=== PATIENT | male | born 1985 | race Caucasian/White ===

== ENCOUNTER 2020-04-27 12:13 | Outpatient (RCR) | payer MEDICAID ==
[~2020-04-27] VITALS: Ht 185 cm; Wt 79.5 kg
[2020-04-27] MEDS ORDERED: PARO-49 PO (12:21)
[2020-04-27] MEDS ORDERED: CETI10TA21 PO (12:21)
[2020-04-27 12:49] LABS: BASOPHILS # (AUTO) 0.1 10^3/uL (0.0-0.1); BASOPHILS % (AUTO) 1 % (0-10); EOSINOPHILS # (AUTO) 0.5 10^3/uL (0.0-0.3); EOSINOPHILS % (AUTO) 8 % (0-10); HEMATOCRIT 43 % (40-54); HEMOGLOBIN 14.7 G/DL (13.3-17.7); LYMPHOCYTES # (AUTO) 1.3 X 10^3 (1.0-4.0); LYMPHOCYTES % (AUTO) 20 % (12-44); MEAN CORPUSCULAR HEMOGLOBIN 34 PG (25-34); MEAN CORPUSCULAR HGB CONC 35 G/DL (32-36); MEAN CORPUSCULAR VOLUME 97 FL (80-99); MEAN PLATELET VOLUME 9.2 FL (7.4-10.4); MONOCYTES # (AUTO) 0.9 X 10^3 (0.0-1.0); MONOCYTES % (AUTO) 13 % (0-12); NEUTROPHILS # (AUTO) 3.8 X 10^3 (1.8-7.8); NEUTROPHILS % (AUTO) 58 % (42-75); PLATELET COUNT 149 10^3/uL (130-400); RED CELL DISTRIBUTION WIDTH 12.7 % (10.0-14.5); WHITE BLOOD COUNT 6.6 10^3/uL (4.3-11.0)
[2020-04-27 12:58] LABS: CHLORIDE 100 MMOL/L (98-107); POTASSIUM 3.8 MMOL/L (3.6-5.0)
[2020-04-27 12:59] LABS: SODIUM 137 MMOL/L (135-145)
[2020-04-27 13:00] LABS: CALCIUM 9.2 MG/DL (8.5-10.1); GLUCOSE 113 MG/DL (70-105)
[2020-04-27 13:02] LABS: CARBON DIOXIDE 27 MMOL/L (21-32)
[2020-04-27 13:04] LABS: CREATININE SERUM 0.93 MG/DL (0.60-1.30); GFR ESTIMATED > 60
[2020-04-27 13:05] LABS: BUN/CREATININE RATIO 12
== END 2020-04-27 14:51 | disposition home or self-care (01) ==
LOC: PREOP 12:13
PROVIDERS: ATTEND Otolaryngology Otolaryngology/Facial Plastic Surgery
DX: Z01.812 Encounter for preprocedural laboratory examination (principal); Z01.810 Encounter for preprocedural cardiovascular examination; Z11.59 Encounter for screening for other viral diseases; J34.3 Hypertrophy of nasal turbinates
CPT/HCPCS: 36415; 80048; 85025; 87081; 87635; 93005

== ENCOUNTER 2020-05-01 06:11 | Day surgery (SDC) | payer MEDICAID ==
[~2020-05-01] VITALS: Ht 185 cm; Wt 79.5 kg
[2020-05-01] VITALS (8 sets, daily range): BP systolic 144–168; BP diastolic 67–99
[~2020-05-01 06:11] MED LIST: CETI10TA21 PO; PARO-49 PO
--- OUTSIDE RECORDS SUMMARY | 2020-05-01 06:17 | XMS REPORT | Clinical Summary ---
Author Author Admin, Thierry Palumbo Organization [employer] Address Unknown Phone Unavailable Allergies, Adverse Reactions, Alerts Allergy Name Reaction Description Start Date Severity Status Pr ovider SULFA Critical Active Robert Alireza A PRN Conditions or Problems Problem Name Problem Code Onset Date Status Entry Date Provider Comment Standard Description Annotate Sinusitis, acute (sinus infection) 461.9 Resolved 2 Quique Frey MD Acute sinusitis, unspecified Pharyngitis, acute / sore throat 462 Resolved 201 9 Quique Frey MD Acute pharyngitis Sinusitis, acute 461.9 Resolved Quique Frey MD Acute sinusitis, unspecified Cough 786.2 Resolved Quique Frey MD Cough BMI 21-21.9 Refinement Quique Frey MD Body Mass Index between 19-24, adult BMI 23-23.9 Active Quique Frey MD Body Mass Index between 19-24, adult Health screening V70.0 Active Quique Carl Routine general medical examination at a health care facility Tobacco dependence, continuous 305.1 Active 05/01 Quique Frey MD Tobacco use disorder Back pain, lumbar, with radiculopathy 724.4 Active Quique Frey MD Thoracic or lumbosacral neuritis or radi culitis, unspecified Neck pain, chronic 723.1 Active Quique Frey MD Cervicalgia Generalized anxiety disorder 300.00 Active Quique Frey MD Anxiety state, unspecified Allergic rhinitis 477.9 Active Quique Frey MD Allergic rhinitis, cause unspecified Hx of vasectomy V26.52 Active Quique Frey MD Vasectomy status Epididymitis Active Anthony Conway MD Orchitis and epididymitis, unspecified Sinus congestion 478.19 Active Quique Carl Other disease of nasal cavity and sinuses Sinusitis, acute (sinus infection) ICD-461.9 I nactive Quique Frey MD Pharyngitis, acute / sore throat ICD-462 [place] ctive Quique Frey MD Sinusitis, acute ICD-461.9 Inactive Quique Graff MD Cough ICD-786.2 Inactive Quique Frey MD 2018 Medication List Medication Instructions Start Date Stop Date Generic Name NDC Status Provider Patient Instruction CIPRO 500 MG ORAL TABLET 1 tablet two times daily 2019 CIPROFLOXACIN HCL 55416373243 No Longer Active Anthony Conway MD Active CHANTIX STARTING MONTH SANG 0.5 MG X 11 & 1 MG X 42 ORAL TABL ET 1 po qd VARENICLINE TARTRATE 91097246999 Active Quique Frey MD Active CHANTIX STARTING MONTH SANG 0.5 MG X 11 & 1 MG X 42 ORAL TABL ET As directed. VARENICLINE TARTRATE 20575457483 No Longer Active Cony Frey MD Active HYDROXYZINE HCL 25 MG ORAL TABLET 1 po TID PRN Anxiety HYDROXYZINE HCL 75950037336 No Longer Active Quique Frey MD Ac tive PAROXETINE HCL 20 MG ORAL TABLET 1 po qd PAR OXETINE HCL 92346728799 Active Quique Frey MD Active OXYCODONE-ACETAMINOPHEN 7.5-325 MG ORAL TABLET 1 po TID OXYCODONE-ACETAMINOPHEN 45075688969 No Longer Active Quique Frey MD Active ZYBAN 150 MG ORAL TABLET EXTENDED RELEASE 12 HOUR 1 po qd x 1 week, then 1 po BID BUPROPION HCL (SMOKING DETER) 20009674622 No Lo nger Active Quique Frey MD Active GABAPENTIN 300 MG ORAL CAPSULE 1 po qHS GABAP ENTIN 65138107453 No Longer Active Quique Frey MD Active CEFDINIR 300 MG ORAL CAPSULE 1 po BID x 10 days CEFDINIR 23500984722 No Longer Active Quique Frey MD Active ZYRTEC ALLERGY 10 MG ORAL CAPSULE 1 po qd CE TIRIZINE HCL 98584737060 No Longer Active Quique Frye MD Active FLONASE 50 MCG/ACT NASAL SUSPENSION 1 spray each nostr il twice daily for allergies and runny nose FLUTICASONE PROPIONATE 32278872978 No Longer Active Quique Frey MD Active ZITHROMAX Z-SANG 250 MG ORAL TABLET 2 today, then 1 daily for 4 d ays AZITHROMYCIN 76051725284 No Longer Active Robert Alireza GAMBINO Active PREDNISONE 50 MG ORAL TABLET take 50 mg dialy for 6 days PREDNISONE 37231651963 No Longer Active Robert Alireza IT HELP DESK ASSOCIATE Active (OXYCODONE-ACETAMINOPHEN) (OXYCODONE-AC ETAMINOPHEN) No Longer Active Robert Alireza IT HELP DESK ASSOCIATE Active FLONASE 50 MCG/ACT NASAL SUSPENSION 1 spray each nostr il twice daily for allergies and runny nose FLONASE 50 MCG/ ACT NASAL SUSPENSION FLUTICASONE PROPIONATE Inactive ZYRTEC ALLERGY 10 MG ORAL CAPSULE 1 po qd ZYRTEC ALLERGY 10 MG ORAL CAPSULE CETIRIZINE HCL Inactive GABAPENTIN 300 MG ORAL CAPSULE 1 po qHS GABAPENTIN 300 MG ORAL CAPSULE 273479 GABAPENTIN Inactive OXYCODONE-ACETAMINOPHEN 7.5-325 MG ORAL TABLET 1 po TID OXYCODONE-ACETAMINOPHEN 7.5-325 MG ORAL TABLET 4661578 OXYCODONE-ALYSA TAMINOPHEN Inactive HYDROXYZINE HCL 25 MG ORAL TABLET 1 po TID PRN Anxiety HYDROXYZINE HCL 25 MG ORAL TABLET 753654 HYDROXYZINE HCL Inacti ve CHANTIX STARTING MONTH SANG 0.5 MG X 11 & 1 MG X 42 ORAL TABL ET As directed. CHANTIX STARTING MONTH SANG 0 .5 MG X 11 & 1 MG X 42 ORAL TABLET VARENICLINE TARTRATE Inactive PREDNISONE 50 MG ORAL TABLET take 50 mg dialy for 6 days PREDNISONE 50 MG ORAL TABLET 337268 PREDNISONE Inactive ZITHROMAX Z-SANG 250 MG ORAL TABLET 2 today, then 1 daily for 4 d ays ZITHROMAX Z-SANG 250 MG ORAL TABLET 322762 AZITHROMYCIN Inactive CEFDINIR 300 MG ORAL CAPSULE 1 po BID x 10 days 02/04 CEFDINIR 300 MG ORAL CAPSULE 693829 CEFDINIR Inactive CIPRO 500 MG ORAL TABLET 1 tablet two times daily 2019 CIPRO 500 MG ORAL TABLET 661507 CIPROFLOXACIN HCL Inactive Vital Signs Date Name Value Unit Range Description blood pressure, diastolic, repeated by physician 74 BP arteaga blood pressure, diastolic 74 mm[Hg] BP arteaga blood pressure, systolic, repeated by physician 140 BP sys blood pressure, systolic 140 mm[Hg] BP sys height E&M 72 [in_us] Bdy height pulse rate E&M 70 /min Heart rate temperature E&M 98.2 [degF] Body temp erature weight E&M 171 [lb_av] Weight Measure d blood pressure, diastolic, repeated by physician 79 BP arteaga blood pressure, diastolic 79 mm[Hg] BP arteaga blood pressure, systolic, repeated by physician 139 BP sys blood pressure, systolic 139 mm[Hg] BP sys height E&M 72 [in_us] Bdy height pulse rate E&M 67 /min Heart rate temperature E&M 98.5 [degF] Body temp erature weight E&M 174.50 [lb_av] Weight Measure d blood pressure, diastolic, repeated by physician 67 BP arteaga blood pressure, diastolic 67 mm[Hg] BP arteaga blood pressure, systolic, repeated by physician 119 BP sys blood pressure, systolic 119 mm[Hg] BP sys height E&M 72 [in_us] Bdy height pulse rate E&M 75 /min Heart rate temperature E&M 97.8 [degF] Body temp erature weight E&M 158.06 [lb_av] Weight Measure d blood pressure, diastolic 74 mm[Hg] BP arteaga blood pressure, systolic 128 mm[Hg] BP sys height E&M 72 [in_us] Bdy height pulse rate E&M 70 /min Heart rate temperature E&M 98.6 [degF] Body temp erature weight E&M 158 [lb_av] Weight Measure d Diagnostic Results Date Name Value Unit Range Description Lab Report: CBC, Comp. Metabolic Panel, Lipid Panel - Chemistry sodium, serum 138 mmol/L 056-879 1480/02/03 carbon dioxide, venous blood 32.8 mmol/L 21.0-32 .0 potassium, serum 4.6 mmol/L 3.5-5.2 chloride, serum 100 mmol/L 98-107 blood glucose 100 mg/dL 65-95 urea nitrogen, blood 16 mg/dL 7-18 creatinine, serum 0.95 mg/dL 0.60-1.30 Estimated Glomerular Filtration Rate (calc) 97 (?) mL/min/1.73m2 = OR > 60 mL/min alanine aminotransferase (SGPT), serum 25 U/L 12-78 aspartate aminotransferase (SGOT), serum 56 U/L 15-37 calcium, serum 9.2 mg/dL 8.5-10.1 bilirubin, serum, total 1.60 mg/dL 0.00-1.00 cholesterol, serum 212 mg/dL 175-112 6331/02/03 triglyceride, serum, fasting 51 mg/dL 30-200 HDL cholesterol, serum 101 mg/dL 32-60 LDL cholesterol, serum 101 mg/dL 0-130 Lab Report: CBC, Comp. Metabolic Panel, Lipid Panel - Hematology leukocyte count, blood 5.3 10^3/MM^3 10*3/mm3 4.6-10.2 erythrocyte (RBC) count 4.97 10^6/MM^3 10*6/mm3 4.50-6.5 0 hemoglobin, blood 16.4 g/dL 14.0-18.0 hematocrit, blood 46.7 % 40.0-54.0 mean corpuscular volume, RBC 94 fL 80-97 mean corpuscular hemoglobin, RBC 33.0 pg 27. 0-31.2 mean corpuscular hemoglobin concentration, RBC 35.1 G/DL % 31.8-35.4 red blood cell distribution width 11.6 % 11 .6-14.8 platelet count 206 10^3/MM^3 10*3/mm3 142-424 Lab Report: CBC, Comp. Metabolic Panel, Lipid Panel - Lab Alkaline phosphatase 66 50-136 Encounters Code Encounter Date Provider Facility CPT-69531 Level 3 New Patient 10:41:29 MARBLE CUTTER OPERATOR Anthony aguila MD [facility] CPT-40558 Level 4 Est. Patient 14:20:42 MARBLE CUTTER OPERATOR Quique Frey MD [facility] CPT-20610 Level 4 Est. Patient 13:56:52 CDT Quique Frey MD [facility] CPT-05665 Level 3 Est. Patient 09:33:16 MARBLE CUTTER OPERATOR Quique Frey MD [facility] CPT-50559 Level 3 Est. Patient 10:05:19 MARBLE CUTTER OPERATOR Robert kurtz APRN [facility] Procedures Code Procedure Name Date Entry Date Standard Desc ription [id number] (4274F 2P) Patient Reason Influenza immu nization not administered 10:41:29 MARBLE CUTTER OPERATOR CPT-38111 Venipuncture Draw Fee 10:11:25 MARBLE CUTTER OPERATOR CPT-49826 Chest, 2 views 09:41:42 MARBLE CUTTER OPERATOR
--- OUTSIDE RECORDS SUMMARY | 2020-05-01 06:17 | XMS REPORT | Clinical Summary ---
Author Author Admin, Thierry Palumbo Organization [employer] Address Unknown Phone Unavailable Allergies, Adverse Reactions, [...] MD Pharyngitis, acute / sore throat ICD-462 [place] ctive Quique Frey MD Sinusitis, acute ICD-461.9 Inactive Quique Graff MD Cough ICD-786.2 Inactive Quique Frey MD 2018 Medication List Medication Instructions Start Date Stop Date Generic Name NDC Status Provider Patient Instruction PAROXETINE HCL 20 MG ORAL TABLET 1.5 po qd PAR OXETINE HCL 81133505545 Active Quique Frey MD Active CIPRO 500 MG ORAL TABLET 1 tablet two times daily 2019 CIPROFLOXACIN HCL 41124437271 No Longer Active Anthony Conway MD Active CHANTIX STARTING MONTH SANG 0.5 MG X 11 & 1 MG X 42 ORAL TABL ET 1 po qd VARENICLINE TARTRATE 91561820211 Active Quique Frey MD Active CHANTIX STARTING MONTH SANG 0.5 MG X 11 & 1 MG X 42 ORAL TABL ET As directed. VARENICLINE TARTRATE 33793237752 No Longer Active Cony Frey MD Active HYDROXYZINE HCL 25 MG ORAL TABLET 1 po TID PRN Anxiety HYDROXYZINE HCL 43524725246 No Longer Active Quique Frey MD Ac tive OXYCODONE-ACETAMINOPHEN 7.5-325 MG ORAL TABLET 1 po TID OXYCODONE-ACETAMINOPHEN 91491879431 No Longer Active Quique Frey MD Active ZYBAN 150 MG ORAL TABLET EXTENDED RELEASE 12 HOUR 1 po qd x 1 week, then 1 po BID BUPROPION HCL (SMOKING DETER) 47236266962 No Lo nger Active Quique Frey MD Active GABAPENTIN 300 MG ORAL CAPSULE 1 po qHS GABAP ENTIN 88661864706 No Longer Active Quique Frey MD Active CEFDINIR 300 MG ORAL CAPSULE 1 po BID x 10 days CEFDINIR 33034754608 No Longer Active Quique Frey MD Active ZYRTEC ALLERGY 10 MG ORAL CAPSULE 1 po qd CE TIRIZINE HCL 78171333263 No Longer Active Quique Frey MD Active FLONASE 50 MCG/ACT NASAL SUSPENSION 1 spray each nostr il twice daily for allergies and runny nose FLUTICASONE PROPIONATE 04176190991 No Longer Active Quique Frey MD Active ZITHROMAX Z-SANG 250 MG ORAL TABLET 2 today, then 1 daily for 4 d ays AZITHROMYCIN 81093556964 No Longer Active Robert Alireza CONVERTING TECHNICIAN Active PREDNISONE 50 MG ORAL TABLET take 50 mg dialy for 6 days PREDNISONE 85185211126 No Longer Active Robert Alireza CONVERTING TECHNICIAN Active (OXYCODONE-ACETAMINOPHEN) (OXYCODONE-AC ETAMINOPHEN) No Longer Active Robert Alireza CONVERTING TECHNICIAN Active CIPRO 500 MG ORAL TABLET 1 tablet two times daily 2019 CIPRO 500 MG ORAL TABLET 782282 CIPROFLOXACIN HCL Inactive HYDROXYZINE HCL 25 MG ORAL TABLET 1 po TID PRN Anxiety HYDROXYZINE HCL 25 MG ORAL TABLET 205457 HYDROXYZINE HCL Inacti ve PREDNISONE 50 MG ORAL TABLET take 50 mg dialy for 6 days PREDNISONE 50 MG ORAL TABLET 093995 PREDNISONE Inactive GABAPENTIN 300 MG ORAL CAPSULE 1 po qHS GABAPENTIN 300 MG ORAL CAPSULE 426287 GABAPENTIN Inactive CEFDINIR 300 MG ORAL CAPSULE 1 po BID x 10 days 02/04 CEFDINIR 300 MG ORAL CAPSULE 061153 CEFDINIR Inactive ZITHROMAX Z-SANG 250 MG ORAL TABLET 2 today, then 1 daily for 4 d ays ZITHROMAX Z-SANG 250 MG ORAL TABLET 109475 AZITHROMYCIN Inactive FLONASE 50 MCG/ACT NASAL SUSPENSION 1 spray each nostr il twice daily for allergies and runny nose FLONASE 50 MCG/ ACT NASAL SUSPENSION FLUTICASONE PROPIONATE Inactive OXYCODONE-ACETAMINOPHEN 7.5-325 MG ORAL TABLET 1 po TID OXYCODONE-ACETAMINOPHEN 7.5-325 MG ORAL TABLET 4946751 OXYCODONE-ALYAS TAMINOPHEN Inactive CHANTIX STARTING MONTH SANG 0.5 MG X 11 & 1 MG X 42 ORAL TABL ET As directed. CHANTIX STARTING MONTH SANG 0 .5 MG X 11 & 1 MG X 42 ORAL TABLET VARENICLINE TARTRATE Inactive ZYRTEC ALLERGY 10 MG ORAL CAPSULE 1 po qd ZYRTEC ALLERGY 10 MG ORAL CAPSULE CETIRIZINE HCL Inactive Vital Signs Date Name Value Unit Range Description blood pressure, diastolic, repeated by physician 74 BP arteaga blood pressure, diastolic 74 mm[Hg] BP arteaga blood pressure, systolic, repeated by physician 140 BP sys blood pressure, systolic 140 mm[Hg] BP sys height E&M 72 [in_us] Bdy height pulse rate 70 /min Heart rate temperature E&M 98.2 [degF] Body temp erature weight E&M 171 [lb_av] Weight Measure d blood pressure, diastolic, repeated by physician 79 BP arteaga blood pressure, diastolic 79 mm[Hg] BP arteaga blood pressure, systolic, repeated by physician 139 BP sys blood pressure, systolic 139 mm[Hg] BP sys height E&M 72 [in_us] Bdy height pulse rate 67 /min Heart rate temperature E&M 98.5 [degF] Body temp erature weight E&M 174.50 [lb_av] Weight Measure d blood pressure, diastolic, repeated by physician 67 BP arteaga blood pressure, diastolic 67 mm[Hg] BP arteaga blood pressure, systolic, repeated by physician 119 BP sys blood pressure, systolic 119 mm[Hg] BP sys height E&M 72 [in_us] Bdy height pulse rate 75 /min Heart rate temperature E&M 97.8 [degF] Body temp erature weight E&M 158.06 [lb_av] Weight Measure d blood pressure, diastolic 74 mm[Hg] BP arteaga blood pressure, systolic 128 mm[Hg] BP sys height E&M 72 [in_us] Bdy height pulse rate 70 /min Heart rate temperature E&M 98.6 [degF] Body temp erature weight E&M 158 [lb_av] Weight Measure d Diagnostic Results Date Name Value Unit Range Description Lab Report: CBC, Comp. Metabolic Panel, Lipid Panel - Chemistry sodium, serum 138 mmol/L 581-620 4011/02/03 carbon dioxide, venous blood 32.8 mmol/L 21.0-32 [...] 1.60 mg/dL 0.00-1.00 cholesterol, serum 212 mg/dL 924-933 6758/02/03 triglyceride, serum, fasting 51 mg/dL 30-200 HDL cholesterol, serum 101 mg/dL 32-60 LDL cholesterol, serum 101 mg/dL 0-130 Lab Report: CBC, Comp. Metabolic Panel, Lipid Panel - Hematology mean corpuscular volume, RBC 94 fL 80-97 hematocrit, blood 46.7 % 40.0-54.0 hemoglobin, blood 16.4 g/dL 14.0-18.0 erythrocyte (RBC) count 4.97 10^6/MM^3 10*6/mm3 4.50-6.5 0 leukocyte count, blood 5.3 10^3/MM^3 10*3/mm3 4.6-10.2 mean corpuscular hemoglobin, RBC 33.0 pg 27. 0-31.2 mean corpuscular hemoglobin concentration, RBC 35.1 G/DL % 31.8-35.4 red blood cell distribution width 11.6 % 11 .6-14.8 platelet count 206 10^3/MM^3 10*3/mm3 142-424 Lab Report: CBC, Comp. Metabolic Panel, Lipid Panel - Lab Alkaline phosphatase 66 50-136 Encounters Code Encounter Date Provider Facility CPT-22593 Level 3 New Patient 10:41:29 DATA CONTROL CLERK Anthony aguila MD [facility] CPT-02422 Level 4 Est. Patient 14:20:42 DATA CONTROL CLERK Quique Frey MD [facility] CPT-72389 Level 4 Est. Patient 13:56:52 CDT Quique Frey MD [facility] CPT-68761 Level 3 Est. Patient 09:33:16 DATA CONTROL CLERK Quique Frey MD [facility] CPT-70444 Level 3 Est. Patient 10:05:19 DATA CONTROL CLERK Robert kurtz APRN [facility] Procedures Code Procedure Name Date Entry Date Standard Desc ription [id number] (4274F 2P) Patient Reason Influenza immu nization not administered 10:41:29 DATA CONTROL CLERK CPT-25751 Venipuncture Draw Fee 10:11:25 DATA CONTROL CLERK CPT-37878 Chest, 2 views 09:41:42 DATA CONTROL CLERK
--- OUTSIDE RECORDS SUMMARY | 2020-05-01 06:17 | XMS REPORT | Clinical Summary ---
Author Author Admin, Thierry Palumbo Organization [employer] Address Unknown Phone Unavailable Allergies, Adverse Reactions, [...] MD Pharyngitis, acute / sore throat ICD-462 [place] ctive Quique Frey MD Sinusitis, acute ICD-461.9 Inactive Quique Graff MD Cough ICD-786.2 Inactive Quique Frey MD 2018 Medication List Medication Instructions Start Date Stop Date Generic Name NDC Status Provider Patient Instruction CIPRO 500 MG ORAL TABLET 1 tablet two times daily 2019 CIPROFLOXACIN HCL 95180482345 No Longer Active Anthony Conway MD Active CHANTIX STARTING MONTH SANG 0.5 MG X 11 & 1 MG X 42 ORAL TABL ET 1 po qd VARENICLINE TARTRATE 85665849404 Active Quique Frey MD Active CHANTIX STARTING MONTH SANG 0.5 MG X 11 & 1 MG X 42 ORAL TABL ET As directed. VARENICLINE TARTRATE 00384300009 No Longer Active Cony Frey MD Active HYDROXYZINE HCL 25 MG ORAL TABLET 1 po TID PRN Anxiety HYDROXYZINE HCL 08182529051 No Longer Active Quique Frey MD Ac tive PAROXETINE HCL 20 MG ORAL TABLET 1 po qd PAR OXETINE HCL 32236390627 Active Quique Frey MD Active OXYCODONE-ACETAMINOPHEN 7.5-325 MG ORAL TABLET 1 po TID OXYCODONE-ACETAMINOPHEN 68032058886 No Longer Active Quique Frey MD Active ZYBAN 150 MG ORAL TABLET EXTENDED RELEASE 12 HOUR 1 po qd x 1 week, then 1 po BID BUPROPION HCL (SMOKING DETER) 68314024744 No Lo nger Active Quique Frey MD Active GABAPENTIN 300 MG ORAL CAPSULE 1 po qHS GABAP ENTIN 62443284021 No Longer Active Quique Frey MD Active CEFDINIR 300 MG ORAL CAPSULE 1 po BID x 10 days CEFDINIR 39268570593 No Longer Active Quique Frey MD Active ZYRTEC ALLERGY 10 MG ORAL CAPSULE 1 po qd CE TIRIZINE HCL 60905306688 No Longer Active Quique Frey MD Active FLONASE 50 MCG/ACT NASAL SUSPENSION 1 spray each nostr il twice daily for allergies and runny nose FLUTICASONE PROPIONATE 92955958744 No Longer Active Quique Frey MD Active ZITHROMAX Z-ASNG 250 MG ORAL TABLET 2 today, then 1 daily for 4 d ays AZITHROMYCIN 24951861083 No Longer Active Robert Alireza GAMBINO Active PREDNISONE 50 MG ORAL TABLET take 50 mg dialy for 6 days PREDNISONE 38159499212 No Longer Active Robert Alireza FIRE COORDINATOR Active (OXYCODONE-ACETAMINOPHEN) (OXYCODONE-AC ETAMINOPHEN) No Longer Active Robert Alireza FIRE COORDINATOR Active FLONASE 50 MCG/ACT NASAL SUSPENSION 1 spray each nostr il twice daily for allergies and runny nose FLONASE 50 MCG/ ACT NASAL SUSPENSION FLUTICASONE PROPIONATE Inactive ZYRTEC ALLERGY 10 MG ORAL CAPSULE 1 po qd ZYRTEC ALLERGY 10 MG ORAL CAPSULE CETIRIZINE HCL Inactive GABAPENTIN 300 MG ORAL CAPSULE 1 po qHS GABAPENTIN 300 MG ORAL CAPSULE 481822 GABAPENTIN Inactive OXYCODONE-ACETAMINOPHEN 7.5-325 MG ORAL TABLET 1 po TID OXYCODONE-ACETAMINOPHEN 7.5-325 MG ORAL TABLET 4813278 OXYCODONE-ALYSA TAMINOPHEN Inactive HYDROXYZINE HCL 25 MG ORAL TABLET 1 po TID PRN Anxiety HYDROXYZINE HCL 25 MG ORAL TABLET 286993 HYDROXYZINE HCL Inacti ve CHANTIX STARTING MONTH SANG 0.5 MG X 11 & 1 MG X 42 ORAL TABL ET As directed. CHANTIX STARTING MONTH SANG 0 .5 MG X 11 & 1 MG X 42 ORAL TABLET VARENICLINE TARTRATE Inactive PREDNISONE 50 MG ORAL TABLET take 50 mg dialy for 6 days PREDNISONE 50 MG ORAL TABLET 143920 PREDNISONE Inactive ZITHROMAX Z-SANG 250 MG ORAL TABLET 2 today, then 1 daily for 4 d ays ZITHROMAX Z-SANG 250 MG ORAL TABLET 191810 AZITHROMYCIN Inactive CEFDINIR 300 MG ORAL CAPSULE 1 po BID x 10 days 02/04 CEFDINIR 300 MG ORAL CAPSULE 153623 CEFDINIR Inactive CIPRO 500 MG ORAL TABLET 1 tablet two times daily 2019 CIPRO 500 MG ORAL TABLET 237312 CIPROFLOXACIN HCL Inactive Vital Signs Date Name [...] Panel - Chemistry sodium, serum 138 mmol/L 551-093 4476/02/03 carbon dioxide, venous blood 32.8 mmol/L 21.0-32 [...] 1.60 mg/dL 0.00-1.00 cholesterol, serum 212 mg/dL 982-234 1139/02/03 triglyceride, serum, fasting 51 mg/dL 30-200 HDL [...] 50-136 Encounters Code Encounter Date Provider Facility CPT-50000 Level 3 New Patient 10:41:29 PROTOHISTORIAN Anthony aguila MD [facility] CPT-07951 Level 4 Est. Patient 14:20:42 PROTOHISTORIAN Quique Frey MD [facility] CPT-63166 Level 4 Est. Patient 13:56:52 CDT Quique Frey MD [facility] CPT-34054 Level 3 Est. Patient 09:33:16 PROTOHISTORIAN Quique Frey MD [facility] CPT-61020 Level 3 Est. Patient 10:05:19 PROTOHISTORIAN Robert kurtz APRN [facility] Procedures Code Procedure Name Date Entry Date Standard Desc ription [id number] (4274F 2P) Patient Reason Influenza immu nization not administered 10:41:29 PROTOHISTORIAN CPT-55578 Venipuncture Draw Fee 10:11:25 PROTOHISTORIAN CPT-30336 Chest, 2 views 09:41:42 PROTOHISTORIAN
--- OUTSIDE RECORDS SUMMARY | 2020-05-01 06:18 | XMS REPORT | Clinical Summary ---
Author Author Admin, Thierry Palumbo Organization [facility] Address Unknown Phone Unavailable Allergies, Adverse Reactions, [...] V26.52 Active Quique Frey MD Vasectomy status Sinusitis, acute (sinus infection) ICD-461.9 I nactive Quique Frey MD Pharyngitis, acute / sore throat ICD-462 [place] ctive Quique Frey MD Sinusitis, acute ICD-461.9 Inactive Quique Graff MD Cough ICD-786.2 Inactive Quique Frey MD 2018 Medication List Medication Instructions Start Date Stop Date Generic Name NDC Status Provider Patient Instruction CHANTIX STARTING MONTH SANG 0.5 MG X 11 & 1 MG X 42 ORAL TABL ET 1 po qd VARENICLINE TARTRATE 80762236882 Active Quique Frey MD Active CHANTIX STARTING MONTH SANG 0.5 MG X 11 & 1 MG X 42 ORAL TABL ET As directed. VARENICLINE TARTRATE 25246217811 No Longer Active Mar wayne Frey MD Active HYDROXYZINE HCL 25 MG ORAL TABLET 1 po TID PRN Anxiety HYDROXYZINE HCL 34468228679 No Longer Active Quique Frey MD Ac tive PAROXETINE HCL 20 MG ORAL TABLET 1 po qd PAR OXETINE HCL 41573162593 Active Quique Frey MD Active OXYCODONE-ACETAMINOPHEN 7.5-325 MG ORAL TABLET 1 po TID OXYCODONE-ACETAMINOPHEN 90778242549 No Longer Active Quique Frey MD Active ZYBAN 150 MG ORAL TABLET EXTENDED RELEASE 12 HOUR 1 po qd x 1 week, then 1 po BID BUPROPION HCL (SMOKING DETER) 78013421709 No Lo nger Active Quique Frey MD Active GABAPENTIN 300 MG ORAL CAPSULE 1 po qHS GABAP ENTIN 19759411684 No Longer Active Quique Frey MD Active CEFDINIR 300 MG ORAL CAPSULE 1 po BID x 10 days CEFDINIR 59819842581 No Longer Active Quique Frey MD Active ZYRTEC ALLERGY 10 MG ORAL CAPSULE 1 po qd CE TIRIZINE HCL 00325746686 No Longer Active Quique Frey MD Active FLONASE 50 MCG/ACT NASAL SUSPENSION 1 spray each nostr il twice daily for allergies and runny nose FLUTICASONE PROPIONATE 91975193475 No Longer Active Quique Frey MD Active ZITHROMAX Z-SANG 250 MG ORAL TABLET 2 today, then 1 daily for 4 d ays AZITHROMYCIN 57993959576 No Longer Active Robert Alireza DRY CLEANER HELPER Active PREDNISONE 50 MG ORAL TABLET take 50 mg dialy for 6 days PREDNISONE 13026617617 No Longer Active Robert Alireza DRY CLEANER HELPER Active (OXYCODONE-ACETAMINOPHEN) (OXYCODONE-AC ETAMINOPHEN) No Longer Active Robert Alireza DRY CLEANER HELPER Active FLONASE 50 MCG/ACT NASAL SUSPENSION 1 spray each nostr il twice daily for allergies and runny nose FLONASE 50 MCG/ ACT NASAL SUSPENSION FLUTICASONE PROPIONATE Inactive ZYRTEC ALLERGY 10 MG ORAL CAPSULE 1 po qd ZYRTEC ALLERGY 10 MG ORAL CAPSULE CETIRIZINE HCL Inactive GABAPENTIN 300 MG ORAL CAPSULE 1 po qHS GABAPENTIN 300 MG ORAL CAPSULE 929608 GABAPENTIN Inactive OXYCODONE-ACETAMINOPHEN 7.5-325 MG ORAL TABLET 1 po TID OXYCODONE-ACETAMINOPHEN 7.5-325 MG ORAL TABLET 6210691 OXYCODONE-ALYSA TAMINOPHEN Inactive HYDROXYZINE HCL 25 MG ORAL TABLET 1 po TID PRN Anxiety HYDROXYZINE HCL 25 MG ORAL TABLET 346297 HYDROXYZINE HCL Inacti ve CHANTIX STARTING MONTH SANG 0.5 MG X 11 & 1 MG X 42 ORAL TABL ET As directed. CHANTIX STARTING MONTH SANG 0 .5 MG X 11 & 1 MG X 42 ORAL TABLET VARENICLINE TARTRATE Inactive PREDNISONE 50 MG ORAL TABLET take 50 mg dialy for 6 days PREDNISONE 50 MG ORAL TABLET 742683 PREDNISONE Inactive ZITHROMAX Z-SANG 250 MG ORAL TABLET 2 today, then 1 daily for 4 d ays ZITHROMAX Z-SANG 250 MG ORAL TABLET 363760 AZITHROMYCIN Inactive CEFDINIR 300 MG ORAL CAPSULE 1 po BID x 10 days 02/04 CEFDINIR 300 MG ORAL CAPSULE 648166 CEFDINIR Inactive Vital Signs Date Name Value Unit Range Description blood pressure, diastolic, repeated by physician 79 [...] weight E&M 158 [lb_av] Weight Measure d blood pressure, diastolic 72 mm[Hg] BP artaega blood pressure, systolic 127 mm[Hg] BP sys height E&M 72 [in_us] Bdy height pulse rate E&M 75 /min Heart rate temperature E&M 98.0 [degF] Body temp erature weight E&M 152.50 [lb_av] Weight Measure d blood pressure, diastolic, repeated by physician 71 BP arteaga blood pressure, diastolic 71 mm[Hg] BP arteaga blood pressure, systolic, repeated by physician 140 BP sys blood pressure, systolic 140 mm[Hg] BP sys pulse rate E&M 74 /min Heart rate temperature E&M 97.6 [degF] Body temp erature weight E&M 152 [lb_av] Weight Measure d Diagnostic Results Date Name Value Unit Range Description Lab Report: CBC W/DIFF - Hematology leukocyte count, blood 6.4 10^3/MM^3 10*3/mm3 4.6-10.2 neutrophils as percent of blood leukocytes 65.8 % 42.2-75.2 monocytes as percent of blood leukocytes 9.6 % 1.7-9.3 lymphocytes as percent of blood leukocytes 21.3 % 20.5-51.1 erythrocyte (RBC) count 5.17 10^6/MM^3 10*6/mm3 4.50-6.5 0 hemoglobin, blood 16.5 g/dL 14.0-18.0 hematocrit, blood 48.7 % 40.0-54.0 mean corpuscular volume, RBC 94 fL 80-97 mean corpuscular hemoglobin, RBC 32.0 pg 27. 0-31.2 mean corpuscular hemoglobin concentration, RBC 33.9 G/DL % 31.8-35.4 red blood cell distribution width 10.9 % 11 .6-14.8 platelet count 250 10^3/MM^3 10*3/mm3 142-424 Lab Report: CBC, Comp. Metabolic Panel, Lipid Panel - Chemistry sodium, serum 138 mmol/L 633-485 8144/02/03 carbon dioxide, venous blood 32.8 mmol/L 21.0-32 [...] 1.60 mg/dL 0.00-1.00 cholesterol, serum 212 mg/dL 514-725 3447/02/03 triglyceride, serum, fasting 51 mg/dL 30-200 HDL [...] Panel - Lab Alkaline phosphatase 66 50-136 Lab Report: Comp. Metabolic Panel - Chem istry sodium, serum 138 mmol/L 708-085 7556/03/01 carbon dioxide, venous blood 29.2 mmol/L 21.0-32 .0 potassium, serum 4.5 mmol/L 3.5-5.2 chloride, serum 98 mmol/L 98-107 blood glucose 82 mg/dL 65-95 urea nitrogen, blood 14 mg/dL 7-18 creatinine, serum 0.83 mg/dL 0.60-1.30 Estimated Glomerular Filtration Rate (calc) 115 (?) mL/min/1.73m2 = OR > 60 mL/min alanine aminotransferase (SGPT), serum 32 U/L 12-78 aspartate aminotransferase (SGOT), serum 33 U/L 15-37 calcium, serum 8.6 mg/dL 8.5-10.1 bilirubin, serum, total 1.70 mg/dL 0.00-1.00 Lab Report: Comp. Metabolic Panel - Lab Alkaline phosphatase 62 50-136 Office Visit: chest congestion, headache s 302 - Chemistry HDL cholesterol, serum, target level 40 mg/dL cholesterol, target level 200 mg/dL triglyceride, target level 150 mg/dL Encounters Code Encounter Date Provider Facility CPT-67355 Level 4 Est. Patient 14:20:42 DIGITAL MARKETING ANALYST Quique Frey MD [facility] CPT-71060 Level 4 Est. Patient 13:56:52 CDT Quique Frey MD [facility] CPT-65103 Level 3 Est. Patient 09:33:16 DIGITAL MARKETING ANALYST Quique Frey MD [facility] CPT-86829 Level 3 Est. Patient 10:05:19 DIGITAL MARKETING ANALYST Robert [facility]avarriae [facility] Procedures Code Procedure Name Date Entry Date Standard Desc ription CPT-81225 Venipuncture Draw Fee 10:11:25 DIGITAL MARKETING ANALYST CPT-35165 Chest, 2 views 09:41:42 DIGITAL MARKETING ANALYST
--- OUTSIDE RECORDS SUMMARY | 2020-05-01 06:18 | XMS REPORT | Clinical Summary ---
Author Author Admin, Thierry Palumbo Organization [employer] Address Unknown Phone Unavailable Allergies, Adverse Reactions, [...] Anthony Conway MD Orchitis and epididymitis, unspecified Sinusitis, acute (sinus infection) ICD-461.9 I nactive Quique Frey MD Pharyngitis, acute / sore throat ICD-462 [place] ctive Quique Frey MD Sinusitis, acute ICD-461.9 Inactive Quique Graff MD Cough ICD-786.2 Inactive Quique Frey MD 2018 Medication List Medication Instructions Start Date Stop Date Generic Name NDC Status Provider Patient Instruction CIPRO 500 MG ORAL TABLET 1 tablet two times daily 2019 CIPROFLOXACIN HCL 73961546878 Active Anthony Conway MD Act kd CHANTIX STARTING MONTH SANG 0.5 MG X 11 & 1 MG X 42 ORAL TABL ET 1 po qd VARENICLINE TARTRATE 19254029528 Active Quique Frey MD Active CHANTIX STARTING MONTH SANG 0.5 MG X 11 & 1 MG X 42 ORAL TABL ET As directed. VARENICLINE TARTRATE 43415019014 No Longer Active Cony Frey MD Active HYDROXYZINE HCL 25 MG ORAL TABLET 1 po TID PRN Anxiety HYDROXYZINE HCL 71134172827 No Longer Active Quique Frey MD Ac tive PAROXETINE HCL 20 MG ORAL TABLET 1 po qd PAR OXETINE HCL 33367379484 Active Quique rFey MD Active OXYCODONE-ACETAMINOPHEN 7.5-325 MG ORAL TABLET 1 po TID OXYCODONE-ACETAMINOPHEN 46777324272 No Longer Active Quique Frey MD Active ZYBAN 150 MG ORAL TABLET EXTENDED RELEASE 12 HOUR 1 po qd x 1 week, then 1 po BID BUPROPION HCL (SMOKING DETER) 67220421845 No Lo nger Active Quique Frey MD Active GABAPENTIN 300 MG ORAL CAPSULE 1 po qHS GABAP ENTIN 03347530112 No Longer Active Quique Frey MD Active CEFDINIR 300 MG ORAL CAPSULE 1 po BID x 10 days CEFDINIR 26125644300 No Longer Active Quique Frey MD Active ZYRTEC ALLERGY 10 MG ORAL CAPSULE 1 po qd CE TIRIZINE HCL 30498320923 No Longer Active Quique Frey MD Active FLONASE 50 MCG/ACT NASAL SUSPENSION 1 spray each nostr il twice daily for allergies and runny nose FLUTICASONE PROPIONATE 56437879897 No Longer Active Quique Frey MD Active ZITHROMAX Z-SANG 250 MG ORAL TABLET 2 today, then 1 daily for 4 d ays AZITHROMYCIN 83627806325 No Longer Active Robert Lay APRN Active PREDNISONE 50 MG ORAL TABLET take 50 mg dialy for 6 days PREDNISONE 02333816209 No Longer Active Robert Alireza NAIL MAKER Active (OXYCODONE-ACETAMINOPHEN) (OXYCODONE-AC ETAMINOPHEN) No Longer Active Robert Alireza NAIL MAKER Active FLONASE 50 MCG/ACT NASAL SUSPENSION 1 spray each nostr il twice daily for allergies and runny nose FLONASE 50 MCG/ ACT NASAL SUSPENSION FLUTICASONE PROPIONATE Inactive ZYRTEC ALLERGY 10 MG ORAL CAPSULE 1 po qd ZYRTEC ALLERGY 10 MG ORAL CAPSULE CETIRIZINE HCL Inactive GABAPENTIN 300 MG ORAL CAPSULE 1 po qHS GABAPENTIN 300 MG ORAL CAPSULE 428930 GABAPENTIN Inactive OXYCODONE-ACETAMINOPHEN 7.5-325 MG ORAL TABLET 1 po TID OXYCODONE-ACETAMINOPHEN 7.5-325 MG ORAL TABLET 6875041 OXYCODONE-ALYSA TAMINOPHEN Inactive HYDROXYZINE HCL 25 MG ORAL TABLET 1 po TID PRN Anxiety HYDROXYZINE HCL 25 MG ORAL TABLET 359012 HYDROXYZINE HCL Inacti ve CHANTIX STARTING MONTH SANG 0.5 MG X 11 & 1 MG X 42 ORAL TABL ET As directed. CHANTIX STARTING MONTH SANG 0 .5 MG X 11 & 1 MG X 42 ORAL TABLET VARENICLINE TARTRATE Inactive PREDNISONE 50 MG ORAL TABLET take 50 mg dialy for 6 days PREDNISONE 50 MG ORAL TABLET 171437 PREDNISONE Inactive ZITHROMAX Z-SANG 250 MG ORAL TABLET 2 today, then 1 daily for 4 d ays ZITHROMAX Z-SANG 250 MG ORAL TABLET 625256 AZITHROMYCIN Inactive CEFDINIR 300 MG ORAL CAPSULE 1 po BID x 10 days 02/04 CEFDINIR 300 MG ORAL CAPSULE 014007 CEFDINIR Inactive Vital Signs Date Name Value [...] d blood pressure, diastolic 72 mm[Hg] BP arteaga blood pressure, systolic 127 mm[Hg] BP sys [...] Panel - Chemistry sodium, serum 138 mmol/L 921-596 8802/02/03 carbon dioxide, venous blood 32.8 mmol/L 21.0-32 [...] 1.60 mg/dL 0.00-1.00 cholesterol, serum 212 mg/dL 006-357 4878/02/03 triglyceride, serum, fasting 51 mg/dL 30-200 HDL [...] - Chem istry sodium, serum 138 mmol/L 117-123 5639/03/01 carbon dioxide, venous blood 29.2 mmol/L 21.0-32 [...] mg/dL Encounters Code Encounter Date Provider Facility CPT-24805 Level 3 New Patient 10:41:29 SLEEVE SEPARATOR Anthony aguila MD [facility] CPT-26993 Level 4 Est. Patient 14:20:42 SLEEVE SEPARATOR Quique Frey MD [facility] CPT-29755 Level 4 Est. Patient 13:56:52 CDT Quique Frey MD [facility] CPT-87919 Level 3 Est. Patient 09:33:16 SLEEVE SEPARATOR Quique Frey MD [facility] CPT-37421 Level 3 Est. Patient 10:05:19 SLEEVE SEPARATOR Robert kurtz APRN [facility] Procedures Code Procedure Name Date Entry Date Standard Desc ription [id number] (4274F 2P) Patient Reason Influenza immu nization not administered 10:41:29 SLEEVE SEPARATOR CPT-71394 Venipuncture Draw Fee 10:11:25 SLEEVE SEPARATOR CPT-55034 Chest, 2 views 09:41:42 SLEEVE SEPARATOR
--- OUTSIDE RECORDS SUMMARY | 2020-05-01 06:18 | XMS REPORT | Clinical Summary ---
Author Author Admin, Thierry Palumbo Organization [employer] Address Unknown Phone Unavailable Allergies, Adverse Reactions, [...] V26.52 Active Quique Frey MD Vasectomy status Pharyngitis, acute / sore throat ICD-462 [place] ctive Quique Frey MD Sinusitis, acute ICD-461.9 Inactive Quique Graff MD Cough ICD-786.2 Inactive Quique Frey MD 2018 Sinusitis, acute (sinus infection) ICD-461.9 I nactive Quique Frey MD Medication List Medication Instructions Start Date Stop Date Generic Name NDC Status Provider Patient Instruction CHANTIX STARTING MONTH SANG 0.5 MG X 11 & 1 MG X 42 ORAL TABL ET 1 po qd VARENICLINE TARTRATE 79059626117 Active Quique Frey MD Active CHANTIX STARTING MONTH SANG 0.5 MG X 11 & 1 MG X 42 ORAL TABL ET As directed. VARENICLINE TARTRATE 13341835064 No Longer Active Mar wayne Frey MD Active HYDROXYZINE HCL 25 MG ORAL TABLET 1 po TID PRN Anxiety HYDROXYZINE HCL 58561657619 No Longer Active Quique Frey MD Ac tive PAROXETINE HCL 20 MG ORAL TABLET 1 po qd PAR OXETINE HCL 97990417215 Active Quique Frey MD Active OXYCODONE-ACETAMINOPHEN 7.5-325 MG ORAL TABLET 1 po TID OXYCODONE-ACETAMINOPHEN 32817740392 No Longer Active Quique Frey MD Active ZYBAN 150 MG ORAL TABLET EXTENDED RELEASE 12 HOUR 1 po qd x 1 week, then 1 po BID BUPROPION HCL (SMOKING DETER) 75635615523 No Lo nger Active Quique Frey MD Active GABAPENTIN 300 MG ORAL CAPSULE 1 po qHS GABAP ENTIN 74689695631 No Longer Active Quique Frey MD Active CEFDINIR 300 MG ORAL CAPSULE 1 po BID x 10 days CEFDINIR 87517934823 No Longer Active Quique Frey MD Active ZYRTEC ALLERGY 10 MG ORAL CAPSULE 1 po qd CE TIRIZINE HCL 43573448404 No Longer Active Quique Frey MD Active FLONASE 50 MCG/ACT NASAL SUSPENSION 1 spray each nostr il twice daily for allergies and runny nose FLUTICASONE PROPIONATE 00645745466 No Longer Active Quique Frey MD Active ZITHROMAX Z-SANG 250 MG ORAL TABLET 2 today, then 1 daily for 4 d ays AZITHROMYCIN 82035382060 No Longer Active Robert Alireza ENDOSCOPY TECHNICAN Active PREDNISONE 50 MG ORAL TABLET take 50 mg dialy for 6 days PREDNISONE 64980206158 No Longer Active Robert Alireza ENDOSCOPY TECHNICAN Active (OXYCODONE-ACETAMINOPHEN) (OXYCODONE-AC ETAMINOPHEN) No Longer Active Robert Alireza ENDOSCOPY TECHNICAN Active FLONASE 50 MCG/ACT NASAL SUSPENSION 1 spray each nostr il twice daily for allergies and runny nose FLONASE 50 MCG/ ACT NASAL SUSPENSION FLUTICASONE PROPIONATE Inactive ZYRTEC ALLERGY 10 MG ORAL CAPSULE 1 po qd ZYRTEC ALLERGY 10 MG ORAL CAPSULE CETIRIZINE HCL Inactive GABAPENTIN 300 MG ORAL CAPSULE 1 po qHS GABAPENTIN 300 MG ORAL CAPSULE 948903 GABAPENTIN Inactive OXYCODONE-ACETAMINOPHEN 7.5-325 MG ORAL TABLET 1 po TID OXYCODONE-ACETAMINOPHEN 7.5-325 MG ORAL TABLET 6066700 OXYCODONE-ALYSA TAMINOPHEN Inactive HYDROXYZINE HCL 25 MG ORAL TABLET 1 po TID PRN Anxiety HYDROXYZINE HCL 25 MG ORAL TABLET 767780 HYDROXYZINE HCL Inacti ve CHANTIX STARTING MONTH SANG 0.5 MG X 11 & 1 MG X 42 ORAL TABL ET As directed. CHANTIX STARTING MONTH SANG 0 .5 MG X 11 & 1 MG X 42 ORAL TABLET VARENICLINE TARTRATE Inactive PREDNISONE 50 MG ORAL TABLET take 50 mg dialy for 6 days PREDNISONE 50 MG ORAL TABLET 857985 PREDNISONE Inactive ZITHROMAX Z-SANG 250 MG ORAL TABLET 2 today, then 1 daily for 4 d ays ZITHROMAX Z-SANG 250 MG ORAL TABLET 085715 AZITHROMYCIN Inactive CEFDINIR 300 MG ORAL CAPSULE 1 po BID x 10 days 02/04 CEFDINIR 300 MG ORAL CAPSULE 579525 CEFDINIR Inactive Vital Signs Date Name Value [...] Description Lab Report: CBC W/DIFF - Hematology red blood cell distribution width 10.9 % 11 .6-14.8 platelet count 250 10^3/MM^3 10*3/mm3 767-380 4750/03/01 mean corpuscular hemoglobin concentration, RBC 33.9 G/DL % 31.8-35.4 mean corpuscular hemoglobin, RBC 32.0 pg 27. 0-31.2 mean corpuscular volume, RBC 94 fL 80-97 hematocrit, blood 48.7 % 40.0-54.0 erythrocyte (RBC) count 5.17 10^6/MM^3 10*6/mm3 4.50-6.5 0 lymphocytes as percent of blood leukocytes 21.3 % 20.5-51.1 monocytes as percent of blood leukocytes 9.6 % 1.7-9.3 neutrophils as percent of blood leukocytes 65.8 % 42.2-75.2 leukocyte count, blood 6.4 10^3/MM^3 10*3/mm3 4.6-10.2 hemoglobin, blood 16.5 g/dL 14.0-18.0 Lab Report: CBC, Comp. Metabolic Panel, Lipid Panel - Chemistry calcium, serum 9.2 mg/dL 8.5-10.1 bilirubin, serum, total 1.60 mg/dL 0.00-1.00 cholesterol, serum 212 mg/dL 349-867 0596/02/03 triglyceride, serum, fasting 51 mg/dL 30-200 HDL cholesterol, serum 101 mg/dL 32-60 LDL cholesterol, serum 101 mg/dL 0-130 aspartate aminotransferase (SGOT), serum 56 U/L 15-37 blood glucose 100 mg/dL 65-95 urea nitrogen, blood 16 mg/dL 7-18 creatinine, serum 0.95 mg/dL 0.60-1.30 Estimated Glomerular Filtration Rate (calc) 97 (?) mL/min/1.73m2 = OR > 60 mL/min alanine aminotransferase (SGPT), serum 25 U/L 12-78 sodium, serum 138 mmol/L 613-658 0306/02/03 carbon dioxide, venous blood 32.8 mmol/L 21.0-32 .0 potassium, serum 4.6 mmol/L 3.5-5.2 chloride, serum 100 mmol/L 98-107 Lab Report: CBC, Comp. Metabolic Panel, Lipid [...] - Chem istry sodium, serum 138 mmol/L 960-514 7258/03/01 carbon dioxide, venous blood 29.2 mmol/L 21.0-32 [...] mg/dL Encounters Code Encounter Date Provider Facility CPT-09270 Level 4 Est. Patient 14:20:42 MAINTENANCE SPECIALIST Quique Frey MD [facility] CPT-93845 Level 4 Est. Patient 13:56:52 CDT Quique Frey MD [facility] CPT-62460 Level 3 Est. Patient 09:33:16 MAINTENANCE SPECIALIST Quique Frey MD [facility] CPT-23273 Level 3 Est. Patient 10:05:19 MAINTENANCE SPECIALIST [facility] Procedures Code Procedure Name Date Entry Date Standard Desc ription CPT-82736 Venipuncture Draw Fee 10:11:25 MAINTENANCE SPECIALIST CPT-24362 Chest, 2 views 09:41:42 MAINTENANCE SPECIALIST
--- OUTSIDE RECORDS SUMMARY | 2020-05-01 06:18 | XMS REPORT | Clinical Summary ---
Author Author Admin, Thierry Palumbo Organization [employer] Address Unknown Phone Unavailable Allergies, Adverse Reactions, [...] Acute sinusitis, unspecified Cough 786.2 Resolved Quique Frye MD Cough BMI 21-21.9 Refinement Quique Frey [...] MD Pharyngitis, acute / sore throat ICD-462 [place] ctive Quique Frey MD Sinusitis, acute ICD-461.9 Inactive Quique Graff MD Cough ICD-786.2 Inactive Quique Frey MD 2018 Medication List Medication Instructions Start Date Stop Date Generic Name NDC Status Provider Patient Instruction CIPRO 500 MG ORAL TABLET 1 tablet two times daily 2019 CIPROFLOXACIN HCL 51147178352 Active Anthony Conway MD Act kd CHANTIX STARTING MONTH SANG 0.5 MG X 11 & 1 MG X 42 ORAL TABL ET 1 po qd VARENICLINE TARTRATE 16745410428 Active Quique Frey MD Active CHANTIX STARTING MONTH SANG 0.5 MG X 11 & 1 MG X 42 ORAL TABL ET As directed. VARENICLINE TARTRATE 30313264067 No Longer Active Cony Frey MD Active HYDROXYZINE HCL 25 MG ORAL TABLET 1 po TID PRN Anxiety HYDROXYZINE HCL 46925430247 No Longer Active Quique Frey MD Ac tive PAROXETINE HCL 20 MG ORAL TABLET 1 po qd PAR OXETINE HCL 79355870571 Active Quique Frey MD Active OXYCODONE-ACETAMINOPHEN 7.5-325 MG ORAL TABLET 1 po TID OXYCODONE-ACETAMINOPHEN 29856769143 No Longer Active Quique Frey MD Active ZYBAN 150 MG ORAL TABLET EXTENDED RELEASE 12 HOUR 1 po qd x 1 week, then 1 po BID BUPROPION HCL (SMOKING DETER) 29634723507 No Lo nger Active Quique Frey MD Active GABAPENTIN 300 MG ORAL CAPSULE 1 po qHS GABAP ENTIN 27171966145 No Longer Active Quique Frey MD Active CEFDINIR 300 MG ORAL CAPSULE 1 po BID x 10 days CEFDINIR 04162807988 No Longer Active Quique Frey MD Active ZYRTEC ALLERGY 10 MG ORAL CAPSULE 1 po qd CE TIRIZINE HCL 43686950305 No Longer Active Quique Frey MD Active FLONASE 50 MCG/ACT NASAL SUSPENSION 1 spray each nostr il twice daily for allergies and runny nose FLUTICASONE PROPIONATE 98286818214 No Longer Active Quique Frey MD Active ZITHROMAX Z-SANG 250 MG ORAL TABLET 2 today, then 1 daily for 4 d ays AZITHROMYCIN 91158846017 No Longer Active Robert Lay APRN Active PREDNISONE 50 MG ORAL TABLET take 50 mg dialy for 6 days PREDNISONE 18099276427 No Longer Active Robert Alireza YARD OPERATOR Active (OXYCODONE-ACETAMINOPHEN) (OXYCODONE-AC ETAMINOPHEN) No Longer Active Robert Alireza YARD OPERATOR Active FLONASE 50 MCG/ACT NASAL SUSPENSION 1 spray each nostr il twice daily for allergies and runny nose FLONASE 50 MCG/ ACT NASAL SUSPENSION FLUTICASONE PROPIONATE Inactive ZYRTEC ALLERGY 10 MG ORAL CAPSULE 1 po qd ZYRTEC ALLERGY 10 MG ORAL CAPSULE CETIRIZINE HCL Inactive GABAPENTIN 300 MG ORAL CAPSULE 1 po qHS GABAPENTIN 300 MG ORAL CAPSULE 259324 GABAPENTIN Inactive OXYCODONE-ACETAMINOPHEN 7.5-325 MG ORAL TABLET 1 po TID OXYCODONE-ACETAMINOPHEN 7.5-325 MG ORAL TABLET 7207405 OXYCODONE-ALYSA TAMINOPHEN Inactive HYDROXYZINE HCL 25 MG ORAL TABLET 1 po TID PRN Anxiety HYDROXYZINE HCL 25 MG ORAL TABLET 733082 HYDROXYZINE HCL Inacti ve CHANTIX STARTING MONTH SANG 0.5 MG X 11 & 1 MG X 42 ORAL TABL ET As directed. CHANTIX STARTING MONTH SANG 0 .5 MG X 11 & 1 MG X 42 ORAL TABLET VARENICLINE TARTRATE Inactive PREDNISONE 50 MG ORAL TABLET take 50 mg dialy for 6 days PREDNISONE 50 MG ORAL TABLET 251407 PREDNISONE Inactive ZITHROMAX Z-SANG 250 MG ORAL TABLET 2 today, then 1 daily for 4 d ays ZITHROMAX Z-SANG 250 MG ORAL TABLET 577999 AZITHROMYCIN Inactive CEFDINIR 300 MG ORAL CAPSULE 1 po BID x 10 days 02/04 CEFDINIR 300 MG ORAL CAPSULE 968180 CEFDINIR Inactive Vital Signs Date Name Value [...] Panel - Chemistry sodium, serum 138 mmol/L 086-530 2414/02/03 carbon dioxide, venous blood 32.8 mmol/L 21.0-32 [...] 1.60 mg/dL 0.00-1.00 cholesterol, serum 212 mg/dL 930-803 1731/02/03 triglyceride, serum, fasting 51 mg/dL 30-200 HDL [...] - Chem istry sodium, serum 138 mmol/L 357-629 9238/03/01 carbon dioxide, venous blood 29.2 mmol/L 21.0-32 [...] mg/dL Encounters Code Encounter Date Provider Facility CPT-73516 Level 3 New Patient 10:41:29 OFFICE ADMINISTRATOR Anthony aguila MD [facility] CPT-58950 Level 4 Est. Patient 14:20:42 OFFICE ADMINISTRATOR Quique Frey MD [facility] CPT-10641 Level 4 Est. Patient 13:56:52 CDT Quique Frey MD [facility] CPT-87979 Level 3 Est. Patient 09:33:16 OFFICE ADMINISTRATOR Quique Frey MD [facility] CPT-89638 Level 3 Est. Patient 10:05:19 OFFICE ADMINISTRATOR Robert kurtz APRN [facility] Procedures Code Procedure Name Date Entry Date Standard Desc ription [id number] (4274F 2P) Patient Reason Influenza immu nization not administered 10:41:29 OFFICE ADMINISTRATOR CPT-58556 Venipuncture Draw Fee 10:11:25 OFFICE ADMINISTRATOR CPT-12208 Chest, 2 views 09:41:42 OFFICE ADMINISTRATOR
--- OUTSIDE RECORDS SUMMARY | 2020-05-01 06:18 | XMS REPORT | Clinical Summary ---
Author Author Admin, Thierry Palumbo Organization [employer] Address Unknown Phone Unavailable Allergies, Adverse Reactions, [...] Sinusitis, acute (sinus infection) ICD-461.9 I nactive Quiqeu Frey MD Pharyngitis, acute / sore throat ICD-462 [place] ctive Quique Frey MD Sinusitis, acute ICD-461.9 Inactive Quique Graff MD Cough ICD-786.2 Inactive Quique Frey MD 2018 Medication List Medication Instructions Start Date Stop Date Generic Name NDC Status Provider Patient Instruction CHANTIX STARTING MONTH SANG 0.5 MG X 11 & 1 MG X 42 ORAL TABL ET 1 po qd VARENICLINE TARTRATE 49306153703 Active Quique Frey MD Active CHANTIX STARTING MONTH SANG 0.5 MG X 11 & 1 MG X 42 ORAL TABL ET As directed. VARENICLINE TARTRATE 27306407717 No Longer Active Mar wayne Frey MD Active HYDROXYZINE HCL 25 MG ORAL TABLET 1 po TID PRN Anxiety HYDROXYZINE HCL 36356020065 No Longer Active Quique Frey MD Ac tive PAROXETINE HCL 20 MG ORAL TABLET 1 po qd PAR OXETINE HCL 25644728281 Active Quique Frey MD Active OXYCODONE-ACETAMINOPHEN 7.5-325 MG ORAL TABLET 1 po TID OXYCODONE-ACETAMINOPHEN 72591422775 No Longer Active Quique Frey MD Active ZYBAN 150 MG ORAL TABLET EXTENDED RELEASE 12 HOUR 1 po qd x 1 week, then 1 po BID BUPROPION HCL (SMOKING DETER) 26457071675 No Lo nger Active Quique Frey MD Active GABAPENTIN 300 MG ORAL CAPSULE 1 po qHS GABAP ENTIN 22287590957 No Longer Active Quique Frey MD Active CEFDINIR 300 MG ORAL CAPSULE 1 po BID x 10 days CEFDINIR 90889023107 No Longer Active Quique Frey MD Active ZYRTEC ALLERGY 10 MG ORAL CAPSULE 1 po qd CE TIRIZINE HCL 59148901012 No Longer Active Quique Frey MD Active FLONASE 50 MCG/ACT NASAL SUSPENSION 1 spray each nostr il twice daily for allergies and runny nose FLUTICASONE PROPIONATE 44121875876 No Longer Active Quique Frey MD Active ZITHROMAX Z-SANG 250 MG ORAL TABLET 2 today, then 1 daily for 4 d ays AZITHROMYCIN 71202503473 No Longer Active Robert Alireza STATOR WINDER Active PREDNISONE 50 MG ORAL TABLET take 50 mg dialy for 6 days PREDNISONE 62549726354 No Longer Active Robert Alireza STATOR WINDER Active (OXYCODONE-ACETAMINOPHEN) (OXYCODONE-AC ETAMINOPHEN) No Longer Active Robert Alireza STATOR WINDER Active FLONASE 50 MCG/ACT NASAL SUSPENSION 1 spray each nostr il twice daily for allergies and runny nose FLONASE 50 MCG/ ACT NASAL SUSPENSION FLUTICASONE PROPIONATE Inactive ZYRTEC ALLERGY 10 MG ORAL CAPSULE 1 po qd ZYRTEC ALLERGY 10 MG ORAL CAPSULE CETIRIZINE HCL Inactive GABAPENTIN 300 MG ORAL CAPSULE 1 po qHS GABAPENTIN 300 MG ORAL CAPSULE 769363 GABAPENTIN Inactive OXYCODONE-ACETAMINOPHEN 7.5-325 MG ORAL TABLET 1 po TID OXYCODONE-ACETAMINOPHEN 7.5-325 MG ORAL TABLET 6348873 OXYCODONE-ALYSA TAMINOPHEN Inactive HYDROXYZINE HCL 25 MG ORAL TABLET 1 po TID PRN Anxiety HYDROXYZINE HCL 25 MG ORAL TABLET 270045 HYDROXYZINE HCL Inacti ve CHANTIX STARTING MONTH SANG 0.5 MG X 11 & 1 MG X 42 ORAL TABL ET As directed. CHANTIX STARTING MONTH SANG 0 .5 MG X 11 & 1 MG X 42 ORAL TABLET VARENICLINE TARTRATE Inactive PREDNISONE 50 MG ORAL TABLET take 50 mg dialy for 6 days PREDNISONE 50 MG ORAL TABLET 265049 PREDNISONE Inactive ZITHROMAX Z-SANG 250 MG ORAL TABLET 2 today, then 1 daily for 4 d ays ZITHROMAX Z-SANG 250 MG ORAL TABLET 512453 AZITHROMYCIN Inactive CEFDINIR 300 MG ORAL CAPSULE 1 po BID x 10 days 02/04 CEFDINIR 300 MG ORAL CAPSULE 707062 CEFDINIR Inactive Vital Signs Date Name Value [...] Description Lab Report: CBC W/DIFF - Hematology hemoglobin, blood 16.5 g/dL 14.0-18.0 hematocrit, blood 48.7 % 40.0-54.0 mean corpuscular volume, RBC 94 fL 80-97 mean corpuscular hemoglobin, RBC 32.0 pg 27. 0-31.2 mean corpuscular hemoglobin concentration, RBC 33.9 G/DL % 31.8-35.4 red blood cell distribution width 10.9 % 11 .6-14.8 platelet count 250 10^3/MM^3 10*3/mm3 186-325 7901/03/01 erythrocyte (RBC) count 5.17 10^6/MM^3 10*6/mm3 4.50-6.5 0 lymphocytes as percent of blood leukocytes 21.3 % 20.5-51.1 monocytes as percent of blood leukocytes 9.6 % 1.7-9.3 neutrophils as percent of blood leukocytes 65.8 % 42.2-75.2 leukocyte count, blood 6.4 10^3/MM^3 10*3/mm3 4.6-10.2 Lab Report: CBC, Comp. Metabolic Panel, Lipid Panel - Chemistry blood glucose 100 mg/dL 65-95 urea nitrogen, blood 16 mg/dL 7-18 creatinine, serum 0.95 mg/dL 0.60-1.30 Estimated Glomerular Filtration Rate (calc) 97 (?) mL/min/1.73m2 = OR > 60 mL/min alanine aminotransferase (SGPT), serum 25 U/L 12-78 aspartate aminotransferase (SGOT), serum 56 U/L 15-37 calcium, serum 9.2 mg/dL 8.5-10.1 bilirubin, serum, total 1.60 mg/dL 0.00-1.00 cholesterol, serum 212 mg/dL 754-301 8661/02/03 triglyceride, serum, fasting 51 mg/dL 30-200 HDL cholesterol, serum 101 mg/dL 32-60 LDL cholesterol, serum 101 mg/dL 0-130 sodium, serum 138 mmol/L 237-049 3651/02/03 carbon dioxide, venous blood 32.8 mmol/L 21.0-32 [...] Report: Comp. Metabolic Panel - Chem istry calcium, serum 8.6 mg/dL 8.5-10.1 bilirubin, serum, total 1.70 mg/dL 0.00-1.00 sodium, serum 138 mmol/L 926-533 3711/03/01 carbon dioxide, venous blood 29.2 mmol/L 21.0-32 .0 potassium, serum 4.5 mmol/L 3.5-5.2 chloride, serum 98 mmol/L 98-107 blood glucose 82 mg/dL 65-95 urea nitrogen, blood 14 mg/dL 7-18 creatinine, serum 0.83 mg/dL 0.60-1.30 Estimated Glomerular Filtration Rate (calc) 115 (?) mL/min/1.73m2 = OR > 60 mL/min alanine aminotransferase (SGPT), serum 32 U/L 12-78 aspartate aminotransferase (SGOT), serum 33 U/L 15-37 Lab Report: Comp. Metabolic Panel - Lab Alkaline phosphatase 62 50-136 Office Visit: chest congestion, headache s 302 - Chemistry HDL cholesterol, serum, target level 40 mg/dL cholesterol, target level 200 mg/dL triglyceride, target level 150 mg/dL Encounters Code Encounter Date Provider Facility CPT-43028 Level 4 Est. 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 Patient 13:56:52 CDT Quique Frey MD [facility] CPT-06048 Level 3 Est. Patient 09:33:16 BAG WORKER Quique Frey MD [facility] CPT-10310 Level 3 Est. Patient 10:05:19 BAG WORKER [facility] Procedures Code Procedure Name Date Entry Date Standard Desc ription CPT-33615 Venipuncture Draw Fee 10:11:25 BAG WORKER CPT-14380 Chest, 2 views 09:41:42 BAG WORKER
--- OUTSIDE RECORDS SUMMARY | 2020-05-01 06:18 | XMS REPORT | Clinical Summary ---
Author Author Admin, Thierry Palumbo Organization [employer] Address Unknown Phone Unavailable Allergies, Adverse Reactions, Alerts Allergy Name Reaction Description Start Date Severity Status Pr ovider SULFA Critical Active Robert Alireza A PRN Conditions or Problems Problem Name Problem Code Onset Date Status Entry Date Provider Comment Standard Description Annotate Sinusitis, acute (sinus infection) 461.9 Resolved 2 Quique rFey MD Acute sinusitis, unspecified Pharyngitis, acute / [...] MD Pharyngitis, acute / sore throat ICD-462 [place] ctive Quique Frey MD Sinusitis, acute ICD-461.9 Inactive Quique Graff MD Cough ICD-786.2 Inactive Quique Frey MD 2018 Medication List Medication Instructions Start Date Stop Date Generic Name NDC Status Provider Patient Instruction CHANTIX STARTING MONTH SANG 0.5 MG X 11 & 1 MG X 42 ORAL TABL ET 1 po qd VARENICLINE TARTRATE 87760102541 Active Quique Frey MD Active CHANTIX STARTING MONTH SANG 0.5 MG X 11 & 1 MG X 42 ORAL TABL ET As directed. VARENICLINE TARTRATE 94595026676 No Longer Active Mar wayne Frey MD Active HYDROXYZINE HCL 25 MG ORAL TABLET 1 po TID PRN Anxiety HYDROXYZINE HCL 55369332630 No Longer Active Quique Frey MD Ac tive PAROXETINE HCL 20 MG ORAL TABLET 1 po qd PAR OXETINE HCL 63088717444 Active Quique Frey MD Active OXYCODONE-ACETAMINOPHEN 7.5-325 MG ORAL TABLET 1 po TID OXYCODONE-ACETAMINOPHEN 86642603850 No Longer Active Quique Frey MD Active ZYBAN 150 MG ORAL TABLET EXTENDED RELEASE 12 HOUR 1 po qd x 1 week, then 1 po BID BUPROPION HCL (SMOKING DETER) 29854713649 No Lo nger Active Quique Frey MD Active GABAPENTIN 300 MG ORAL CAPSULE 1 po qHS GABAP ENTIN 91938977838 No Longer Active Quique Frey MD Active CEFDINIR 300 MG ORAL CAPSULE 1 po BID x 10 days CEFDINIR 86479301988 No Longer Active Quique Frey MD Active ZYRTEC ALLERGY 10 MG ORAL CAPSULE 1 po qd CE TIRIZINE HCL 73188982704 No Longer Active Quique Frey MD Active FLONASE 50 MCG/ACT NASAL SUSPENSION 1 spray each nostr il twice daily for allergies and runny nose FLUTICASONE PROPIONATE 07803998340 No Longer Active Quique Frey MD Active ZITHROMAX Z-SANG 250 MG ORAL TABLET 2 today, then 1 daily for 4 d ays AZITHROMYCIN 52896482170 No Longer Active Robert Alireza SENIOR ENGINEERING SPECIALIST Active PREDNISONE 50 MG ORAL TABLET take 50 mg dialy for 6 days PREDNISONE 24277094585 No Longer Active Robert Alireza SENIOR ENGINEERING SPECIALIST Active (OXYCODONE-ACETAMINOPHEN) (OXYCODONE-AC ETAMINOPHEN) No Longer Active Robert Alireza SENIOR ENGINEERING SPECIALIST Active FLONASE 50 MCG/ACT NASAL SUSPENSION 1 spray each nostr il twice daily for allergies and runny nose FLONASE 50 MCG/ ACT NASAL SUSPENSION FLUTICASONE PROPIONATE Inactive ZYRTEC ALLERGY 10 MG ORAL CAPSULE 1 po qd ZYRTEC ALLERGY 10 MG ORAL CAPSULE CETIRIZINE HCL Inactive GABAPENTIN 300 MG ORAL CAPSULE 1 po qHS GABAPENTIN 300 MG ORAL CAPSULE 067798 GABAPENTIN Inactive OXYCODONE-ACETAMINOPHEN 7.5-325 MG ORAL TABLET 1 po TID OXYCODONE-ACETAMINOPHEN 7.5-325 MG ORAL TABLET 2016678 OXYCODONE-ALYSA TAMINOPHEN Inactive HYDROXYZINE HCL 25 MG ORAL TABLET 1 po TID PRN Anxiety HYDROXYZINE HCL 25 MG ORAL TABLET 698356 HYDROXYZINE HCL Inacti ve CHANTIX STARTING MONTH SANG 0.5 MG X 11 & 1 MG X 42 ORAL TABL ET As directed. CHANTIX STARTING MONTH ASNG 0 .5 MG X 11 & 1 MG X 42 ORAL TABLET VARENICLINE TARTRATE Inactive PREDNISONE 50 MG ORAL TABLET take 50 mg dialy for 6 days PREDNISONE 50 MG ORAL TABLET 934113 PREDNISONE Inactive ZITHROMAX Z-SANG 250 MG ORAL TABLET 2 today, then 1 daily for 4 d ays ZITHROMAX Z-SANG 250 MG ORAL TABLET 357425 AZITHROMYCIN Inactive CEFDINIR 300 MG ORAL CAPSULE 1 po BID x 10 days 02/04 CEFDINIR 300 MG ORAL CAPSULE 164472 CEFDINIR Inactive Vital Signs Date Name Value [...] Panel - Chemistry sodium, serum 138 mmol/L 464-962 7879/02/03 carbon dioxide, venous blood 32.8 mmol/L 21.0-32 [...] 1.60 mg/dL 0.00-1.00 cholesterol, serum 212 mg/dL 717-896 2323/02/03 triglyceride, serum, fasting 51 mg/dL 30-200 HDL [...] - Chem istry sodium, serum 138 mmol/L 109-938 7001/03/01 carbon dioxide, venous blood 29.2 mmol/L 21.0-32 [...] mg/dL Encounters Code Encounter Date Provider Facility CPT-10961 Level 4 Est. 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 Patient 13:56:52 CDT Quique Frey MD [facility] CPT-69108 Level 3 Est. Patient 09:33:16 PRODUCT DEVELOPMENT SPECIALIST Quique Frey MD [facility] CPT-62510 Level 3 Est. Patient 10:05:19 PRODUCT DEVELOPMENT SPECIALIST [facility] Procedures Code Procedure Name Date Entry Date Standard Desc ription CPT-83348 Venipuncture Draw Fee 10:11:25 PRODUCT DEVELOPMENT SPECIALIST CPT-53545 Chest, 2 views 09:41:42 PRODUCT DEVELOPMENT SPECIALIST
--- OUTSIDE RECORDS SUMMARY | 2020-05-01 06:18 | XMS REPORT | Clinical Summary ---
Author Author Admin, Thierry Palumbo Organization [employer] Address Unknown Phone Unavailable Allergies, Adverse Reactions, [...] MD Pharyngitis, acute / sore throat ICD-462 [place] ctive Quique Frey MD Sinusitis, acute ICD-461.9 Inactive Quique Graff MD Cough ICD-786.2 Inactive Quique Frey MD 2018 Medication List Medication Instructions Start Date Stop Date Generic Name NDC Status Provider Patient Instruction CIPRO 500 MG ORAL TABLET 1 tablet two times daily 2019 CIPROFLOXACIN HCL 81540173126 Active Anthony Conway MD Act kd CHANTIX STARTING MONTH SANG 0.5 MG X 11 & 1 MG X 42 ORAL TABL ET 1 po qd VARENICLINE TARTRATE 96558756328 Active Quique Frey MD Active CHANTIX STARTING MONTH SANG 0.5 MG X 11 & 1 MG X 42 ORAL TABL ET As directed. VARENICLINE TARTRATE 50149658037 No Longer Active Cony Frey MD Active HYDROXYZINE HCL 25 MG ORAL TABLET 1 po TID PRN Anxiety HYDROXYZINE HCL 84920471375 No Longer Active Quique Frey MD Ac tive PAROXETINE HCL 20 MG ORAL TABLET 1 po qd PAR OXETINE HCL 35274177073 Active Quique Frey MD Active OXYCODONE-ACETAMINOPHEN 7.5-325 MG ORAL TABLET 1 po TID OXYCODONE-ACETAMINOPHEN 16302350009 No Longer Active Quique Frey MD Active ZYBAN 150 MG ORAL TABLET EXTENDED RELEASE 12 HOUR 1 po qd x 1 week, then 1 po BID BUPROPION HCL (SMOKING DETER) 95046948073 No Lo nger Active Quique Frey MD Active GABAPENTIN 300 MG ORAL CAPSULE 1 po qHS GABAP ENTIN 06859485653 No Longer Active Quique Frey MD Active CEFDINIR 300 MG ORAL CAPSULE 1 po BID x 10 days CEFDINIR 58973251632 No Longer Active Quique Frey MD Active ZYRTEC ALLERGY 10 MG ORAL CAPSULE 1 po qd CE TIRIZINE HCL 89417621352 No Longer Active Quique Frey MD Active FLONASE 50 MCG/ACT NASAL SUSPENSION 1 spray each nostr il twice daily for allergies and runny nose FLUTICASONE PROPIONATE 87903033039 No Longer Active Quique Frey MD Active ZITHROMAX Z-SANG 250 MG ORAL TABLET 2 today, then 1 daily for 4 d ays AZITHROMYCIN 51991983219 No Longer Active Robert Lay APRN Active PREDNISONE 50 MG ORAL TABLET take 50 mg dialy for 6 days PREDNISONE 53501459004 No Longer Active Robert Alireza MOSAIC TILER Active (OXYCODONE-ACETAMINOPHEN) (OXYCODONE-AC ETAMINOPHEN) No Longer Active Robert Alireza MOSAIC TILER Active FLONASE 50 MCG/ACT NASAL SUSPENSION 1 spray each nostr il twice daily for allergies and runny nose FLONASE 50 MCG/ ACT NASAL SUSPENSION FLUTICASONE PROPIONATE Inactive ZYRTEC ALLERGY 10 MG ORAL CAPSULE 1 po qd ZYRTEC ALLERGY 10 MG ORAL CAPSULE CETIRIZINE HCL Inactive GABAPENTIN 300 MG ORAL CAPSULE 1 po qHS GABAPENTIN 300 MG ORAL CAPSULE 310916 GABAPENTIN Inactive OXYCODONE-ACETAMINOPHEN 7.5-325 MG ORAL TABLET 1 po TID OXYCODONE-ACETAMINOPHEN 7.5-325 MG ORAL TABLET 1622603 OXYCODONE-ALYSA TAMINOPHEN Inactive HYDROXYZINE HCL 25 MG ORAL TABLET 1 po TID PRN Anxiety HYDROXYZINE HCL 25 MG ORAL TABLET 092990 HYDROXYZINE HCL Inacti ve CHANTIX STARTING MONTH SANG 0.5 MG X 11 & 1 MG X 42 ORAL TABL ET As directed. CHANTIX STARTING MONTH SANG 0 .5 MG X 11 & 1 MG X 42 ORAL TABLET VARENICLINE TARTRATE Inactive PREDNISONE 50 MG ORAL TABLET take 50 mg dialy for 6 days PREDNISONE 50 MG ORAL TABLET 414759 PREDNISONE Inactive ZITHROMAX Z-SANG 250 MG ORAL TABLET 2 today, then 1 daily for 4 d ays ZITHROMAX Z-SANG 250 MG ORAL TABLET 057728 AZITHROMYCIN Inactive CEFDINIR 300 MG ORAL CAPSULE 1 po BID x 10 days 02/04 CEFDINIR 300 MG ORAL CAPSULE 109806 CEFDINIR Inactive Vital Signs Date Name Value [...] Panel - Chemistry sodium, serum 138 mmol/L 507-101 9383/02/03 carbon dioxide, venous blood 32.8 mmol/L 21.0-32 [...] 1.60 mg/dL 0.00-1.00 cholesterol, serum 212 mg/dL 875-432 1213/02/03 triglyceride, serum, fasting 51 mg/dL 30-200 HDL [...] - Chem istry sodium, serum 138 mmol/L 765-328 8448/03/01 carbon dioxide, venous blood 29.2 mmol/L 21.0-32 [...] mg/dL Encounters Code Encounter Date Provider Facility CPT-78091 Level 3 New Patient 10:41:29 YARN HAULER Anthony aguila MD [facility] CPT-01509 Level 4 Est. Patient 14:20:42 YARN HAULER Quique Frey MD [facility] CPT-50736 Level 4 Est. Patient 13:56:52 CDT Quique Frey MD [facility] CPT-01008 Level 3 Est. Patient 09:33:16 YARN HAULER Quique Frey MD [facility] CPT-00733 Level 3 Est. Patient 10:05:19 YARN HAULER Robert kurtz APRN [facility] Procedures Code Procedure Name Date Entry Date Standard Desc ription [id number] ([id number] 2P) Patient Reason Influenza immu nization not administered 10:41:29 YARN HAULER CPT-82178 Venipuncture Draw Fee 10:11:25 YARN HAULER CPT-20201 Chest, 2 views 09:41:42 YARN HAULER
--- OUTSIDE RECORDS SUMMARY | 2020-05-01 06:19 | XMS REPORT | Clinical Summary ---
Author Author Admin, Thierry CASTRO Organization [facility] Address Unknown Phone Unavailable Allergies, Adverse Reactions, [...] Resolved Quique Frey MD Cough BMI 21-21.9 Active Quique Frey MD Body Mass Index [...] Quique Frey MD Allergic rhinitis, cause unspecified Sinusitis, acute (sinus infection) ICD-461.9 I nactive Quique Frey MD Pharyngitis, acute / sore throat ICD-462 [place] ctive Quique Frey MD Sinusitis, acute ICD-461.9 Inactive Quique Graff MD Cough ICD-786.2 Inactive Quique Frey MD 2018 Medication List Medication Instructions Start Date Stop Date Generic Name NDC Status Provider Patient Instruction HYDROXYZINE HCL 25 MG ORAL TABLET 1 po TID PRN Anxiety HYDROXYZINE HCL 05855253750 Active Quique Frey MD Active PAROXETINE HCL 20 MG ORAL TABLET 1 po qd PAR OXETINE HCL 16178684852 Active Quique Frey MD Active OXYCODONE-ACETAMINOPHEN 7.5-325 MG ORAL TABLET 1 po TID OXYCODONE-ACETAMINOPHEN 56594908077 No Longer Active Quique Frey MD Active CHANTIX STARTING MONTH SANG 0.5 MG X 11 & 1 MG X 42 ORAL TABL ET As directed. VARENICLINE TARTRATE 78714066390 Active Quique Frey MD Active ZYBAN 150 MG ORAL TABLET EXTENDED RELEASE 12 HOUR 1 po qd x 1 week, then 1 po BID BUPROPION HCL (SMOKING DETER) 33598758285 No Lo nger Active Quique Frey MD Active GABAPENTIN 300 MG ORAL CAPSULE 1 po qHS GABAP ENTIN 75011751517 No Longer Active Quique Frey MD Active CEFDINIR 300 MG ORAL CAPSULE 1 po BID x 10 days CEFDINIR 63051391744 No Longer Active Quique Frey MD Active ZYRTEC ALLERGY 10 MG ORAL CAPSULE 1 po qd CE TIRIZINE HCL 92234826010 No Longer Active Quique Frey MD Active FLONASE 50 MCG/ACT NASAL SUSPENSION 1 spray each nostr il twice daily for allergies and runny nose FLUTICASONE PROPIONATE 61891461987 No Longer Active Quique Frey MD Active ZITHROMAX Z-SANG 250 MG ORAL TABLET 2 today, then 1 daily for 4 d ays AZITHROMYCIN 64497659471 No Longer Active Robert Alireza DRYWALL FOREMAN Active PREDNISONE 50 MG ORAL TABLET take 50 mg dialy for 6 days PREDNISONE 65960755700 No Longer Active Robert Alireza DRYWALL FOREMAN Active (OXYCODONE-ACETAMINOPHEN) (OXYCODONE-AC ETAMINOPHEN) No Longer Active Robert Alireza DRYWALL FOREMAN Active FLONASE 50 MCG/ACT NASAL SUSPENSION 1 spray each nostr il twice daily for allergies and runny nose FLONASE 50 MCG/ ACT NASAL SUSPENSION FLUTICASONE PROPIONATE Inactive ZYRTEC ALLERGY 10 MG ORAL CAPSULE 1 po qd ZYRTEC ALLERGY 10 MG ORAL CAPSULE CETIRIZINE HCL Inactive GABAPENTIN 300 MG ORAL CAPSULE 1 po qHS GABAPENTIN 300 MG ORAL CAPSULE 769672 GABAPENTIN Inactive OXYCODONE-ACETAMINOPHEN 7.5-325 MG ORAL TABLET 1 po TID OXYCODONE-ACETAMINOPHEN 7.5-325 MG ORAL TABLET 6616056 OXYCODONE-ALYSA TAMINOPHEN Inactive PREDNISONE 50 MG ORAL TABLET take 50 mg dialy for 6 days PREDNISONE 50 MG ORAL TABLET 059925 PREDNISONE Inactive ZITHROMAX Z-SANG 250 MG ORAL TABLET 2 today, then 1 daily for 4 d ays ZITHROMAX Z-SANG 250 MG ORAL TABLET 537344 AZITHROMYCIN Inactive CEFDINIR 300 MG ORAL CAPSULE 1 po BID x 10 days 02/04 CEFDINIR 300 MG ORAL CAPSULE 141640 CEFDINIR Inactive Vital Signs Date Name Value Unit Range Description blood pressure, diastolic, repeated by physician 67 [...] count 250 10^3/MM^3 10*3/mm3 142-424 Lab Report: Comp. Metabolic Panel - Chem istry sodium, serum 138 mmol/L 963-357 4045/03/01 carbon dioxide, venous blood 29.2 mmol/L 21.0-32 [...] mg/dL Encounters Code Encounter Date Provider Facility CPT-25061 Level 4 Est. Patient 13:56:52 CDT Quique Frey MD [facility] CPT-68721 Level 3 Est. 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 Patient 10:05:19 HYDRAULIC PRESS SERVICER Robert kurtz APRN [facility] Procedures Code Procedure Name Date Entry Date Standard Desc ription CPT-59615 Chest, 2 views 09:41:42 HYDRAULIC PRESS SERVICER
--- OUTSIDE RECORDS SUMMARY | 2020-05-01 06:19 | XMS REPORT | Clinical Summary ---
Author Author Admin, Thierry Palumbo Organization [employer] Address Unknown Phone Unavailable Allergies, Adverse [...] MD Pharyngitis, acute / sore throat ICD-462 [place] ctive Quique Frey MD Sinusitis, acute ICD-461.9 Inactive Quique rGaff MD Cough ICD-786.2 Inactive Quique Frey MD 2018 Medication List Medication Instructions Start Date Stop Date Generic Name NDC Status Provider Patient Instruction CHANTIX STARTING MONTH SANG 0.5 MG X 11 & 1 MG X 42 ORAL TABL ET 1 po qd VARENICLINE TARTRATE 44114642766 Active Quique Frey MD Active CHANTIX STARTING MONTH SANG 0.5 MG X 11 & 1 MG X 42 ORAL TABL ET As directed. VARENICLINE TARTRATE 75512534135 No Longer Active Mar wayne Frey MD Active HYDROXYZINE HCL 25 MG ORAL TABLET 1 po TID PRN Anxiety HYDROXYZINE HCL 73197345436 No Longer Active Quique Frey MD Ac tive PAROXETINE HCL 20 MG ORAL TABLET 1 po qd PAR OXETINE HCL 90112717452 Active Quique Frey MD Active OXYCODONE-ACETAMINOPHEN 7.5-325 MG ORAL TABLET 1 po TID OXYCODONE-ACETAMINOPHEN 29261744009 No Longer Active Quique Frey MD Active ZYBAN 150 MG ORAL TABLET EXTENDED RELEASE 12 HOUR 1 po qd x 1 week, then 1 po BID BUPROPION HCL (SMOKING DETER) 41214460157 No Lo nger Active Quique Frey MD Active GABAPENTIN 300 MG ORAL CAPSULE 1 po qHS GABAP ENTIN 83109227121 No Longer Active Quique Frey MD Active CEFDINIR 300 MG ORAL CAPSULE 1 po BID x 10 days CEFDINIR 00490406763 No Longer Active Quique Frey MD Active ZYRTEC ALLERGY 10 MG ORAL CAPSULE 1 po qd CE TIRIZINE HCL 73454023635 No Longer Active Quique Frey MD Active FLONASE 50 MCG/ACT NASAL SUSPENSION 1 spray each nostr il twice daily for allergies and runny nose FLUTICASONE PROPIONATE 34325488235 No Longer Active Quique Frey MD Active ZITHROMAX Z-SANG 250 MG ORAL TABLET 2 today, then 1 daily for 4 d ays AZITHROMYCIN 57284917119 No Longer Active Robert Alireza DOOR CLAMPER Active PREDNISONE 50 MG ORAL TABLET take 50 mg dialy for 6 days PREDNISONE 29769288551 No Longer Active Robert Alireza DOOR CLAMPER Active (OXYCODONE-ACETAMINOPHEN) (OXYCODONE-AC ETAMINOPHEN) No Longer Active Robert Alireza DOOR CLAMPER Active FLONASE 50 MCG/ACT NASAL SUSPENSION 1 spray each nostr il twice daily for allergies and runny nose FLONASE 50 MCG/ ACT NASAL SUSPENSION FLUTICASONE PROPIONATE Inactive ZYRTEC ALLERGY 10 MG ORAL CAPSULE 1 po qd ZYRTEC ALLERGY 10 MG ORAL CAPSULE CETIRIZINE HCL Inactive GABAPENTIN 300 MG ORAL CAPSULE 1 po qHS GABAPENTIN 300 MG ORAL CAPSULE 232531 GABAPENTIN Inactive OXYCODONE-ACETAMINOPHEN 7.5-325 MG ORAL TABLET 1 po TID OXYCODONE-ACETAMINOPHEN 7.5-325 MG ORAL TABLET 1570142 OXYCODONE-ALYSA TAMINOPHEN Inactive HYDROXYZINE HCL 25 MG ORAL TABLET 1 po TID PRN Anxiety HYDROXYZINE HCL 25 MG ORAL TABLET 274267 HYDROXYZINE HCL Inacti ve CHANTIX STARTING MONTH SANG 0.5 MG X 11 & 1 MG X 42 ORAL TABL ET As directed. CHANTIX STARTING MONTH SANG 0 .5 MG X 11 & 1 MG X 42 ORAL TABLET VARENICLINE TARTRATE Inactive PREDNISONE 50 MG ORAL TABLET take 50 mg dialy for 6 days PREDNISONE 50 MG ORAL TABLET 709954 PREDNISONE Inactive ZITHROMAX Z-SANG 250 MG ORAL TABLET 2 today, then 1 daily for 4 d ays ZITHROMAX Z-SANG 250 MG ORAL TABLET 647875 AZITHROMYCIN Inactive CEFDINIR 300 MG ORAL CAPSULE 1 po BID x 10 days 02/04 CEFDINIR 300 MG ORAL CAPSULE 711826 CEFDINIR Inactive Vital Signs Date Name Value [...] - Chem istry sodium, serum 138 mmol/L 137-468 4025/03/01 carbon dioxide, venous blood 29.2 mmol/L 21.0-32 [...] mg/dL Encounters Code Encounter Date Provider Facility CPT-93661 Level 4 Est. 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 Patient 13:56:52 CDT Quique Frey MD [facility] CPT-66982 Level 3 Est. Patient 09:33:16 CONCRETE TILE MACHINE OPERATOR Quique Frey MD [facility] CPT-81154 Level 3 Est. Patient 10:05:19 CONCRETE TILE MACHINE OPERATOR Robert kurtz APRN [facility] Procedures Code Procedure Name Date Entry Date Standard Desc ription CPT-68935 Chest, 2 views 09:41:42 CONCRETE TILE MACHINE OPERATOR
--- OUTSIDE RECORDS SUMMARY | 2020-05-01 06:19 | XMS REPORT | Clinical Summary ---
Author Author Admin, Thierry Palumbo Organization [employer] Address Unknown Phone Unavailable Allergies, Adverse Reactions, [...] MD Pharyngitis, acute / sore throat ICD-462 [place] ctive Quique Frey MD Sinusitis, acute ICD-461.9 Inactive Quique Graff MD Cough ICD-786.2 Inactive Quique Frey MD 2018 Medication List Medication Instructions Start Date Stop Date Generic Name NDC Status Provider Patient Instruction CHANTIX STARTING MONTH SANG 0.5 MG X 11 & 1 MG X 42 ORAL TABL ET 1 po qd VARENICLINE TARTRATE 30814900990 Active Quique Frey MD Active CHANTIX STARTING MONTH SANG 0.5 MG X 11 & 1 MG X 42 ORAL TABL ET As directed. VARENICLINE TARTRATE 48340257024 No Longer Active Mar wayne Frey MD Active HYDROXYZINE HCL 25 MG ORAL TABLET 1 po TID PRN Anxiety HYDROXYZINE HCL 81706374181 No Longer Active Quique Frey MD Ac tive PAROXETINE HCL 20 MG ORAL TABLET 1 po qd PAR OXETINE HCL 68409984792 Active Quique Frey MD Active OXYCODONE-ACETAMINOPHEN 7.5-325 MG ORAL TABLET 1 po TID OXYCODONE-ACETAMINOPHEN 57763414596 No Longer Active Quique Frey MD Active ZYBAN 150 MG ORAL TABLET EXTENDED RELEASE 12 HOUR 1 po qd x 1 week, then 1 po BID BUPROPION HCL (SMOKING DETER) 73790520428 No Lo nger Active Quique Frey MD Active GABAPENTIN 300 MG ORAL CAPSULE 1 po qHS GABAP ENTIN 62702868474 No Longer Active Quique Frey MD Active CEFDINIR 300 MG ORAL CAPSULE 1 po BID x 10 days CEFDINIR 11150249321 No Longer Active Quique Frey MD Active ZYRTEC ALLERGY 10 MG ORAL CAPSULE 1 po qd CE TIRIZINE HCL 49887726245 No Longer Active Quique Frey MD Active FLONASE 50 MCG/ACT NASAL SUSPENSION 1 spray each nostr il twice daily for allergies and runny nose FLUTICASONE PROPIONATE 03945978184 No Longer Active Quique Frey MD Active ZITHROMAX Z-SANG 250 MG ORAL TABLET 2 today, then 1 daily for 4 d ays AZITHROMYCIN 92518134659 No Longer Active Robert Alireza VIROLOGIST Active PREDNISONE 50 MG ORAL TABLET take 50 mg dialy for 6 days PREDNISONE 03000246223 No Longer Active Robert Alireza VIROLOGIST Active (OXYCODONE-ACETAMINOPHEN) (OXYCODONE-AC ETAMINOPHEN) No Longer Active Robert Alireza VIROLOGIST Active FLONASE 50 MCG/ACT NASAL SUSPENSION 1 spray each nostr il twice daily for allergies and runny nose FLONASE 50 MCG/ ACT NASAL SUSPENSION FLUTICASONE PROPIONATE Inactive ZYRTEC ALLERGY 10 MG ORAL CAPSULE 1 po qd ZYRTEC ALLERGY 10 MG ORAL CAPSULE CETIRIZINE HCL Inactive GABAPENTIN 300 MG ORAL CAPSULE 1 po qHS GABAPENTIN 300 MG ORAL CAPSULE 543609 GABAPENTIN Inactive OXYCODONE-ACETAMINOPHEN 7.5-325 MG ORAL TABLET 1 po TID OXYCODONE-ACETAMINOPHEN 7.5-325 MG ORAL TABLET 1179418 OXYCODONE-ALYSA TAMINOPHEN Inactive HYDROXYZINE HCL 25 MG ORAL TABLET 1 po TID PRN Anxiety HYDROXYZINE HCL 25 MG ORAL TABLET 482053 HYDROXYZINE HCL Inacti ve CHANTIX STARTING MONTH SANG 0.5 MG X 11 & 1 MG X 42 ORAL TABL ET As directed. CHANTIX STARTING MONTH SANG 0 .5 MG X 11 & 1 MG X 42 ORAL TABLET VARENICLINE TARTRATE Inactive PREDNISONE 50 MG ORAL TABLET take 50 mg dialy for 6 days PREDNISONE 50 MG ORAL TABLET 076941 PREDNISONE Inactive ZITHROMAX Z-SANG 250 MG ORAL TABLET 2 today, then 1 daily for 4 d ays ZITHROMAX Z-SANG 250 MG ORAL TABLET 951624 AZITHROMYCIN Inactive CEFDINIR 300 MG ORAL CAPSULE 1 po BID x 10 days 02/04 CEFDINIR 300 MG ORAL CAPSULE 976093 CEFDINIR Inactive Vital Signs Date Name Value [...] - Chem istry sodium, serum 138 mmol/L 164-845 9268/03/01 carbon dioxide, venous blood 29.2 mmol/L 21.0-32 [...] mg/dL Encounters Code Encounter Date Provider Facility CPT-08019 Level 4 Est. Patient 14:20:42 PAINT AND TABLE EDGER Quique Frey MD [facility] CPT-15159 Level 4 Est. Patient 13:56:52 CDT Quique Frey MD [facility] CPT-61319 Level 3 Est. Patient 09:33:16 PAINT AND TABLE EDGER Quique Frey MD [facility] CPT-28083 Level 3 Est. Patient 10:05:19 PAINT AND TABLE EDGER Robert kurtz APRN [facility] Procedures Code Procedure Name Date Entry Date Standard Desc ription CPT-73297 Chest, 2 views 09:41:42 PAINT AND TABLE EDGER
--- OUTSIDE RECORDS SUMMARY | 2020-05-01 06:19 | XMS REPORT | Clinical Summary ---
Author Author Admin, Thierry Palumbo Organization [employer] Address Unknown Phone Unavailable Allergies, Adverse Reactions, [...] MD Pharyngitis, acute / sore throat ICD-462 [place] ctive Quique Frey MD Sinusitis, acute ICD-461.9 Inactive Quique Graff MD Cough ICD-786.2 Inactive Quique Frey MD 2018 Medication List Medication Instructions Start Date Stop Date Generic Name NDC Status Provider Patient Instruction CHANTIX STARTING MONTH SANG 0.5 MG X 11 & 1 MG X 42 ORAL TABL ET 1 po qd VARENICLINE TARTRATE 82476501962 Active Quique Frey MD Active CHANTIX STARTING MONTH SANG 0.5 MG X 11 & 1 MG X 42 ORAL TABL ET As directed. VARENICLINE TARTRATE 22770519350 No Longer Active Mar wayne Frey MD Active HYDROXYZINE HCL 25 MG ORAL TABLET 1 po TID PRN Anxiety HYDROXYZINE HCL 58995739043 No Longer Active Quique Frey MD Ac tive PAROXETINE HCL 20 MG ORAL TABLET 1 po qd PAR OXETINE HCL 66915664565 Active Quique Frey MD Active OXYCODONE-ACETAMINOPHEN 7.5-325 MG ORAL TABLET 1 po TID OXYCODONE-ACETAMINOPHEN 47661128400 No Longer Active Quique Frey MD Active ZYBAN 150 MG ORAL TABLET EXTENDED RELEASE 12 HOUR 1 po qd x 1 week, then 1 po BID BUPROPION HCL (SMOKING DETER) 38941638587 No Lo nger Active Quique Frey MD Active GABAPENTIN 300 MG ORAL CAPSULE 1 po qHS GABAP ENTIN 16706761164 No Longer Active Quique Frey MD Active CEFDINIR 300 MG ORAL CAPSULE 1 po BID x 10 days CEFDINIR 59648061914 No Longer Active Quique Frey MD Active ZYRTEC ALLERGY 10 MG ORAL CAPSULE 1 po qd CE TIRIZINE HCL 38248720483 No Longer Active Quique Frey MD Active FLONASE 50 MCG/ACT NASAL SUSPENSION 1 spray each nostr il twice daily for allergies and runny nose FLUTICASONE PROPIONATE 96940309708 No Longer Active Quique Frey MD Active ZITHROMAX Z-SANG 250 MG ORAL TABLET 2 today, then 1 daily for 4 d ays AZITHROMYCIN 52315307537 No Longer Active Robert Alireza STREETCAR STARTER Active PREDNISONE 50 MG ORAL TABLET take 50 mg dialy for 6 days PREDNISONE 66713713011 No Longer Active Robert Alireza STREETCAR STARTER Active (OXYCODONE-ACETAMINOPHEN) (OXYCODONE-AC ETAMINOPHEN) No Longer Active Robert Alireza STREETCAR STARTER Active FLONASE 50 MCG/ACT NASAL SUSPENSION 1 spray each nostr il twice daily for allergies and runny nose FLONASE 50 MCG/ ACT NASAL SUSPENSION FLUTICASONE PROPIONATE Inactive ZYRTEC ALLERGY 10 MG ORAL CAPSULE 1 po qd ZYRTEC ALLERGY 10 MG ORAL CAPSULE CETIRIZINE HCL Inactive GABAPENTIN 300 MG ORAL CAPSULE 1 po qHS GABAPENTIN 300 MG ORAL CAPSULE 844695 GABAPENTIN Inactive OXYCODONE-ACETAMINOPHEN 7.5-325 MG ORAL TABLET 1 po TID OXYCODONE-ACETAMINOPHEN 7.5-325 MG ORAL TABLET 4631720 OXYCODONE-ALYSA TAMINOPHEN Inactive HYDROXYZINE HCL 25 MG ORAL TABLET 1 po TID PRN Anxiety HYDROXYZINE HCL 25 MG ORAL TABLET 399395 HYDROXYZINE HCL Inacti ve CHANTIX STARTING MONTH SANG 0.5 MG X 11 & 1 MG X 42 ORAL TABL ET As directed. CHANTIX STARTING MONTH SANG 0 .5 MG X 11 & 1 MG X 42 ORAL TABLET VARENICLINE TARTRATE Inactive PREDNISONE 50 MG ORAL TABLET take 50 mg dialy for 6 days PREDNISONE 50 MG ORAL TABLET 078711 PREDNISONE Inactive ZITHROMAX Z-SANG 250 MG ORAL TABLET 2 today, then 1 daily for 4 d ays ZITHROMAX Z-SANG 250 MG ORAL TABLET 427444 AZITHROMYCIN Inactive CEFDINIR 300 MG ORAL CAPSULE 1 po BID x 10 days 02/04 CEFDINIR 300 MG ORAL CAPSULE 592745 CEFDINIR Inactive Vital Signs Date Name Value [...] - Chem istry sodium, serum 138 mmol/L 755-549 7997/03/01 carbon dioxide, venous blood 29.2 mmol/L 21.0-32 [...] mg/dL Encounters Code Encounter Date Provider Facility CPT-02128 Level 4 Est. Patient 14:20:42 NURSING ASSOCIATE Quique Frey MD [facility] CPT-07228 Level 4 Est. Patient 13:56:52 CDT Quique Frey MD [facility] CPT-85693 Level 3 Est. Patient 09:33:16 NURSING ASSOCIATE Quique Frey MD [facility] CPT-10236 Level 3 Est. Patient 10:05:19 NURSING ASSOCIATE Robert kurtz APRN [facility] Procedures Code Procedure Name Date Entry Date Standard Desc ription CPT-22271 Chest, 2 views 09:41:42 NURSING ASSOCIATE
--- OUTSIDE RECORDS SUMMARY | 2020-05-01 06:19 | XMS REPORT | Clinical Summary ---
Author Author Admin, Thierry CASTRO Organization [employer] [facility] Address Unknown Phone Unavailable Allergies, [...] 1 po TID PRN Anxiety HYDROXYZINE HCL 88943831420 Active Quique Frey MD Active PAROXETINE HCL 20 MG ORAL TABLET 1 po qd PAR OXETINE HCL 07872134835 Active Quique Frey MD Active OXYCODONE-ACETAMINOPHEN 7.5-325 MG ORAL TABLET 1 po TID OXYCODONE-ACETAMINOPHEN 45071124697 No Longer Active Quique Frey MD Active CHANTIX STARTING MONTH SANG 0.5 MG X 11 & 1 MG X 42 ORAL TABL ET As directed. VARENICLINE TARTRATE 43041111616 Active Quique Frey MD Active ZYBAN 150 MG ORAL TABLET EXTENDED RELEASE 12 HOUR 1 po qd x 1 week, then 1 po BID BUPROPION HCL (SMOKING DETER) 00952163828 No Lo nger Active Quique Frey MD Active GABAPENTIN 300 MG ORAL CAPSULE 1 po qHS GABAP ENTIN 51630394332 No Longer Active Quique Frey MD Active CEFDINIR 300 MG ORAL CAPSULE 1 po BID x 10 days CEFDINIR 70805130025 No Longer Active Quique Frey MD Active ZYRTEC ALLERGY 10 MG ORAL CAPSULE 1 po qd CE TIRIZINE HCL 37219967394 No Longer Active Quique Frey MD Active FLONASE 50 MCG/ACT NASAL SUSPENSION 1 spray each nostr il twice daily for allergies and runny nose FLUTICASONE PROPIONATE 92713210945 No Longer Active Quique Frey MD Active ZITHROMAX Z-SANG 250 MG ORAL TABLET 2 today, then 1 daily for 4 d ays AZITHROMYCIN 53924271179 No Longer Active Robert Alireza BELT LACER Active PREDNISONE 50 MG ORAL TABLET take 50 mg dialy for 6 days PREDNISONE 96330729257 No Longer Active Robert Alireza BELT LACER Active (OXYCODONE-ACETAMINOPHEN) (OXYCODONE-AC ETAMINOPHEN) No Longer Active Robert Alireza BELT LACER Active FLONASE 50 MCG/ACT NASAL SUSPENSION 1 spray each nostr il twice daily for allergies and runny nose FLONASE 50 MCG/ ACT NASAL SUSPENSION FLUTICASONE PROPIONATE Inactive ZYRTEC ALLERGY 10 MG ORAL CAPSULE 1 po qd ZYRTEC ALLERGY 10 MG ORAL CAPSULE CETIRIZINE HCL Inactive GABAPENTIN 300 MG ORAL CAPSULE 1 po qHS GABAPENTIN 300 MG ORAL CAPSULE 539800 GABAPENTIN Inactive OXYCODONE-ACETAMINOPHEN 7.5-325 MG ORAL TABLET 1 po TID OXYCODONE-ACETAMINOPHEN 7.5-325 MG ORAL TABLET 0623923 OXYCODONE-ALYSA TAMINOPHEN Inactive PREDNISONE 50 MG ORAL TABLET take 50 mg dialy for 6 days PREDNISONE 50 MG ORAL TABLET 711387 PREDNISONE Inactive ZITHROMAX Z-SANG 250 MG ORAL TABLET 2 today, then 1 daily for 4 d ays ZITHROMAX Z-SANG 250 MG ORAL TABLET 834608 AZITHROMYCIN Inactive CEFDINIR 300 MG ORAL CAPSULE 1 po BID x 10 days 02/04 CEFDINIR 300 MG ORAL CAPSULE 860002 CEFDINIR Inactive Vital Signs Date Name Value [...] - Chem istry sodium, serum 138 mmol/L 854-279 1103/03/01 carbon dioxide, venous blood 29.2 mmol/L 21.0-32 [...] mg/dL Encounters Code Encounter Date Provider Facility CPT-24083 Level 4 Est. Patient 13:56:52 CDT Quique Frey MD [facility] CPT-18500 Level 3 Est. Patient 09:33:16 MED SPEC Quique Frey MD [facility] CPT-15298 Level 3 Est. Patient 10:05:19 MED SPEC Robert kurtz APRN [facility] Procedures Code Procedure Name Date Entry Date Standard Desc ription CPT-81121 Chest, 2 views 09:41:42 MED SPEC
--- OUTSIDE RECORDS SUMMARY | 2020-05-01 06:19 | XMS REPORT | Clinical Summary ---
Author Author Admin, Thierry Palumbo Organization [employer] Address Unknown Phone Unavailable Allergies, Adverse Reactions, [...] MD Pharyngitis, acute / sore throat ICD-462 [place] ctive Quique Frey MD Sinusitis, acute ICD-461.9 Inactive Quique Graff MD Cough ICD-786.2 Inactive Quique Frey MD 2018 Medication List Medication Instructions Start Date Stop Date Generic Name NDC Status Provider Patient Instruction CHANTIX STARTING MONTH SANG 0.5 MG X 11 & 1 MG X 42 ORAL TABL ET 1 po qd VARENICLINE TARTRATE 48093903790 Active Quique Frey MD Active CHANTIX STARTING MONTH SANG 0.5 MG X 11 & 1 MG X 42 ORAL TABL ET As directed. VARENICLINE TARTRATE 29373233256 No Longer Active Mar wayne Frey MD Active HYDROXYZINE HCL 25 MG ORAL TABLET 1 po TID PRN Anxiety HYDROXYZINE HCL 19844775922 No Longer Active Quique Frey MD Ac tive PAROXETINE HCL 20 MG ORAL TABLET 1 po qd PAR OXETINE HCL 64078590529 Active Quique Frey MD Active OXYCODONE-ACETAMINOPHEN 7.5-325 MG ORAL TABLET 1 po TID OXYCODONE-ACETAMINOPHEN 50304145177 No Longer Active Quique Frey MD Active ZYBAN 150 MG ORAL TABLET EXTENDED RELEASE 12 HOUR 1 po qd x 1 week, then 1 po BID BUPROPION HCL (SMOKING DETER) 04470509242 No Lo nger Active Quique Frey MD Active GABAPENTIN 300 MG ORAL CAPSULE 1 po qHS GABAP ENTIN 29078056983 No Longer Active Quique Frey MD Active CEFDINIR 300 MG ORAL CAPSULE 1 po BID x 10 days CEFDINIR 44407174498 No Longer Active Quique Frey MD Active ZYRTEC ALLERGY 10 MG ORAL CAPSULE 1 po qd CE TIRIZINE HCL 01557182192 No Longer Active Quique Frey MD Active FLONASE 50 MCG/ACT NASAL SUSPENSION 1 spray each nostr il twice daily for allergies and runny nose FLUTICASONE PROPIONATE 54431479889 No Longer Active Quique Frey MD Active ZITHROMAX Z-SANG 250 MG ORAL TABLET 2 today, then 1 daily for 4 d ays AZITHROMYCIN 81688566447 No Longer Active Robert Alireza FOOD AND BEVERAGE OUTLETS MANAGER Active PREDNISONE 50 MG ORAL TABLET take 50 mg dialy for 6 days PREDNISONE 14354452900 No Longer Active Robert Alireza FOOD AND BEVERAGE OUTLETS MANAGER Active (OXYCODONE-ACETAMINOPHEN) (OXYCODONE-AC ETAMINOPHEN) No Longer Active Robert Alireza FOOD AND BEVERAGE OUTLETS MANAGER Active HYDROXYZINE HCL 25 MG ORAL TABLET 1 po TID PRN Anxiety HYDROXYZINE HCL 25 MG ORAL TABLET 421106 HYDROXYZINE HCL Inacti ve PREDNISONE 50 MG ORAL TABLET take 50 mg dialy for 6 days PREDNISONE 50 MG ORAL TABLET 650564 PREDNISONE Inactive GABAPENTIN 300 MG ORAL CAPSULE 1 po qHS GABAPENTIN 300 MG ORAL CAPSULE 563812 GABAPENTIN Inactive CEFDINIR 300 MG ORAL CAPSULE 1 po BID x 10 days 02/04 CEFDINIR 300 MG ORAL CAPSULE 279554 CEFDINIR Inactive ZITHROMAX Z-SANG 250 MG ORAL TABLET 2 today, then 1 daily for 4 d ays ZITHROMAX Z-SANG 250 MG ORAL TABLET 699936 AZITHROMYCIN Inactive FLONASE 50 MCG/ACT NASAL SUSPENSION 1 spray each nostr il twice daily for allergies and runny nose FLONASE 50 MCG/ ACT NASAL SUSPENSION FLUTICASONE PROPIONATE Inactive OXYCODONE-ACETAMINOPHEN 7.5-325 MG ORAL TABLET 1 po TID OXYCODONE-ACETAMINOPHEN 7.5-325 MG ORAL TABLET 0879638 OXYCODONE-ALYSA TAMINOPHEN Inactive CHANTIX STARTING MONTH SANG 0.5 [...] - Chem istry sodium, serum 138 mmol/L 402-645 8746/03/01 carbon dioxide, venous blood 29.2 mmol/L 21.0-32 [...] mg/dL Encounters Code Encounter Date Provider Facility CPT-53001 Level 4 Est. Patient 14:20:42 MANAGER SPECIALTY Quique Frey MD [facility] CPT-11465 Level 4 Est. Patient 13:56:52 CDT Quique Frey MD [facility] CPT-43265 Level 3 Est. Patient 09:33:16 MANAGER SPECIALTY Quique Frey MD [facility] CPT-47731 Level 3 Est. Patient 10:05:19 MANAGER SPECIALTY Robert kurtz APRN [facility] Procedures Code Procedure Name Date Entry Date Standard Desc ription CPT-36662 Chest, 2 views 09:41:42 MANAGER SPECIALTY
--- OUTSIDE RECORDS SUMMARY | 2020-05-01 06:19 | XMS REPORT | Clinical Summary ---
Author Author Admin, Thierry Palumbo Organization [employer] Address Unknown Phone Unavailable Allergies, Adverse [...] MD Pharyngitis, acute / sore throat ICD-462 [place] [address]ive Quique Frey MD Sinusitis, acute ICD-461.9 Inactive Quique Graff MD Cough ICD-786.2 Inactive Quique Frey MD 2018 Medication List Medication Instructions Start Date Stop Date Generic Name NDC Status Provider Patient Instruction CHANTIX STARTING MONTH SANG 0.5 MG X 11 & 1 MG X 42 ORAL TABL ET 1 po qd VARENICLINE TARTRATE 57540071891 Active Quique Frey MD Active CHANTIX STARTING MONTH SANG 0.5 MG X 11 & 1 MG X 42 ORAL TABL ET As directed. VARENICLINE TARTRATE 96338011103 No Longer Active Mar wayne Frey MD Active HYDROXYZINE HCL 25 MG ORAL TABLET 1 po TID PRN Anxiety HYDROXYZINE HCL 42807505824 No Longer Active Quique Frey MD Ac tive PAROXETINE HCL 20 MG ORAL TABLET 1 po qd PAR OXETINE HCL 13802184726 Active Quique Frey MD Active OXYCODONE-ACETAMINOPHEN 7.5-325 MG ORAL TABLET 1 po TID OXYCODONE-ACETAMINOPHEN 24023118454 No Longer Active Quique Frey MD Active ZYBAN 150 MG ORAL TABLET EXTENDED RELEASE 12 HOUR 1 po qd x 1 week, then 1 po BID BUPROPION HCL (SMOKING DETER) 00013201030 No Lo nger Active Quique Frey MD Active GABAPENTIN 300 MG ORAL CAPSULE 1 po qHS GABAP ENTIN 81101513883 No Longer Active Quique Frey MD Active CEFDINIR 300 MG ORAL CAPSULE 1 po BID x 10 days CEFDINIR 89368298847 No Longer Active Quique Frey MD Active ZYRTEC ALLERGY 10 MG ORAL CAPSULE 1 po qd CE TIRIZINE HCL 10569359547 No Longer Active Quique Frey MD Active FLONASE 50 MCG/ACT NASAL SUSPENSION 1 spray each nostr il twice daily for allergies and runny nose FLUTICASONE PROPIONATE 19691996673 No Longer Active Quique Frey MD Active ZITHROMAX Z-SANG 250 MG ORAL TABLET 2 today, then 1 daily for 4 d ays AZITHROMYCIN 89636203644 No Longer Active Robert Alireza DOCK OPERATOR Active PREDNISONE 50 MG ORAL TABLET take 50 mg dialy for 6 days PREDNISONE 53342884887 No Longer Active Robert Alireza DOCK OPERATOR Active (OXYCODONE-ACETAMINOPHEN) (OXYCODONE-AC ETAMINOPHEN) No Longer Active Robert Alireza DOCK OPERATOR Active FLONASE 50 MCG/ACT NASAL SUSPENSION 1 spray each nostr il twice daily for allergies and runny nose FLONASE 50 MCG/ ACT NASAL SUSPENSION FLUTICASONE PROPIONATE Inactive ZYRTEC ALLERGY 10 MG ORAL CAPSULE 1 po qd ZYRTEC ALLERGY 10 MG ORAL CAPSULE CETIRIZINE HCL Inactive GABAPENTIN 300 MG ORAL CAPSULE 1 po qHS GABAPENTIN 300 MG ORAL CAPSULE 825655 GABAPENTIN Inactive OXYCODONE-ACETAMINOPHEN 7.5-325 MG ORAL TABLET 1 po TID OXYCODONE-ACETAMINOPHEN 7.5-325 MG ORAL TABLET 0434745 OXYCODONE-ALYSA TAMINOPHEN Inactive HYDROXYZINE HCL 25 MG ORAL TABLET 1 po TID PRN Anxiety HYDROXYZINE HCL 25 MG ORAL TABLET 410496 HYDROXYZINE HCL Inacti ve CHANTIX STARTING MONTH SANG 0.5 MG X 11 & 1 MG X 42 ORAL TABL ET As directed. CHANTIX STARTING MONTH SANG 0 .5 MG X 11 & 1 MG X 42 ORAL TABLET VARENICLINE TARTRATE Inactive PREDNISONE 50 MG ORAL TABLET take 50 mg dialy for 6 days PREDNISONE 50 MG ORAL TABLET 521193 PREDNISONE Inactive ZITHROMAX Z-SANG 250 MG ORAL TABLET 2 today, then 1 daily for 4 d ays ZITHROMAX Z-SANG 250 MG ORAL TABLET 126068 AZITHROMYCIN Inactive CEFDINIR 300 MG ORAL CAPSULE 1 po BID x 10 days 02/04 CEFDINIR 300 MG ORAL CAPSULE 830014 CEFDINIR Inactive Vital Signs Date Name Value [...] - Chem istry sodium, serum 138 mmol/L 103-188 0149/03/01 carbon dioxide, venous blood 29.2 mmol/L 21.0-32 [...] mg/dL Encounters Code Encounter Date Provider Facility CPT-72990 Level 4 Est. Patient 14:20:42 CAPTION WRITER Quique Frey MD [facility] CPT-67274 Level 4 Est. Patient 13:56:52 CDT Quique Frey MD [facility] CPT-17811 Level 3 Est. Patient 09:33:16 CAPTION WRITER Quique Frey MD [facility] CPT-73478 Level 3 Est. Patient 10:05:19 CAPTION WRITER Robert kurtz APRN [facility] Procedures Code Procedure Name Date Entry Date Standard Desc ription CPT-76860 Venipuncture Draw Fee 10:11:25 CAPTION WRITER CPT-07195 Chest, 2 views 09:41:42 CAPTION WRITER
--- OUTSIDE RECORDS SUMMARY | 2020-05-01 06:20 | XMS REPORT | Clinical Summary ---
Author Author Admin, Thierry CASTRO Organization [employer] [facility] Address Unknown Phone Unavailable Allergies, Adverse Reactions, [...] 1 po TID PRN Anxiety HYDROXYZINE HCL 62676821978 Active Quique Frey MD Active PAROXETINE HCL 20 MG ORAL TABLET 1 po qd PAR OXETINE HCL 13736417427 Active Quique Frey MD Active OXYCODONE-ACETAMINOPHEN 7.5-325 MG ORAL TABLET 1 po TID OXYCODONE-ACETAMINOPHEN 10969748741 No Longer Active Quique Frey MD Active CHANTIX STARTING MONTH SANG 0.5 MG X 11 & 1 MG X 42 ORAL TABL ET As directed. VARENICLINE TARTRATE 49242726018 Active Quique Frey MD Active ZYBAN 150 MG ORAL TABLET EXTENDED RELEASE 12 HOUR 1 po qd x 1 week, then 1 po BID BUPROPION HCL (SMOKING DETER) 69573642609 No Lo nger Active Quique Frey MD Active GABAPENTIN 300 MG ORAL CAPSULE 1 po qHS GABAP ENTIN 47251039167 No Longer Active Quique Frey MD Active CEFDINIR 300 MG ORAL CAPSULE 1 po BID x 10 days CEFDINIR 60737750305 No Longer Active Quique Frey MD Active ZYRTEC ALLERGY 10 MG ORAL CAPSULE 1 po qd CE TIRIZINE HCL 98305569457 No Longer Active Quique Frey MD Active FLONASE 50 MCG/ACT NASAL SUSPENSION 1 spray each nostr il twice daily for allergies and runny nose FLUTICASONE PROPIONATE 05554529509 No Longer Active Quique Frey MD Active ZITHROMAX Z-SANG 250 MG ORAL TABLET 2 today, then 1 daily for 4 d ays AZITHROMYCIN 64852178150 No Longer Active Robert Alireza NAUTICAL INSTRUMENT MECHANIC Active PREDNISONE 50 MG ORAL TABLET take 50 mg dialy for 6 days PREDNISONE 46930900098 No Longer Active Robert Alireza NAUTICAL INSTRUMENT MECHANIC Active (OXYCODONE-ACETAMINOPHEN) (OXYCODONE-AC ETAMINOPHEN) No Longer Active Robert Alireza NAUTICAL INSTRUMENT MECHANIC Active FLONASE 50 MCG/ACT NASAL SUSPENSION 1 spray each nostr il twice daily for allergies and runny nose FLONASE 50 MCG/ ACT NASAL SUSPENSION FLUTICASONE PROPIONATE Inactive ZYRTEC ALLERGY 10 MG ORAL CAPSULE 1 po qd ZYRTEC ALLERGY 10 MG ORAL CAPSULE CETIRIZINE HCL Inactive GABAPENTIN 300 MG ORAL CAPSULE 1 po qHS GABAPENTIN 300 MG ORAL CAPSULE 961846 GABAPENTIN Inactive OXYCODONE-ACETAMINOPHEN 7.5-325 MG ORAL TABLET 1 po TID OXYCODONE-ACETAMINOPHEN 7.5-325 MG ORAL TABLET 6742076 OXYCODONE-ALYSA TAMINOPHEN Inactive PREDNISONE 50 MG ORAL TABLET take 50 mg dialy for 6 days PREDNISONE 50 MG ORAL TABLET 108554 PREDNISONE Inactive ZITHROMAX Z-SANG 250 MG ORAL TABLET 2 today, then 1 daily for 4 d ays ZITHROMAX Z-SANG 250 MG ORAL TABLET 911683 AZITHROMYCIN Inactive CEFDINIR 300 MG ORAL CAPSULE 1 po BID x 10 days 02/04 CEFDINIR 300 MG ORAL CAPSULE 671196 CEFDINIR Inactive Vital Signs Date Name Value [...] - Chem istry sodium, serum 138 mmol/L 607-930 4537/03/01 carbon dioxide, venous blood 29.2 mmol/L 21.0-32 [...] mg/dL Encounters Code Encounter Date Provider Facility CPT-40649 Level 4 Est. Patient 13:56:52 CDT Quique Frey MD [facility] CPT-23561 Level 3 Est. Patient 09:33:16 PERFORMANCE TEST CONSULTANT Quique Frey MD [facility] CPT-83639 Level 3 Est. Patient 10:05:19 PERFORMANCE TEST CONSULTANT Robert kurtz APRN [facility] Procedures Code Procedure Name Date Entry Date Standard Desc ription CPT-61191 Chest, 2 views 09:41:42 PERFORMANCE TEST CONSULTANT
--- OUTSIDE RECORDS SUMMARY | 2020-05-01 06:20 | XMS REPORT | Clinical Summary ---
Author Author Admin, Thierry CASTRO Organization [employer] [facility] Address Unknown Phone Unavailable Allergies, Adverse Reactions, [...] ORAL TABL ET As directed. VARENICLINE TARTRATE 75920220433 Active Quique Frey MD Active ZYBAN 150 MG ORAL TABLET EXTENDED RELEASE 12 HOUR 1 po qd x 1 week, then 1 po BID BUPROPION HCL (SMOKING DETER) 76084903441 No Lo nger Active Quique Frey MD Active OXYCODONE-ACETAMINOPHEN 7.5-325 MG ORAL TABLET 1 po TID OXYCODONE-ACETAMINOPHEN 17283685242 Active Quique Frey MD Active GABAPENTIN 300 MG ORAL CAPSULE 1 po qHS GABAP ENTIN 54431432990 No Longer Active Quique Frey MD Active CEFDINIR 300 MG ORAL CAPSULE 1 po BID x 10 days CEFDINIR 54909972033 No Longer Active Quique Frey MD Active ZYRTEC ALLERGY 10 MG ORAL CAPSULE 1 po qd CE TIRIZINE HCL 08850411863 No Longer Active Quique Frey MD Active FLONASE 50 MCG/ACT NASAL SUSPENSION 1 spray each nostr il twice daily for allergies and runny nose FLUTICASONE PROPIONATE 40090525236 No Longer Active Quique Frey MD Active ZITHROMAX Z-SANG 250 MG ORAL TABLET 2 today, then 1 daily for 4 d ays AZITHROMYCIN 58313572346 No Longer Active Robert Lay APRN Active PREDNISONE 50 MG ORAL TABLET take 50 mg dialy for 6 days PREDNISONE 46681397611 No Longer Active Robert Alireza APPRAISAL SPECIALIST Active (OXYCODONE-ACETAMINOPHEN) (OXYCODONE-AC ETAMINOPHEN) No Longer Active Robert Alireza APPRAISAL SPECIALIST Active FLONASE 50 MCG/ACT NASAL SUSPENSION 1 spray each nostr il twice daily for allergies and runny nose FLONASE 50 MCG/ ACT NASAL SUSPENSION FLUTICASONE PROPIONATE Inactive ZYRTEC ALLERGY 10 MG ORAL CAPSULE 1 po qd ZYRTEC ALLERGY 10 MG ORAL CAPSULE CETIRIZINE HCL Inactive GABAPENTIN 300 MG ORAL CAPSULE 1 po qHS GABAPENTIN 300 MG ORAL CAPSULE 007841 GABAPENTIN Inactive PREDNISONE 50 MG ORAL TABLET take 50 mg dialy for 6 days PREDNISONE 50 MG ORAL TABLET 052002 PREDNISONE Inactive ZITHROMAX Z-SANG 250 MG ORAL TABLET 2 today, then 1 daily for 4 d ays ZITHROMAX Z-SANG 250 MG ORAL TABLET 773204 AZITHROMYCIN Inactive CEFDINIR 300 MG ORAL CAPSULE 1 po BID x 10 days 02/04 CEFDINIR 300 MG ORAL CAPSULE 967869 CEFDINIR Inactive Vital Signs Date Name Value Unit Range Description blood pressure, diastolic 74 mm[Hg] BP arteaga [...] - Chem istry sodium, serum 138 mmol/L 477-518 9065/03/01 carbon dioxide, venous blood 29.2 mmol/L 21.0-32 [...] mg/dL Encounters Code Encounter Date Provider Facility CPT-24077 Level 4 Est. Patient 13:56:52 CDT Quique Frey MD [facility] CPT-13115 Level 3 Est. Patient 09:33:16 TRUCK MECHANIC APPRENTICE Quique Frey MD [facility] CPT-59840 Level 3 Est. Patient 10:05:19 TRUCK MECHANIC APPRENTICE Robert kurtz APRN [facility] Procedures Code Procedure Name Date Entry Date Standard Desc ription CPT-45836 Chest, 2 views 09:41:42 TRUCK MECHANIC APPRENTICE
--- OUTSIDE RECORDS SUMMARY | 2020-05-01 06:20 | XMS REPORT | Clinical Summary ---
Author Author Admin, Thierry CASTRO Organization [employer] [facility] Address Unknown Phone [...] 1 po TID PRN Anxiety HYDROXYZINE HCL 04473199219 Active Quique Frey MD Active PAROXETINE HCL 20 MG ORAL TABLET 1 po qd PAR OXETINE HCL 67605726726 Active Quique Frey MD Active OXYCODONE-ACETAMINOPHEN 7.5-325 MG ORAL TABLET 1 po TID OXYCODONE-ACETAMINOPHEN 71279256706 No Longer Active Quique Frey MD Active CHANTIX STARTING MONTH SANG 0.5 MG X 11 & 1 MG X 42 ORAL TABL ET As directed. VARENICLINE TARTRATE 99509101798 Active Quique Frey MD Active ZYBAN 150 MG ORAL TABLET EXTENDED RELEASE 12 HOUR 1 po qd x 1 week, then 1 po BID BUPROPION HCL (SMOKING DETER) 37602550198 No Lo nger Active Quique Frey MD Active GABAPENTIN 300 MG ORAL CAPSULE 1 po qHS GABAP ENTIN 98307164978 No Longer Active Quique Frey MD Active CEFDINIR 300 MG ORAL CAPSULE 1 po BID x 10 days CEFDINIR 35227384803 No Longer Active Quique Frey MD Active ZYRTEC ALLERGY 10 MG ORAL CAPSULE 1 po qd CE TIRIZINE HCL 76616208397 No Longer Active Quique Frey MD Active FLONASE 50 MCG/ACT NASAL SUSPENSION 1 spray each nostr il twice daily for allergies and runny nose FLUTICASONE PROPIONATE 70440080936 No Longer Active Quique Frey MD Active ZITHROMAX Z-SANG 250 MG ORAL TABLET 2 today, then 1 daily for 4 d ays AZITHROMYCIN 15247440281 No Longer Active Robert Alireza NEWS CAMERAMAN Active PREDNISONE 50 MG ORAL TABLET take 50 mg dialy for 6 days PREDNISONE 99945684576 No Longer Active Robert Alireza NEWS CAMERAMAN Active (OXYCODONE-ACETAMINOPHEN) (OXYCODONE-AC ETAMINOPHEN) No Longer Active Robert Alireza NEWS CAMERAMAN Active FLONASE 50 MCG/ACT NASAL SUSPENSION 1 spray each nostr il twice daily for allergies and runny nose FLONASE 50 MCG/ ACT NASAL SUSPENSION FLUTICASONE PROPIONATE Inactive ZYRTEC ALLERGY 10 MG ORAL CAPSULE 1 po qd ZYRTEC ALLERGY 10 MG ORAL CAPSULE CETIRIZINE HCL Inactive GABAPENTIN 300 MG ORAL CAPSULE 1 po qHS GABAPENTIN 300 MG ORAL CAPSULE 366126 GABAPENTIN Inactive OXYCODONE-ACETAMINOPHEN 7.5-325 MG ORAL TABLET 1 po TID OXYCODONE-ACETAMINOPHEN 7.5-325 MG ORAL TABLET 1984327 OXYCODONE-ALYSA TAMINOPHEN Inactive PREDNISONE 50 MG ORAL TABLET take 50 mg dialy for 6 days PREDNISONE 50 MG ORAL TABLET 893926 PREDNISONE Inactive ZITHROMAX Z-SANG 250 MG ORAL TABLET 2 today, then 1 daily for 4 d ays ZITHROMAX Z-SANG 250 MG ORAL TABLET 916165 AZITHROMYCIN Inactive CEFDINIR 300 MG ORAL CAPSULE 1 po BID x 10 days 02/04 CEFDINIR 300 MG ORAL CAPSULE 525793 CEFDINIR Inactive Vital Signs Date Name Value [...] 11 .6-14.8 platelet count 250 10^3/MM^3 10*3/mm3 076-549 9243/03/01 erythrocyte (RBC) count 5.17 10^6/MM^3 10*6/mm3 4.50-6.5 0 lymphocytes as percent of blood leukocytes 21.3 % 20.5-51.1 monocytes as percent of blood leukocytes 9.6 % 1.7-9.3 neutrophils as percent of blood leukocytes 65.8 % 42.2-75.2 leukocyte count, blood 6.4 10^3/MM^3 10*3/mm3 4.6-10.2 Lab Report: Comp. Metabolic Panel - Chem istry calcium, serum 8.6 mg/dL 8.5-10.1 bilirubin, serum, total 1.70 mg/dL 0.00-1.00 sodium, serum 138 mmol/L 646-346 2886/03/01 carbon dioxide, venous blood 29.2 mmol/L 21.0-32 [...] mg/dL Encounters Code Encounter Date Provider Facility CPT-00390 Level 4 Est. Patient 13:56:52 CDT Quique Frey MD [facility] CPT-63880 Level 3 Est. Patient 09:33:16 POLYMER MATERIALS CONSULTANT Quique Frey MD [facility] CPT-74206 Level 3 Est. Patient 10:05:19 POLYMER MATERIALS CONSULTANT Robert kurtz APRN [facility] Procedures Code Procedure Name Date Entry Date Standard Desc ription CPT-42287 Chest, 2 views 09:41:42 POLYMER MATERIALS CONSULTANT
--- OUTSIDE RECORDS SUMMARY | 2020-05-01 06:20 | XMS REPORT | Clinical Summary ---
Author Author Admin, Thierry CASTRO Organization [employer] [facility] Address Unknown Phone Unavailable Allergies, Adverse [...] 1 po TID PRN Anxiety HYDROXYZINE HCL 31099707887 Active Quique Frey MD Active PAROXETINE HCL 20 MG ORAL TABLET 1 po qd PAR OXETINE HCL 08344899227 Active Quique Frey MD Active OXYCODONE-ACETAMINOPHEN 7.5-325 MG ORAL TABLET 1 po TID OXYCODONE-ACETAMINOPHEN 96988523871 No Longer Active Quique Frey MD Active CHANTIX STARTING MONTH SANG 0.5 MG X 11 & 1 MG X 42 ORAL TABL ET As directed. VARENICLINE TARTRATE 05897876474 Active Quique Frey MD Active ZYBAN 150 MG ORAL TABLET EXTENDED RELEASE 12 HOUR 1 po qd x 1 week, then 1 po BID BUPROPION HCL (SMOKING DETER) 75087993305 No Lo nger Active Quique Frey MD Active GABAPENTIN 300 MG ORAL CAPSULE 1 po qHS GABAP ENTIN 33340259674 No Longer Active Quique Frey MD Active CEFDINIR 300 MG ORAL CAPSULE 1 po BID x 10 days CEFDINIR 77899953972 No Longer Active Quique Frey MD Active ZYRTEC ALLERGY 10 MG ORAL CAPSULE 1 po qd CE TIRIZINE HCL 43721966562 No Longer Active Quique Frey MD Active FLONASE 50 MCG/ACT NASAL SUSPENSION 1 spray each nostr il twice daily for allergies and runny nose FLUTICASONE PROPIONATE 84289006452 No Longer Active Quique Frey MD Active ZITHROMAX Z-SANG 250 MG ORAL TABLET 2 today, then 1 daily for 4 d ays AZITHROMYCIN 82598624546 No Longer Active Robert Alireza DESIZING PAD OPERATOR Active PREDNISONE 50 MG ORAL TABLET take 50 mg dialy for 6 days PREDNISONE 86219053238 No Longer Active Robert Alireza DESIZING PAD OPERATOR Active (OXYCODONE-ACETAMINOPHEN) (OXYCODONE-AC ETAMINOPHEN) No Longer Active Robert Alireza DESIZING PAD OPERATOR Active FLONASE 50 MCG/ACT NASAL SUSPENSION 1 spray each nostr il twice daily for allergies and runny nose FLONASE 50 MCG/ ACT NASAL SUSPENSION FLUTICASONE PROPIONATE Inactive ZYRTEC ALLERGY 10 MG ORAL CAPSULE 1 po qd ZYRTEC ALLERGY 10 MG ORAL CAPSULE CETIRIZINE HCL Inactive GABAPENTIN 300 MG ORAL CAPSULE 1 po qHS GABAPENTIN 300 MG ORAL CAPSULE 445209 GABAPENTIN Inactive OXYCODONE-ACETAMINOPHEN 7.5-325 MG ORAL TABLET 1 po TID OXYCODONE-ACETAMINOPHEN 7.5-325 MG ORAL TABLET 3841956 OXYCODONE-ALYSA TAMINOPHEN Inactive PREDNISONE 50 MG ORAL TABLET take 50 mg dialy for 6 days PREDNISONE 50 MG ORAL TABLET 641400 PREDNISONE Inactive ZITHROMAX Z-SANG 250 MG ORAL TABLET 2 today, then 1 daily for 4 d ays ZITHROMAX Z-SANG 250 MG ORAL TABLET 589840 AZITHROMYCIN Inactive CEFDINIR 300 MG ORAL CAPSULE 1 po BID x 10 days 02/04 CEFDINIR 300 MG ORAL CAPSULE 108786 CEFDINIR Inactive Vital Signs Date Name Value [...] pressure, diastolic, repeated by physician 71 BP arteaag blood pressure, diastolic 71 mm[Hg] BP arteaga [...] - Chem istry sodium, serum 138 mmol/L 969-430 9334/03/01 carbon dioxide, venous blood 29.2 mmol/L 21.0-32 [...] mg/dL Encounters Code Encounter Date Provider Facility CPT-90031 Level 4 Est. Patient 13:56:52 CDT Quique Frey MD [facility] CPT-23237 Level 3 Est. Patient 09:33:16 SKATE HOP Quique Frey MD [facility] CPT-05248 Level 3 Est. Patient 10:05:19 SKATE HOP Robert kurtz APRN [facility] Procedures Code Procedure Name Date Entry Date Standard Desc ription CPT-35092 Chest, 2 views 09:41:42 SKATE HOP
--- OUTSIDE RECORDS SUMMARY | 2020-05-01 06:20 | XMS REPORT | Clinical Summary ---
Author Author Admin, Thierry CASTRO Organization [employer] [facility] Address Unknown Phone Unavailable Allergies, Adverse [...] 1 po TID PRN Anxiety HYDROXYZINE HCL 28124224931 Active Quique Frey MD Active PAROXETINE HCL 20 MG ORAL TABLET 1 po qd PAR OXETINE HCL 36763438226 Active Quique Frey MD Active OXYCODONE-ACETAMINOPHEN 7.5-325 MG ORAL TABLET 1 po TID OXYCODONE-ACETAMINOPHEN 37280309081 No Longer Active Quique Frey MD Active CHANTIX STARTING MONTH SANG 0.5 MG X 11 & 1 MG X 42 ORAL TABL ET As directed. VARENICLINE TARTRATE 15741986153 Active Quique Frey MD Active ZYBAN 150 MG ORAL TABLET EXTENDED RELEASE 12 HOUR 1 po qd x 1 week, then 1 po BID BUPROPION HCL (SMOKING DETER) 64204741957 No Lo nger Active Quique Frey MD Active GABAPENTIN 300 MG ORAL CAPSULE 1 po qHS GABAP ENTIN 58498846718 No Longer Active Quique Frey MD Active CEFDINIR 300 MG ORAL CAPSULE 1 po BID x 10 days CEFDINIR 34594905464 No Longer Active Quique Frey MD Active ZYRTEC ALLERGY 10 MG ORAL CAPSULE 1 po qd CE TIRIZINE HCL 23003219947 No Longer Active Quique Frey MD Active FLONASE 50 MCG/ACT NASAL SUSPENSION 1 spray each nostr il twice daily for allergies and runny nose FLUTICASONE PROPIONATE 43086062793 No Longer Active Quique Frey MD Active ZITHROMAX Z-SANG 250 MG ORAL TABLET 2 today, then 1 daily for 4 d ays AZITHROMYCIN 13114736198 No Longer Active Robert Alireza VP DIRECTOR OF FINANCE Active PREDNISONE 50 MG ORAL TABLET take 50 mg dialy for 6 days PREDNISONE 88017197974 No Longer Active Robert Alireza VP DIRECTOR OF FINANCE Active (OXYCODONE-ACETAMINOPHEN) (OXYCODONE-AC ETAMINOPHEN) No Longer Active Robert Alireza VP DIRECTOR OF FINANCE Active FLONASE 50 MCG/ACT NASAL SUSPENSION 1 spray each nostr il twice daily for allergies and runny nose FLONASE 50 MCG/ ACT NASAL SUSPENSION FLUTICASONE PROPIONATE Inactive ZYRTEC ALLERGY 10 MG ORAL CAPSULE 1 po qd ZYRTEC ALLERGY 10 MG ORAL CAPSULE CETIRIZINE HCL Inactive GABAPENTIN 300 MG ORAL CAPSULE 1 po qHS GABAPENTIN 300 MG ORAL CAPSULE 980252 GABAPENTIN Inactive OXYCODONE-ACETAMINOPHEN 7.5-325 MG ORAL TABLET 1 po TID OXYCODONE-ACETAMINOPHEN 7.5-325 MG ORAL TABLET 5358127 OXYCODONE-ALYSA TAMINOPHEN Inactive PREDNISONE 50 MG ORAL TABLET take 50 mg dialy for 6 days PREDNISONE 50 MG ORAL TABLET 911509 PREDNISONE Inactive ZITHROMAX Z-SANG 250 MG ORAL TABLET 2 today, then 1 daily for 4 d ays ZITHROMAX Z-SANG 250 MG ORAL TABLET 602392 AZITHROMYCIN Inactive CEFDINIR 300 MG ORAL CAPSULE 1 po BID x 10 days 02/04 CEFDINIR 300 MG ORAL CAPSULE 051243 CEFDINIR Inactive Vital Signs Date Name Value [...] - Chem istry sodium, serum 138 mmol/L 673-468 8845/03/01 carbon dioxide, venous blood 29.2 mmol/L 21.0-32 [...] mg/dL Encounters Code Encounter Date Provider Facility CPT-03665 Level 4 Est. Patient 13:56:52 CDT Quique Frey MD [facility] CPT-52925 Level 3 Est. 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 Patient 10:05:19 TUBULAR SPLITTING MACHINE TENDER Robert kurtz APRN [facility] Procedures Code Procedure Name Date Entry Date Standard Desc ription CPT-56278 Chest, 2 views 09:41:42 TUBULAR SPLITTING MACHINE TENDER
--- OUTSIDE RECORDS SUMMARY | 2020-05-01 06:20 | XMS REPORT | Clinical Summary ---
Author Author Admin, Thierry CASTRO Organization [employer] [facility] Address Unknown Phone Unavailable Allergies, Adverse Reactions, [...] Generic Name NDC Status Provider Patient Instruction ZYBAN 150 MG ORAL TABLET EXTENDED RELEASE 12 HOUR 1 po qd x 1 week, then 1 po BID BUPROPION HCL (SMOKING DETER) 88415556243 Activ e Quique Frey MD Active OXYCODONE-ACETAMINOPHEN 7.5-325 MG ORAL TABLET 1 po TID OXYCODONE-ACETAMINOPHEN 51655214284 Active Quique Frey MD Active GABAPENTIN 300 MG ORAL CAPSULE 1 po qHS GABAP ENTIN 97927621205 No Longer Active Quique Frey MD Active CEFDINIR 300 MG ORAL CAPSULE 1 po BID x 10 days CEFDINIR 59130953777 No Longer Active Quique Frey MD Active ZYRTEC ALLERGY 10 MG ORAL CAPSULE 1 po qd CE TIRIZINE HCL 93712061928 No Longer Active Quique Frey MD Active FLONASE 50 MCG/ACT NASAL SUSPENSION 1 spray each nostr il twice daily for allergies and runny nose FLUTICASONE PROPIONATE 52069731533 No Longer Active Quique Frey MD Active ZITHROMAX Z-SANG 250 MG ORAL TABLET 2 today, then 1 daily for 4 d ays AZITHROMYCIN 53417941348 No Longer Active Robert Alireza TANGIBLE PERSONAL PROPERTY APPRAISER Active PREDNISONE 50 MG ORAL TABLET take 50 mg dialy for 6 days PREDNISONE 74063685101 No Longer Active Robert Alireza TANGIBLE PERSONAL PROPERTY APPRAISER Active (OXYCODONE-ACETAMINOPHEN) (OXYCODONE-AC ETAMINOPHEN) No Longer Active Robert Alireza TANGIBLE PERSONAL PROPERTY APPRAISER Active FLONASE 50 MCG/ACT NASAL SUSPENSION 1 spray each nostr il twice daily for allergies and runny nose FLONASE 50 MCG/ ACT NASAL SUSPENSION FLUTICASONE PROPIONATE Inactive ZYRTEC ALLERGY 10 MG ORAL CAPSULE 1 po qd ZYRTEC ALLERGY 10 MG ORAL CAPSULE CETIRIZINE HCL Inactive GABAPENTIN 300 MG ORAL CAPSULE 1 po qHS GABAPENTIN 300 MG ORAL CAPSULE 149186 GABAPENTIN Inactive PREDNISONE 50 MG ORAL TABLET take 50 mg dialy for 6 days PREDNISONE 50 MG ORAL TABLET 616913 PREDNISONE Inactive ZITHROMAX Z-SANG 250 MG ORAL TABLET 2 today, then 1 daily for 4 d ays ZITHROMAX Z-SANG 250 MG ORAL TABLET 988330 AZITHROMYCIN Inactive CEFDINIR 300 MG ORAL CAPSULE 1 po BID x 10 days 02/04 CEFDINIR 300 MG ORAL CAPSULE 610707 CEFDINIR Inactive Vital Signs Date Name Value [...] - Chem istry sodium, serum 138 mmol/L 521-122 1098/03/01 carbon dioxide, venous blood 29.2 mmol/L 21.0-32 [...] mg/dL Encounters Code Encounter Date Provider Facility CPT-75950 Level 4 Est. Patient 13:56:52 CDT Quique Frey MD [facility] CPT-78640 Level 3 Est. Patient 09:33:16 SIMULATION DEVELOPER Quique Frey MD [facility] CPT-91791 Level 3 Est. Patient 10:05:19 SIMULATION DEVELOPER Robert kurtz APRN [facility] Procedures Code Procedure Name Date Entry Date Standard Desc ription CPT-87209 Chest, 2 views 09:41:42 SIMULATION DEVELOPER
--- OUTSIDE RECORDS SUMMARY | 2020-05-01 06:20 | XMS REPORT | Clinical Summary ---
Author Author Admin, Thierry CASTRO Organization [employer] [facility] Address Unknown Phone Unavailable Allergies, [...] 1 po TID PRN Anxiety HYDROXYZINE HCL 01609711910 Active Quique Frey MD Active PAROXETINE HCL 20 MG ORAL TABLET 1 po qd PAR OXETINE HCL 86893334484 Active Quique Frey MD Active OXYCODONE-ACETAMINOPHEN 7.5-325 MG ORAL TABLET 1 po TID OXYCODONE-ACETAMINOPHEN 60226746541 No Longer Active Quique Frey MD Active CHANTIX STARTING MONTH SANG 0.5 MG X 11 & 1 MG X 42 ORAL TABL ET As directed. VARENICLINE TARTRATE 10698436714 Active Quique Frey MD Active ZYBAN 150 MG ORAL TABLET EXTENDED RELEASE 12 HOUR 1 po qd x 1 week, then 1 po BID BUPROPION HCL (SMOKING DETER) 56653020862 No Lo nger Active Quique Frey MD Active GABAPENTIN 300 MG ORAL CAPSULE 1 po qHS GABAP ENTIN 17242285533 No Longer Active Quique Frye MD Active CEFDINIR 300 MG ORAL CAPSULE 1 po BID x 10 days CEFDINIR 05387700469 No Longer Active Quique Frey MD Active ZYRTEC ALLERGY 10 MG ORAL CAPSULE 1 po qd CE TIRIZINE HCL 02583327619 No Longer Active Quique Frey MD Active FLONASE 50 MCG/ACT NASAL SUSPENSION 1 spray each nostr il twice daily for allergies and runny nose FLUTICASONE PROPIONATE 30188625419 No Longer Active Quique Frey MD Active ZITHROMAX Z-SANG 250 MG ORAL TABLET 2 today, then 1 daily for 4 d ays AZITHROMYCIN 39488702061 No Longer Active Robert Alireza PHYSICIAN INTENSIVIST Active PREDNISONE 50 MG ORAL TABLET take 50 mg dialy for 6 days PREDNISONE 04035968558 No Longer Active Robert Alireza PHYSICIAN INTENSIVIST Active (OXYCODONE-ACETAMINOPHEN) (OXYCODONE-AC ETAMINOPHEN) No Longer Active Robert Alireza PHYSICIAN INTENSIVIST Active FLONASE 50 MCG/ACT NASAL SUSPENSION 1 spray each nostr il twice daily for allergies and runny nose FLONASE 50 MCG/ ACT NASAL SUSPENSION FLUTICASONE PROPIONATE Inactive ZYRTEC ALLERGY 10 MG ORAL CAPSULE 1 po qd ZYRTEC ALLERGY 10 MG ORAL CAPSULE CETIRIZINE HCL Inactive GABAPENTIN 300 MG ORAL CAPSULE 1 po qHS GABAPENTIN 300 MG ORAL CAPSULE 483167 GABAPENTIN Inactive OXYCODONE-ACETAMINOPHEN 7.5-325 MG ORAL TABLET 1 po TID OXYCODONE-ACETAMINOPHEN 7.5-325 MG ORAL TABLET 9640830 OXYCODONE-ALYSA TAMINOPHEN Inactive PREDNISONE 50 MG ORAL TABLET take 50 mg dialy for 6 days PREDNISONE 50 MG ORAL TABLET 135030 PREDNISONE Inactive ZITHROMAX Z-SANG 250 MG ORAL TABLET 2 today, then 1 daily for 4 d ays ZITHROMAX Z-SANG 250 MG ORAL TABLET 994182 AZITHROMYCIN Inactive CEFDINIR 300 MG ORAL CAPSULE 1 po BID x 10 days 02/04 CEFDINIR 300 MG ORAL CAPSULE 166529 CEFDINIR Inactive Vital Signs Date Name Value [...] - Chem istry sodium, serum 138 mmol/L 186-338 7893/03/01 carbon dioxide, venous blood 29.2 mmol/L 21.0-32 [...] mg/dL Encounters Code Encounter Date Provider Facility CPT-18065 Level 4 Est. Patient 13:56:52 CDT Quique Frey MD [facility] CPT-18769 Level 3 Est. Patient 09:33:16 CASING TRIMMER Quique Frey MD [facility] CPT-70325 Level 3 Est. Patient 10:05:19 CASING TRIMMER Robert kurtz APRN [facility] Procedures Code Procedure Name Date Entry Date Standard Desc ription CPT-76478 Chest, 2 views 09:41:42 CASING TRIMMER
--- OUTSIDE RECORDS SUMMARY | 2020-05-01 06:20 | XMS REPORT | Clinical Summary ---
Author Author Admin, Thierry CASTRO Organization [email or web address] [facility] Address Unknown Phone Unavailable Allergies, [...] 1 po TID PRN Anxiety HYDROXYZINE HCL 71992501984 Active Quique Frey MD Active PAROXETINE HCL 20 MG ORAL TABLET 1 po qd PAR OXETINE HCL 07206151993 Active Quique Frey MD Active OXYCODONE-ACETAMINOPHEN 7.5-325 MG ORAL TABLET 1 po TID OXYCODONE-ACETAMINOPHEN 59770204652 No Longer Active Quique Frey MD Active CHANTIX STARTING MONTH SANG 0.5 MG X 11 & 1 MG X 42 ORAL TABL ET As directed. VARENICLINE TARTRATE 78084846764 Active Quique Frey MD Active ZYBAN 150 MG ORAL TABLET EXTENDED RELEASE 12 HOUR 1 po qd x 1 week, then 1 po BID BUPROPION HCL (SMOKING DETER) 37157851663 No Lo nger Active Quique Frey MD Active GABAPENTIN 300 MG ORAL CAPSULE 1 po qHS GABAP ENTIN 49625243397 No Longer Active Quique Frey MD Active CEFDINIR 300 MG ORAL CAPSULE 1 po BID x 10 days CEFDINIR 54964840020 No Longer Active Quique Frey MD Active ZYRTEC ALLERGY 10 MG ORAL CAPSULE 1 po qd CE TIRIZINE HCL 24649452929 No Longer Active Quique Frey MD Active FLONASE 50 MCG/ACT NASAL SUSPENSION 1 spray each nostr il twice daily for allergies and runny nose FLUTICASONE PROPIONATE 09001532185 No Longer Active Quique Frey MD Active ZITHROMAX Z-SANG 250 MG ORAL TABLET 2 today, then 1 daily for 4 d ays AZITHROMYCIN 60643940573 No Longer Active Robert Alireza MANAGER RETAIL SALES Active PREDNISONE 50 MG ORAL TABLET take 50 mg dialy for 6 days PREDNISONE 50602833150 No Longer Active Robert Alireza MANAGER RETAIL SALES Active (OXYCODONE-ACETAMINOPHEN) (OXYCODONE-AC ETAMINOPHEN) No Longer Active Robert Alireza MANAGER RETAIL SALES Active FLONASE 50 MCG/ACT NASAL SUSPENSION 1 spray each nostr il twice daily for allergies and runny nose FLONASE 50 MCG/ ACT NASAL SUSPENSION FLUTICASONE PROPIONATE Inactive ZYRTEC ALLERGY 10 MG ORAL CAPSULE 1 po qd ZYRTEC ALLERGY 10 MG ORAL CAPSULE CETIRIZINE HCL Inactive GABAPENTIN 300 MG ORAL CAPSULE 1 po qHS GABAPENTIN 300 MG ORAL CAPSULE 400106 GABAPENTIN Inactive OXYCODONE-ACETAMINOPHEN 7.5-325 MG ORAL TABLET 1 po TID OXYCODONE-ACETAMINOPHEN 7.5-325 MG ORAL TABLET 0491195 OXYCODONE-ALYSA TAMINOPHEN Inactive PREDNISONE 50 MG ORAL TABLET take 50 mg dialy for 6 days PREDNISONE 50 MG ORAL TABLET 388693 PREDNISONE Inactive ZITHROMAX Z-SANG 250 MG ORAL TABLET 2 today, then 1 daily for 4 d ays ZITHROMAX Z-SANG 250 MG ORAL TABLET 543267 AZITHROMYCIN Inactive CEFDINIR 300 MG ORAL CAPSULE 1 po BID x 10 days 02/04 CEFDINIR 300 MG ORAL CAPSULE 182263 CEFDINIR Inactive Vital Signs Date Name Value [...] - Chem istry sodium, serum 138 mmol/L 516-329 1171/03/01 carbon dioxide, venous blood 29.2 mmol/L 21.0-32 [...] mg/dL Encounters Code Encounter Date Provider Facility CPT-45273 Level 4 Est. Patient 13:56:52 CDT Quique Frey MD [facility] CPT-11092 Level 3 Est. 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 Patient 10:05:19 HEAT PUMP INSTALLER Robert kurtz APRN [facility] Procedures Code Procedure Name Date Entry Date Standard Desc ription CPT-02532 Chest, 2 views 09:41:42 HEAT PUMP INSTALLER
--- OUTSIDE RECORDS SUMMARY | 2020-05-01 06:21 | XMS REPORT | Clinical Summary ---
Author Author Admin, Thierry CASTRO Organization [employer] [facility] Address Unknown Phone Unavailable Allergies, [...] 1 po BID BUPROPION HCL (SMOKING DETER) [id number] Activ e Quique Frey MD Active OXYCODONE-ACETAMINOPHEN 7.5-325 MG ORAL TABLET 1 po TID OXYCODONE-ACETAMINOPHEN 42253057077 Active Quique Frey MD Active GABAPENTIN 300 MG ORAL CAPSULE 1 po qHS GABAP ENTIN 04327051723 No Longer Active Quique Frey MD Active CEFDINIR 300 MG ORAL CAPSULE 1 po BID x 10 days CEFDINIR 11559132140 No Longer Active Quique Frey MD Active ZYRTEC ALLERGY 10 MG ORAL CAPSULE 1 po qd CE TIRIZINE HCL 03038152096 No Longer Active Quique Frey MD Active FLONASE 50 MCG/ACT NASAL SUSPENSION 1 spray each nostr il twice daily for allergies and runny nose FLUTICASONE PROPIONATE 31978035169 No Longer Active Quique Frey MD Active ZITHROMAX Z-SANG 250 MG ORAL TABLET 2 today, then 1 daily for 4 d ays AZITHROMYCIN 21766882110 No Longer Active Robert Alireza ENGRAVINGS POLISHER Active PREDNISONE 50 MG ORAL TABLET take 50 mg dialy for 6 days PREDNISONE 78479861918 No Longer Active Robert Alireza ENGRAVINGS POLISHER Active (OXYCODONE-ACETAMINOPHEN) (OXYCODONE-AC ETAMINOPHEN) No Longer Active Robert Alireza ENGRAVINGS POLISHER Active FLONASE 50 MCG/ACT NASAL SUSPENSION 1 spray each nostr il twice daily for allergies and runny nose FLONASE 50 MCG/ ACT NASAL SUSPENSION FLUTICASONE PROPIONATE Inactive ZYRTEC ALLERGY 10 MG ORAL CAPSULE 1 po qd ZYRTEC ALLERGY 10 MG ORAL CAPSULE CETIRIZINE HCL Inactive GABAPENTIN 300 MG ORAL CAPSULE 1 po qHS GABAPENTIN 300 MG ORAL CAPSULE 943718 GABAPENTIN Inactive PREDNISONE 50 MG ORAL TABLET take 50 mg dialy for 6 days PREDNISONE 50 MG ORAL TABLET 246072 PREDNISONE Inactive ZITHROMAX Z-SANG 250 MG ORAL TABLET 2 today, then 1 daily for 4 d ays ZITHROMAX Z-SANG 250 MG ORAL TABLET 330190 AZITHROMYCIN Inactive CEFDINIR 300 MG ORAL CAPSULE 1 po BID x 10 days 02/04 CEFDINIR 300 MG ORAL CAPSULE 955501 CEFDINIR Inactive Vital Signs Date Name Value [...] - Chem istry sodium, serum 138 mmol/L 311-816 6036/03/01 carbon dioxide, venous blood 29.2 mmol/L 21.0-32 [...] mg/dL Encounters Code Encounter Date Provider Facility CPT-43386 Level 4 Est. Patient 13:56:52 CDT Quique Frey MD [facility] CPT-64842 Level 3 Est. Patient 09:33:16 REGISTRY NP Quique Frey MD [facility] CPT-54943 Level 3 Est. Patient 10:05:19 REGISTRY NP Robert kurtz APRN [facility] Procedures Code Procedure Name Date Entry Date Standard Desc ription CPT-97748 Chest, 2 views 09:41:42 REGISTRY NP
--- OUTSIDE RECORDS SUMMARY | 2020-05-01 06:21 | XMS REPORT | Clinical Summary ---
Author Author Admin, Thierry CASTRO Organization [facility] Address Unknown Phone Unavailable Allergies, Adverse [...] facility Tobacco dependence, continuous 305.1 Active 05/01 Quiuqe Frey MD Tobacco use disorder Back pain, [...] 1 po BID BUPROPION HCL (SMOKING DETER) 02735326444 Activ e Quique Frey MD Active OXYCODONE-ACETAMINOPHEN 7.5-325 MG ORAL TABLET 1 po TID OXYCODONE-ACETAMINOPHEN 35752590525 Active Quique Frey MD Active GABAPENTIN 300 MG ORAL CAPSULE 1 po qHS GABAP ENTIN 05759977918 No Longer Active Quique Frey MD Active CEFDINIR 300 MG ORAL CAPSULE 1 po BID x 10 days CEFDINIR 74438541601 No Longer Active Quique Frey MD Active ZYRTEC ALLERGY 10 MG ORAL CAPSULE 1 po qd CE TIRIZINE HCL 42233838224 No Longer Active Quique Frey MD Active FLONASE 50 MCG/ACT NASAL SUSPENSION 1 spray each nostr il twice daily for allergies and runny nose FLUTICASONE PROPIONATE 53418406010 No Longer Active Quique Frey MD Active ZITHROMAX Z-SANG 250 MG ORAL TABLET 2 today, then 1 daily for 4 d ays AZITHROMYCIN 35241971435 No Longer Active Robert Alireza SOFTWARE ARCHITECT Active PREDNISONE 50 MG ORAL TABLET take 50 mg dialy for 6 days PREDNISONE 74685168975 No Longer Active Robert Alireza SOFTWARE ARCHITECT Active (OXYCODONE-ACETAMINOPHEN) (OXYCODONE-AC ETAMINOPHEN) No Longer Active Robert Alireza SOFTWARE ARCHITECT Active FLONASE 50 MCG/ACT NASAL SUSPENSION 1 spray each nostr il twice daily for allergies and runny nose FLONASE 50 MCG/ ACT NASAL SUSPENSION FLUTICASONE PROPIONATE Inactive ZYRTEC ALLERGY 10 MG ORAL CAPSULE 1 po qd ZYRTEC ALLERGY 10 MG ORAL CAPSULE CETIRIZINE HCL Inactive GABAPENTIN 300 MG ORAL CAPSULE 1 po qHS GABAPENTIN 300 MG ORAL CAPSULE 551854 GABAPENTIN Inactive PREDNISONE 50 MG ORAL TABLET take 50 mg dialy for 6 days PREDNISONE 50 MG ORAL TABLET 466952 PREDNISONE Inactive ZITHROMAX Z-SANG 250 MG ORAL TABLET 2 today, then 1 daily for 4 d ays ZITHROMAX Z-SANG 250 MG ORAL TABLET 904058 AZITHROMYCIN Inactive CEFDINIR 300 MG ORAL CAPSULE 1 po BID x 10 days 02/04 CEFDINIR 300 MG ORAL CAPSULE 453405 CEFDINIR Inactive Vital Signs Date Name Value [...] - Chem istry sodium, serum 138 mmol/L 208-715 3539/03/01 carbon dioxide, venous blood 29.2 mmol/L 21.0-32 [...] mg/dL Encounters Code Encounter Date Provider Facility CPT-50222 Level 4 Est. Patient 13:56:52 CDT Quique Frey MD [facility] CPT-92560 Level 3 Est. Patient 09:33:16 WIRELESS ENGINEER Quique Frey MD [facility] CPT-23125 Level 3 Est. Patient 10:05:19 WIRELESS ENGINEER Robert kurtz APRN [facility] Procedures Code Procedure Name Date Entry Date Standard Desc ription CPT-56871 Chest, 2 views 09:41:42 WIRELESS ENGINEER
--- OUTSIDE RECORDS SUMMARY | 2020-05-01 06:21 | XMS REPORT | Clinical Summary ---
Author Author Admin, Thierry CASTRO Organization [facility] Address Unknown Phone Unavailable Allergies, Adverse Reactions, Alerts Allergy Name Reaction Description Start Date Severity Status Pr ovider SULFA Critical Active Robert Alireza A PRN Conditions or Problems Problem Name Problem Code Onset Date Status Entry Date Provider Comment Standard Description Annotate Sinusitis, acute (sinus infection) 461.9 Active 2 Robert Alireza FOOD SAFETY MANAGER Acute sinusitis, unspecified Pharyngitis, acute / sore throat 462 Active 201 9 Robert Alireza FOOD SAFETY MANAGER Acute pharyngitis Sinusitis, acute 461.9 Active Quique Carl Acute sinusitis, unspecified Cough 786.2 Active Quique Frey MD Cough Medication List Medication Instructions Start Date Stop Date Generic Name NDC Status Provider Patient Instruction CEFDINIR 300 MG ORAL CAPSULE 1 po BID x 10 days CEFDINIR 22796755627 Active Quique Frey MD Active OXYCODONE-ACETAMINOPHEN 7.5-325 MG ORAL TABLET 1 tab tid OXYCODONE-ACETAMINOPHEN 55235685905 Active Quique Frey MD Active GABAPENTIN 300 MG ORAL CAPSULE 1 po qHS GABAPENT IN 95251470855 Active Quique Frey MD Active ZYRTEC ALLERGY 10 MG ORAL CAPSULE 1 po qd CE TIRIZINE HCL 71260755208 No Longer Active Quique Frey MD Active FLONASE 50 MCG/ACT NASAL SUSPENSION 1 spray each nostr il twice daily for allergies and runny nose FLUTICASONE PROPIONATE 45289331965 No Longer Active Quique Frey MD Active ZITHROMAX Z-SANG 250 MG ORAL TABLET 2 today, then 1 daily for 4 d ays AZITHROMYCIN 58584477487 No Longer Active Robert Alireza FOOD SAFETY MANAGER Active PREDNISONE 50 MG ORAL TABLET take 50 mg dialy for 6 days PREDNISONE 33368485108 No Longer Active Robert Alireza FOOD SAFETY MANAGER Active (OXYCODONE-ACETAMINOPHEN) (OXYCODONE-AC ETAMINOPHEN) No Longer Active Robert Alireza FOOD SAFETY MANAGER Active FLONASE 50 MCG/ACT NASAL SUSPENSION 1 spray each nostr il twice daily for allergies and runny nose FLONASE 50 MCG/ ACT NASAL SUSPENSION 5821762 FLUTICASONE PROPIONATE Inactive ZYRTEC ALLERGY 10 MG ORAL CAPSULE 1 po qd ZYRTEC ALLERGY 10 MG ORAL CAPSULE CETIRIZINE HCL Inactive PREDNISONE 50 MG ORAL TABLET take 50 mg dialy for 6 days PREDNISONE 50 MG ORAL TABLET 675169 PREDNISONE Inactive ZITHROMAX Z-SANG 250 MG ORAL TABLET 2 today, then 1 daily for 4 d ays ZITHROMAX Z-SANG 250 MG ORAL TABLET 038150 AZITHROMYCIN Inactive Vital Signs Date Name Value Unit Range Description blood pressure, diastolic 72 mm[Hg] BP arteaga [...] - Chem istry sodium, serum 138 mmol/L 094-498 7553/03/01 carbon dioxide, venous blood 29.2 mmol/L 21.0-32 [...] mg/dL Encounters Code Encounter Date Provider Facility CPT-23687 Level 3 Est. Patient 09:33:16 FLEET MECHANIC Quique Frey MD [facility] CPT-03449 Level 3 Est. Patient 10:05:19 FLEET MECHANIC [facility] Procedures Code Procedure Name Date Entry Date Standard Desc ription CPT-19896 Chest, 2 views 09:41:42 FLEET MECHANIC
--- OUTSIDE RECORDS SUMMARY | 2020-05-01 06:21 | XMS REPORT | Clinical Summary ---
Author Author Admin, Thierry CASTRO Organization [facility] Address Unknown Phone Unavailable Allergies, Adverse Reactions, Alerts Allergy Name Reaction Description Start Date Severity Status Pr ovider SULFA Critical Active Robert Alireza A PRN Conditions or Problems Problem Name Problem Code Onset Date Status Entry Date Provider Comment Standard Description Annotate Sinusitis, acute (sinus infection) 461.9 Active 2 Robert Alireza MATERIAL CONTROL MANAGER Acute sinusitis, unspecified Pharyngitis, acute / sore throat 462 Active 201 9 Robert Alireza MATERIAL CONTROL MANAGER Acute pharyngitis Sinusitis, acute 461.9 Active Quique Carl Acute sinusitis, unspecified Cough 786.2 Active Quique Frey MD Cough Medication List Medication Instructions Start Date Stop Date Generic Name NDC Status Provider Patient Instruction CEFDINIR 300 MG ORAL CAPSULE 1 po BID x 10 days CEFDINIR 53618704737 No Longer Active Quique Frey MD Active OXYCODONE-ACETAMINOPHEN 7.5-325 MG ORAL TABLET 1 tab tid OXYCODONE-ACETAMINOPHEN 53049236229 Active Quique Frey MD Active GABAPENTIN 300 MG ORAL CAPSULE 1 po qHS GABAPENT IN 62644946981 Active Quique Frey MD Active ZYRTEC ALLERGY 10 MG ORAL CAPSULE 1 po qd CE TIRIZINE HCL 20023576505 No Longer Active Quique Frey MD Active FLONASE 50 MCG/ACT NASAL SUSPENSION 1 spray each nostr il twice daily for allergies and runny nose FLUTICASONE PROPIONATE 85844417059 No Longer Active Quique Frey MD Active ZITHROMAX Z-SANG 250 MG ORAL TABLET 2 today, then 1 daily for 4 d ays AZITHROMYCIN 08345988435 No Longer Active Robert Alireza MATERIAL CONTROL MANAGER Active PREDNISONE 50 MG ORAL TABLET take 50 mg dialy for 6 days PREDNISONE 08985616306 No Longer Active Robert Alireza MATERIAL CONTROL MANAGER Active (OXYCODONE-ACETAMINOPHEN) (OXYCODONE-AC ETAMINOPHEN) No Longer Active Robert Alireza MATERIAL CONTROL MANAGER Active FLONASE 50 MCG/ACT NASAL SUSPENSION 1 spray each nostr il twice daily for allergies and runny nose FLONASE 50 MCG/ ACT NASAL SUSPENSION FLUTICASONE PROPIONATE Inactive ZYRTEC ALLERGY 10 MG ORAL CAPSULE 1 po qd ZYRTEC ALLERGY 10 MG ORAL CAPSULE CETIRIZINE HCL Inactive PREDNISONE 50 MG ORAL TABLET take 50 mg dialy for 6 days PREDNISONE 50 MG ORAL TABLET 172948 PREDNISONE Inactive ZITHROMAX Z-SANG 250 MG ORAL TABLET 2 today, then 1 daily for 4 d ays ZITHROMAX Z-SANG 250 MG ORAL TABLET 821533 AZITHROMYCIN Inactive CEFDINIR 300 MG ORAL CAPSULE 1 po BID x 10 days 02/04 CEFDINIR 300 MG ORAL CAPSULE 151334 CEFDINIR Inactive Vital Signs Date Name Value [...] - Chem istry sodium, serum 138 mmol/L 683-156 7828/03/01 carbon dioxide, venous blood 29.2 mmol/L 21.0-32 [...] mg/dL Encounters Code Encounter Date Provider Facility CPT-08066 Level 3 Est. Patient 09:33:16 INTERVENTIONAL PAIN PHYSICIAN Quique Frey MD [facility] CPT-16204 Level 3 Est. Patient 10:05:19 INTERVENTIONAL PAIN PHYSICIAN Robert kurtz APRN [facility] Procedures Code Procedure Name Date Entry Date Standard Desc ription CPT-30812 Chest, 2 views 09:41:42 INTERVENTIONAL PAIN PHYSICIAN
--- OUTSIDE RECORDS SUMMARY | 2020-05-01 06:21 | XMS REPORT | Clinical Summary ---
Author Author Admin, Thierry CASTRO Organization [facility] Address Unknown Phone Unavailable Allergies, Adverse Reactions, Alerts Allergy Name Reaction Description Start Date Severity Status Pr ovider SULFA Critical Active Robert Alireza A PRN Conditions or Problems Problem Name Problem Code Onset Date Status Entry Date Provider Comment Standard Description Annotate Sinusitis, acute (sinus infection) 461.9 Active 2 Robert Alireza INSIDE SALES ASSOCIATE Acute sinusitis, unspecified Pharyngitis, acute / sore throat 462 Active 201 9 Robert Alireza INSIDE SALES ASSOCIATE Acute pharyngitis Sinusitis, acute 461.9 Active Quique Carl Acute sinusitis, unspecified Cough 786.2 Active Quique Frey MD Cough Medication List Medication Instructions Start Date Stop Date Generic Name NDC Status Provider Patient Instruction CEFDINIR 300 MG ORAL CAPSULE 1 po BID x 10 days CEFDINIR 00165958071 Active Quique Frey MD Active OXYCODONE-ACETAMINOPHEN 7.5-325 MG ORAL TABLET 1 tab tid OXYCODONE-ACETAMINOPHEN 37983886576 Active Quique Frey MD Active GABAPENTIN 300 MG ORAL CAPSULE 1 po qHS GABAPENT IN 52191035197 Active Quique Frey MD Active ZYRTEC ALLERGY 10 MG ORAL CAPSULE 1 po qd CE TIRIZINE HCL 50711135427 No Longer Active Quique Frey MD Active FLONASE 50 MCG/ACT NASAL SUSPENSION 1 spray each nostr il twice daily for allergies and runny nose FLUTICASONE PROPIONATE 38060221380 No Longer Active Quique Frey MD Active ZITHROMAX Z-SANG 250 MG ORAL TABLET 2 today, then 1 daily for 4 d ays AZITHROMYCIN 06382106618 No Longer Active Robert Alireza INSIDE SALES ASSOCIATE Active PREDNISONE 50 MG ORAL TABLET take 50 mg dialy for 6 days PREDNISONE 69243517013 No Longer Active Robert Alireza INSIDE SALES ASSOCIATE Active (OXYCODONE-ACETAMINOPHEN) (OXYCODONE-AC ETAMINOPHEN) No Longer Active Robert Alireza INSIDE SALES ASSOCIATE Active FLONASE 50 MCG/ACT NASAL SUSPENSION 1 spray each nostr il twice daily for allergies and runny nose FLONASE 50 MCG/ ACT NASAL SUSPENSION FLUTICASONE PROPIONATE Inactive ZYRTEC ALLERGY 10 MG ORAL CAPSULE 1 po qd ZYRTEC ALLERGY 10 MG ORAL CAPSULE CETIRIZINE HCL Inactive PREDNISONE 50 MG ORAL TABLET take 50 mg dialy for 6 days PREDNISONE 50 MG ORAL TABLET 507260 PREDNISONE Inactive ZITHROMAX Z-SANG 250 MG ORAL TABLET 2 today, then 1 daily for 4 d ays ZITHROMAX Z-SANG 250 MG ORAL TABLET 603232 AZITHROMYCIN Inactive Vital Signs Date Name Value [...] - Chem istry sodium, serum 138 mmol/L 129-552 5536/03/01 carbon dioxide, venous blood 29.2 mmol/L 21.0-32 [...] mg/dL Encounters Code Encounter Date Provider Facility CPT-95296 Level 3 Est. Patient 09:33:16 WORKERS' COMPENSATION HEARINGS OFFICER Quique Frey MD [facility] CPT-00310 Level 3 Est. Patient 10:05:19 WORKERS' COMPENSATION HEARINGS OFFICER [facility] Procedures Code Procedure Name Date Entry Date Standard Desc ription CPT-22460 Chest, 2 views 09:41:42 WORKERS' COMPENSATION HEARINGS OFFICER
--- OUTSIDE RECORDS SUMMARY | 2020-05-01 06:21 | XMS REPORT | Clinical Summary ---
Author Author Admin, Thierry CASTRO Organization [facility] Address Unknown Phone Unavailable Allergies, Adverse Reactions, Alerts Allergy Name Reaction Description Start Date Severity Status Pr ovider SULFA Critical Active Robert Alireza A PRN Conditions or Problems Problem Name Problem Code Onset Date Status Entry Date Provider Comment Standard Description Annotate Sinusitis, acute (sinus infection) 461.9 Active 2 Robert Alireza GEARCASE ASSEMBLER Acute sinusitis, unspecified Pharyngitis, acute / sore throat 462 Active 201 9 Robert Alireza GEARCASE ASSEMBLER Acute pharyngitis Sinusitis, acute 461.9 Active Quique Carl Acute sinusitis, unspecified Cough 786.2 Active Quique Frey MD Cough Medication List Medication Instructions Start Date Stop Date Generic Name NDC Status Provider Patient Instruction CEFDINIR 300 MG ORAL CAPSULE 1 po BID x 10 days CEFDINIR 01062295772 Active Quique Frey MD Active OXYCODONE-ACETAMINOPHEN 7.5-325 MG ORAL TABLET 1 tab tid OXYCODONE-ACETAMINOPHEN 55771900960 Active Quique Frey MD Active GABAPENTIN 300 MG ORAL CAPSULE 1 po qHS GABAPENT IN 95517266312 Active Quique Frey MD Active ZYRTEC ALLERGY 10 MG ORAL CAPSULE 1 po qd CE TIRIZINE HCL 87402169931 No Longer Active Quique Frey MD Active FLONASE 50 MCG/ACT NASAL SUSPENSION 1 spray each nostr il twice daily for allergies and runny nose FLUTICASONE PROPIONATE 36354343401 No Longer Active Quique Frey MD Active ZITHROMAX Z-SANG 250 MG ORAL TABLET 2 today, then 1 daily for 4 d ays AZITHROMYCIN 37245544163 No Longer Active Robert Alireza GEARCASE ASSEMBLER Active PREDNISONE 50 MG ORAL TABLET take 50 mg dialy for 6 days PREDNISONE 36551417915 No Longer Active Robert Alireza GEARCASE ASSEMBLER Active (OXYCODONE-ACETAMINOPHEN) (OXYCODONE-AC ETAMINOPHEN) No Longer Active Robert Alireza GEARCASE ASSEMBLER Active FLONASE 50 MCG/ACT NASAL SUSPENSION 1 spray each nostr il twice daily for allergies and runny nose FLONASE 50 MCG/ ACT NASAL SUSPENSION FLUTICASONE PROPIONATE Inactive ZYRTEC ALLERGY 10 MG ORAL CAPSULE 1 po qd ZYRTEC ALLERGY 10 MG ORAL CAPSULE CETIRIZINE HCL Inactive PREDNISONE 50 MG ORAL TABLET take 50 mg dialy for 6 days PREDNISONE 50 MG ORAL TABLET 971779 PREDNISONE Inactive ZITHROMAX Z-SANG 250 MG ORAL TABLET 2 today, then 1 daily for 4 d ays ZITHROMAX Z-SANG 250 MG ORAL TABLET 978331 AZITHROMYCIN Inactive Vital Signs Date Name Value [...] - Chem istry sodium, serum 138 mmol/L 088-634 7051/03/01 carbon dioxide, venous blood 29.2 mmol/L 21.0-32 [...] mg/dL Encounters Code Encounter Date Provider Facility CPT-14897 Level 3 Est. Patient 09:33:16 FIBER HEEL PIECE SHAPER Quique Frey MD [facility] CPT-40977 Level 3 Est. Patient 10:05:19 FIBER HEEL PIECE SHAPER [facility] Procedures Code Procedure Name Date Entry Date Standard Desc ription CPT-55830 Chest, 2 views 09:41:42 FIBER HEEL PIECE SHAPER
--- OUTSIDE RECORDS SUMMARY | 2020-05-01 06:21 | XMS REPORT | Clinical Summary ---
Author Author Admin, Thierry CASTRO Organization [facility] Address Unknown Phone Unavailable Allergies, [...] 1 po BID BUPROPION HCL (SMOKING DETER) 34068970678 Activ e Quique Frey MD Active OXYCODONE-ACETAMINOPHEN 7.5-325 MG ORAL TABLET 1 po TID OXYCODONE-ACETAMINOPHEN 07708882817 Active Quique Frey MD Active GABAPENTIN 300 MG ORAL CAPSULE 1 po qHS GABAP ENTIN 65778144464 No Longer Active Quique Frey MD Active CEFDINIR 300 MG ORAL CAPSULE 1 po BID x 10 days CEFDINIR 88800433282 No Longer Active Quique Frey MD Active ZYRTEC ALLERGY 10 MG ORAL CAPSULE 1 po qd CE TIRIZINE HCL 71622207681 No Longer Active Quique Frey MD Active FLONASE 50 MCG/ACT NASAL SUSPENSION 1 spray each nostr il twice daily for allergies and runny nose FLUTICASONE PROPIONATE 86228344129 No Longer Active Quique Frey MD Active ZITHROMAX Z-SANG 250 MG ORAL TABLET 2 today, then 1 daily for 4 d ays AZITHROMYCIN 16527179735 No Longer Active Robert Alireza CRACKER AND COOKIE MACHINE OPERATOR Active PREDNISONE 50 MG ORAL TABLET take 50 mg dialy for 6 days PREDNISONE 48968820532 No Longer Active Robert Alireza CRACKER AND COOKIE MACHINE OPERATOR Active (OXYCODONE-ACETAMINOPHEN) (OXYCODONE-AC ETAMINOPHEN) No Longer Active Robert Alireza CRACKER AND COOKIE MACHINE OPERATOR Active FLONASE 50 MCG/ACT NASAL SUSPENSION 1 spray each nostr il twice daily for allergies and runny nose FLONASE 50 MCG/ ACT NASAL SUSPENSION FLUTICASONE PROPIONATE Inactive ZYRTEC ALLERGY 10 MG ORAL CAPSULE 1 po qd ZYRTEC ALLERGY 10 MG ORAL CAPSULE CETIRIZINE HCL Inactive GABAPENTIN 300 MG ORAL CAPSULE 1 po qHS GABAPENTIN 300 MG ORAL CAPSULE 490885 GABAPENTIN Inactive PREDNISONE 50 MG ORAL TABLET take 50 mg dialy for 6 days PREDNISONE 50 MG ORAL TABLET 182120 PREDNISONE Inactive ZITHROMAX Z-SANG 250 MG ORAL TABLET 2 today, then 1 daily for 4 d ays ZITHROMAX Z-SANG 250 MG ORAL TABLET 756954 AZITHROMYCIN Inactive CEFDINIR 300 MG ORAL CAPSULE 1 po BID x 10 days 02/04 CEFDINIR 300 MG ORAL CAPSULE 311285 CEFDINIR Inactive Vital Signs Date Name Value [...] - Chem istry sodium, serum 138 mmol/L 146-878 0437/03/01 carbon dioxide, venous blood 29.2 mmol/L 21.0-32 [...] mg/dL Encounters Code Encounter Date Provider Facility CPT-46041 Level 4 Est. Patient 13:56:52 CDT Quique Frey MD [facility] CPT-25060 Level 3 Est. Patient 09:33:16 CLERK TO JUSTICE Quique Frey MD [facility] CPT-10885 Level 3 Est. Patient 10:05:19 CLERK TO JUSTICE Robert kurtz APRN [facility] Procedures Code Procedure Name Date Entry Date Standard Desc ription CPT-74756 Chest, 2 views 09:41:42 CLERK TO JUSTICE
--- OUTSIDE RECORDS SUMMARY | 2020-05-01 06:21 | XMS REPORT | Clinical Summary ---
Author Author Admin, Thierry CASTRO Organization [facility] Address Unknown Phone Unavailable Allergies, Adverse Reactions, Alerts Allergy Name Reaction Description Start Date Severity Status Pr ovider SULFA Critical Active Robret Alireza A PRN Conditions or Problems Problem Name Problem Code Onset Date Status Entry Date Provider Comment Standard Description Annotate Sinusitis, acute (sinus infection) 461.9 Active 2 Robert Alireza GRANT SPECIALIST Acute sinusitis, unspecified Pharyngitis, acute / sore throat 462 Active 201 9 Robert Alireza GRANT SPECIALIST Acute pharyngitis Sinusitis, acute 461.9 Active Quique Carl Acute sinusitis, unspecified Cough 786.2 Active Quique Frey MD Cough Medication List Medication Instructions Start Date Stop Date Generic Name NDC Status Provider Patient Instruction CEFDINIR 300 MG ORAL CAPSULE 1 po BID x 10 days CEFDINIR 40418861767 Active Quique Frey MD Active OXYCODONE-ACETAMINOPHEN 7.5-325 MG ORAL TABLET 1 tab tid OXYCODONE-ACETAMINOPHEN 83834917648 Active Quique Frey MD Active GABAPENTIN 300 MG ORAL CAPSULE 1 po qHS GABAPENT IN 75067305939 Active Quique Frey MD Active ZYRTEC ALLERGY 10 MG ORAL CAPSULE 1 po qd CE TIRIZINE HCL 85366565854 No Longer Active Quique Frey MD Active FLONASE 50 MCG/ACT NASAL SUSPENSION 1 spray each nostr il twice daily for allergies and runny nose FLUTICASONE PROPIONATE 72411472001 No Longer Active Quique Frey MD Active ZITHROMAX Z-SANG 250 MG ORAL TABLET 2 today, then 1 daily for 4 d ays AZITHROMYCIN 95843961807 No Longer Active Robert Alireza GRANT SPECIALIST Active PREDNISONE 50 MG ORAL TABLET take 50 mg dialy for 6 days PREDNISONE 43368186191 No Longer Active Robert Alireza GRANT SPECIALIST Active (OXYCODONE-ACETAMINOPHEN) (OXYCODONE-AC ETAMINOPHEN) No Longer Active Robert Alireza GRANT SPECIALIST Active FLONASE 50 MCG/ACT NASAL SUSPENSION 1 spray each nostr il twice daily for allergies and runny nose FLONASE 50 MCG/ ACT NASAL SUSPENSION 0758876 FLUTICASONE PROPIONATE Inactive ZYRTEC ALLERGY 10 MG ORAL CAPSULE 1 po qd ZYRTEC ALLERGY 10 MG ORAL CAPSULE CETIRIZINE HCL Inactive PREDNISONE 50 MG ORAL TABLET take 50 mg dialy for 6 days PREDNISONE 50 MG ORAL TABLET 203916 PREDNISONE Inactive ZITHROMAX Z-SANG 250 MG ORAL TABLET 2 today, then 1 daily for 4 d ays ZITHROMAX Z-SANG 250 MG ORAL TABLET 680155 AZITHROMYCIN Inactive Vital Signs Date Name Value [...] - Chem istry sodium, serum 138 mmol/L 367-854 2011/03/01 carbon dioxide, venous blood 29.2 mmol/L 21.0-32 [...] mg/dL Encounters Code Encounter Date Provider Facility CPT-82076 Level 3 Est. Patient 09:33:16 FINAL INSPECTOR TRUCK TRAILER Quique Frey MD [facility] CPT-19470 Level 3 Est. Patient 10:05:19 FINAL INSPECTOR TRUCK TRAILER [facility] Procedures Code Procedure Name Date Entry Date Standard Desc ription CPT-45657 Chest, 2 views 09:41:42 FINAL INSPECTOR TRUCK TRAILER
--- OUTSIDE RECORDS SUMMARY | 2020-05-01 06:21 | XMS REPORT | Clinical Summary ---
Author Author Admin, Thierry CASTRO Organization [facility] Address Unknown Phone Unavailable Allergies, Adverse Reactions, Alerts Allergy Name Reaction Description Start Date Severity Status Pr ovider SULFA Critical Active Robert Alireza A PRN Conditions or Problems Problem Name Problem Code Onset Date Status Entry Date Provider Comment Standard Description Annotate Sinusitis, acute (sinus infection) 461.9 Active 2 Robert Alireza PACK CHANGER Acute sinusitis, unspecified Pharyngitis, acute / sore throat 462 Active 201 9 Robert Alireza PACK CHANGER Acute pharyngitis Sinusitis, acute 461.9 Active Quique Carl Acute sinusitis, unspecified Cough 786.2 Active Quique Frey MD Cough Medication List Medication Instructions Start Date Stop Date Generic Name NDC Status Provider Patient Instruction CEFDINIR 300 MG ORAL CAPSULE 1 po BID x 10 days CEFDINIR 90363493618 Active Quique Frey MD Active OXYCODONE-ACETAMINOPHEN 7.5-325 MG ORAL TABLET 1 tab tid OXYCODONE-ACETAMINOPHEN 21541718954 Active Quique Frey MD Active GABAPENTIN 300 MG ORAL CAPSULE 1 po qHS GABAPENT IN 34873690361 Active Quique Frey MD Active ZYRTEC ALLERGY 10 MG ORAL CAPSULE 1 po qd CE TIRIZINE HCL 08886799370 No Longer Active Quique Frey MD Active FLONASE 50 MCG/ACT NASAL SUSPENSION 1 spray each nostr il twice daily for allergies and runny nose FLUTICASONE PROPIONATE 66928517695 No Longer Active Quique Frey MD Active ZITHROMAX Z-SANG 250 MG ORAL TABLET 2 today, then 1 daily for 4 d ays AZITHROMYCIN 50420100291 No Longer Active Robert Alireza PACK CHANGER Active PREDNISONE 50 MG ORAL TABLET take 50 mg dialy for 6 days PREDNISONE 32592075298 No Longer Active Robert Alireza PACK CHANGER Active (OXYCODONE-ACETAMINOPHEN) (OXYCODONE-AC ETAMINOPHEN) No Longer Active Robert Alireza PACK CHANGER Active FLONASE 50 MCG/ACT NASAL SUSPENSION 1 spray each nostr il twice daily for allergies and runny nose FLONASE 50 MCG/ ACT NASAL SUSPENSION 8419164 FLUTICASONE PROPIONATE Inactive ZYRTEC ALLERGY 10 MG ORAL CAPSULE 1 po qd ZYRTEC ALLERGY 10 MG ORAL CAPSULE CETIRIZINE HCL Inactive PREDNISONE 50 MG ORAL TABLET take 50 mg dialy for 6 days PREDNISONE 50 MG ORAL TABLET 662190 PREDNISONE Inactive ZITHROMAX Z-SANG 250 MG ORAL TABLET 2 today, then 1 daily for 4 d ays ZITHROMAX Z-SANG 250 MG ORAL TABLET 282068 AZITHROMYCIN Inactive Vital Signs Date Name Value [...] - Chem istry sodium, serum 138 mmol/L 321-543 1940/03/01 carbon dioxide, venous blood 29.2 mmol/L 21.0-32 [...] mg/dL Encounters Code Encounter Date Provider Facility CPT-00823 Level 3 Est. Patient 09:33:16 RESEARCH HYDROLOGIST Quique Frey MD [facility] CPT-67695 Level 3 Est. Patient 10:05:19 RESEARCH HYDROLOGIST [facility] Procedures Code Procedure Name Date Entry Date Standard Desc ription CPT-03094 Chest, 2 views 09:41:42 RESEARCH HYDROLOGIST
--- OUTSIDE RECORDS SUMMARY | 2020-05-01 06:21 | XMS REPORT | Clinical Summary ---
Author Author Admin, Thierry CASTRO Organization [employer] [facility] Address Unknown Phone Unavailable Allergies, Adverse [...] 1 po BID BUPROPION HCL (SMOKING DETER) 31529108117 Activ e Quique Frey MD Active OXYCODONE-ACETAMINOPHEN 7.5-325 MG ORAL TABLET 1 po TID OXYCODONE-ACETAMINOPHEN 18741084045 Active Quique Frey MD Active GABAPENTIN 300 MG ORAL CAPSULE 1 po qHS GABAP ENTIN 50650329834 No Longer Active Quique Frey MD Active CEFDINIR 300 MG ORAL CAPSULE 1 po BID x 10 days CEFDINIR 51212575188 No Longer Active Quique Frey MD Active ZYRTEC ALLERGY 10 MG ORAL CAPSULE 1 po qd CE TIRIZINE HCL 02046038783 No Longer Active Quique Frey MD Active FLONASE 50 MCG/ACT NASAL SUSPENSION 1 spray each nostr il twice daily for allergies and runny nose FLUTICASONE PROPIONATE 03273237991 No Longer Active Quique Frey MD Active ZITHROMAX Z-SANG 250 MG ORAL TABLET 2 today, then 1 daily for 4 d ays AZITHROMYCIN 07067355446 No Longer Active Robert Alireza PRIMARY EDUCATION PROFESSOR Active PREDNISONE 50 MG ORAL TABLET take 50 mg dialy for 6 days PREDNISONE 29426577752 No Longer Active Robert Alireza PRIMARY EDUCATION PROFESSOR Active (OXYCODONE-ACETAMINOPHEN) (OXYCODONE-AC ETAMINOPHEN) No Longer Active Robert Alireza PRIMARY EDUCATION PROFESSOR Active FLONASE 50 MCG/ACT NASAL SUSPENSION 1 spray each nostr il twice daily for allergies and runny nose FLONASE 50 MCG/ ACT NASAL SUSPENSION FLUTICASONE PROPIONATE Inactive ZYRTEC ALLERGY 10 MG ORAL CAPSULE 1 po qd ZYRTEC ALLERGY 10 MG ORAL CAPSULE CETIRIZINE HCL Inactive GABAPENTIN 300 MG ORAL CAPSULE 1 po qHS GABAPENTIN 300 MG ORAL CAPSULE 187161 GABAPENTIN Inactive PREDNISONE 50 MG ORAL TABLET take 50 mg dialy for 6 days PREDNISONE 50 MG ORAL TABLET 415268 PREDNISONE Inactive ZITHROMAX Z-SANG 250 MG ORAL TABLET 2 today, then 1 daily for 4 d ays ZITHROMAX Z-SANG 250 MG ORAL TABLET 366579 AZITHROMYCIN Inactive CEFDINIR 300 MG ORAL CAPSULE 1 po BID x 10 days 02/04 CEFDINIR 300 MG ORAL CAPSULE 880338 CEFDINIR Inactive Vital Signs Date Name Value [...] - Chem istry sodium, serum 138 mmol/L 817-523 3775/03/01 carbon dioxide, venous blood 29.2 mmol/L 21.0-32 [...] mg/dL Encounters Code Encounter Date Provider Facility CPT-29941 Level 4 Est. Patient 13:56:52 CDT Quique Frey MD [facility] CPT-22980 Level 3 Est. Patient 09:33:16 FIXED INCOME MANAGER Quique Frey MD [facility] CPT-69419 Level 3 Est. Patient 10:05:19 FIXED INCOME MANAGER Robert kurtz APRN [facility] Procedures Code Procedure Name Date Entry Date Standard Desc ription CPT-91612 Chest, 2 views 09:41:42 FIXED INCOME MANAGER
--- OUTSIDE RECORDS SUMMARY | 2020-05-01 06:21 | XMS REPORT | Clinical Summary ---
Author Author Admin, Thierry CASTRO Organization [employer] [facility] Address Unknown Phone Unavailable Allergies, Adverse [...] 1 po BID BUPROPION HCL (SMOKING DETER) 24941366810 Activ e Quique Frey MD Active OXYCODONE-ACETAMINOPHEN 7.5-325 MG ORAL TABLET 1 po TID OXYCODONE-ACETAMINOPHEN 60854523283 Active Quique Frey MD Active GABAPENTIN 300 MG ORAL CAPSULE 1 po qHS GABAP ENTIN 39947766888 No Longer Active Quique Frey MD Active CEFDINIR 300 MG ORAL CAPSULE 1 po BID x 10 days CEFDINIR 75982126085 No Longer Active Quique Frey MD Active ZYRTEC ALLERGY 10 MG ORAL CAPSULE 1 po qd CE TIRIZINE HCL 13501778521 No Longer Active Quique Frey MD Active FLONASE 50 MCG/ACT NASAL SUSPENSION 1 spray each nostr il twice daily for allergies and runny nose FLUTICASONE PROPIONATE 57614349978 No Longer Active Quique Frey MD Active ZITHROMAX Z-SANG 250 MG ORAL TABLET 2 today, then 1 daily for 4 d ays AZITHROMYCIN 67119706607 No Longer Active Robert Alireza NURSE SCHOOL Active PREDNISONE 50 MG ORAL TABLET take 50 mg dialy for 6 days PREDNISONE 77565826022 No Longer Active Robert Alireza NURSE S[employer]OL Active (OXYCODONE-ACETAMINOPHEN) (OXYCODONE-AC ETAMINOPHEN) No Longer Active Robert Alireza NURSE SCHOOL Active FLONASE 50 MCG/ACT NASAL SUSPENSION 1 spray each nostr il twice daily for allergies and runny nose FLONASE 50 MCG/ ACT NASAL SUSPENSION FLUTICASONE PROPIONATE Inactive ZYRTEC ALLERGY 10 MG ORAL CAPSULE 1 po qd ZYRTEC ALLERGY 10 MG ORAL CAPSULE CETIRIZINE HCL Inactive GABAPENTIN 300 MG ORAL CAPSULE 1 po qHS GABAPENTIN 300 MG ORAL CAPSULE 139998 GABAPENTIN Inactive PREDNISONE 50 MG ORAL TABLET take 50 mg dialy for 6 days PREDNISONE 50 MG ORAL TABLET 906524 PREDNISONE Inactive ZITHROMAX Z-SANG 250 MG ORAL TABLET 2 today, then 1 daily for 4 d ays ZITHROMAX Z-SANG 250 MG ORAL TABLET 276240 AZITHROMYCIN Inactive CEFDINIR 300 MG ORAL CAPSULE 1 po BID x 10 days 02/04 CEFDINIR 300 MG ORAL CAPSULE 211761 CEFDINIR Inactive Vital Signs Date Name Value [...] 11 .6-14.8 platelet count 250 10^3/MM^3 10*3/mm3 414-441 2287/03/01 erythrocyte (RBC) count 5.17 10^6/MM^3 10*6/mm3 4.50-6.5 [...] 1.70 mg/dL 0.00-1.00 sodium, serum 138 mmol/L 680-230 3262/03/01 carbon dioxide, venous blood 29.2 mmol/L 21.0-32 [...] mg/dL Encounters Code Encounter Date Provider Facility CPT-95438 Level 4 Est. Patient 13:56:52 CDT Quique Frey MD [facility] CPT-41819 Level 3 Est. Patient 09:33:16 DRAWER LINER Quique Frey MD [facility] CPT-95669 Level 3 Est. Patient 10:05:19 DRAWER LINER Robert kurtz APRN [facility] Procedures Code Procedure Name Date Entry Date Standard Desc ription CPT-54690 Chest, 2 views 09:41:42 DRAWER LINER
--- OUTSIDE RECORDS SUMMARY | 2020-05-01 06:22 | XMS REPORT | Continuity of Care Document ---
Demographics Preferred Language Unknown Marital Status Unknown Mormon Affiliation Unknown Race Unknown Ethnic Group Unknown Author Organization Unknown Address Unknown Phone Unavailable Allergies Active Description Code Type Severity Reaction Onset Reported/Identified Relationship to Patient Clinical Status Yes SULFA ANTIBIOTICS 33 Drug Class High Anaphylaxis~Other 06/13/2016 06/13/2016 Yes SULFAMETHOXAZOLE-TRIMETHOPRIM 5893 DRUG INGREDI High Anaphylaxis~Other 06/13/2016 06/13/2016 Yes SULFA ANTIBIOTICS 33 Drug Class N/A Other 06/13/2016 06/13/2016 Yes Sulfa (Sulfonamide Antibiotics) H19930 0491 Drug Allergy Severe HIVES, THROAT S 04/27/2020 Medications There is no data. 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 07/17/2014 F 305.01 ALC OHOL ABUSE, CONTINUOUS DRINKING BEHAVIOR 11/14/2014 F 300.00 Anx iety state, unspec. 11/14/2014 F 787.91 Christelle rrhea, NOS 12/22/2014 F 216.3 HAZEL GN MARIAN SKIN FACE NEC 01/20/2015 F 300.00 Anx iety state, unspec. 03/10/2015 TAVARES GARAY F 729.5 Pain in limb 03/11/2015 TAVARES GARAY F 300.4 DYSTHYMIC DISORDER 03/11/2015 TAVARES GARAY 303.93 ALCOH DEP NEC/NOS-REMISS 03/11/2015 TAVARES GARAY 729.5 Pain in limb 03/27/2015 BERNA YEE F 784.2 SWELLING, MASS, OR LUMP IN HEAD AND NECK 04/24/2015 SEBASTIÁN IBRAHIM F 465.9 Upper respiratory infection, acute, NOS 05/13/2015 TAVARES GARAY 709.9 Other skin disease, unspec. 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 06/05/2015 SIDES, IKE F 380.10 Otitis externa, unspec 06/05/2015 SIDES, IKE Dsouza 724.5 BACKACHE, UNSPECIFIED 06/19/2015 SIDES, IKE F 300.00 Anxiety state, unspec. 04/04/2016 SIDES, IKE F B96.89 Other specified bacterial agents as the cause of diseases classified elsewhere 04/04/2016 SIDES, IKE F F41.9 Anxiety disorder, unspecified 04/04/2016 SIDES, IKE F J01.00 Acute maxillary sinusitis, unspecified 04/04/2016 SIDES, IKE F S31.155A Open bite of abdominal wall, periumbilic region without penetration into peritoneal cavity, initial encounter 06/15/2016 BERNA YEE P L98.9 Disorder of the skin and subcutaneous tissue, unspecified BERNA YEE 03/09/2018 SIDES, IKE F F41.0 Panic disorder [episodic paroxysmal anxiety] without agoraphobia 03/09/2018 SIDES, IKE F F41.9 Anxiety disorder, unspecified 03/12/2018 ADDY MARIE Z02 .1 Encounter for pre-employment examination 12/10/2018 P M542 Cervi calgia 12/10/2018 S M545 Low b ack pain 12/10/2018 S M546 Pain in thoracic spine 01/16/2019 J01.90 Sin usitis, acute (sinus infection) 01/16/2019 J02.9 Phar yngitis, acute / sore throat 01/25/2019 J01.90 Sin usitis, acute 01/25/2019 R05 Cough 05/01/2019 F41.1 Gene ralized anxiety disorder 05/01/2019 J30.9 Aidan rgic rhinitis 05/01/2019 M54.16 [place] pain, lumbar, with radiculopathy 05/01/2019 M54.2 Neck pain, chronic 05/01/2019 Z13.9 Heal th screening 05/01/2019 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 1 Sacroiliitis, not elsewhere classified 05/31/2019 CAYETANO VLADERRAMA M54. 2 Cervicalgia 05/31/2019 CAYETANO VALDERRAMA Z51. 89 Encounter for other specified aftercare 06/04/2019 CAYETANO VALDERRAMA M46. 1 Sacroiliitis, not elsewhere classified 06/04/2019 CAYETANO VALDERRAMA M54. 2 Cervicalgia 06/04/2019 CAYETANO VALDERRAMA Z51. 89 Encounter for other specified aftercare 06/22/2019 MAGO WAN F11.23 Opioid dependence with withdrawal 06/22/2019 MAGO WAN R07.89 Other chest pain 06/22/2019 MAGO WAN R07.9 Chest pain, unspecified 06/22/2019 MAGO WAN Z87.891 Personal history of nicotine dependence 12/25/2019 Z98.52 Hx of vasectomy 12/25/2019 Z68.23 BMI 23-23.9 01/02/2020 N45.1 Epid idymitis 01/27/2020 J34.89 Sin us congestion 03/30/2020 HUSEYIN PEMBERTON Final J30 .9 Allergic rhinitis, unspecified 03/30/2020 HUSEYIN PEMBERTON Reason For Visit J32.4 Chronic pansinusitis 03/30/2020 HUSEYIN PEMBERTON Final J34 .3 Hypertrophy of nasal turbinates 03/30/2020 HUSEYIN PEMBERTON Final R09.81 Nasal congestion Procedures There is no data. Results Test Result Range Complete blood count (CBC) with automate d white blood cell (WBC) differential - 04/27/20 12:30 Blood leukocytes automated count (number/volume) 6.6 10*3/uL 4.3-11.0 Blood erythrocytes automated count (number/volume) 4.39 10*6/uL 4.35-5.85 Venous blood hemoglobin measurement (mass/volume) 14.7 g/dL 13.3-17.7 Blood hematocrit (volume fraction) 43 % 40-54 Automated erythrocyte mean corpuscular volume 97 [ foz_us] 80-99 Automated erythrocyte mean corpuscular h emoglobin (mass per erythrocyte) 34 pg 25-34 Automated erythrocyte mean corpuscular h emoglobin concentration measurement (mass/volume) 35 g/dL 32-36 Automated erythrocyte distribution width ratio 12. 7 % 10.0- 14.5 Automated blood platelet count (count/volume) 149 10*3/uL 130-400 Automated blood platelet mean volume measurement 9.2 [foz_us] 7.4-10.4 Automated blood neutrophils/100 leukocytes 58 % 42-75 Automated blood lymphocytes/100 leukocytes 20 % 12-44 Blood monocytes/100 leukocytes 13 % 0-12 Automated blood eosinophils/100 leukocytes 8 % 0-10 Automated blood basophils/100 leukocytes 1 % 0-10 Blood neutrophils automated count (number/volume) 3.8 10*3 1.8-7.8 Blood lymphocytes automated count (number/volume) 1.3 10*3 1.0-4.0 Blood monocytes automated count (number/volume) 0. 9 10*3 0.0-1.0 Automated eosinophil count 0.5 10*3/uL 0 .0-0.3 Automated blood basophil count (count/volume) 0.1 10*3/uL 0.0-0.1 Whole blood basic metabolic panel - 12/16 12:30 Serum or plasma sodium measurement (moles/volume) 137 mmol/L 135-145 Serum or plasma potassium measurement (moles/volume) 3.8 mmol/L 3.6-5.0 Serum or plasma chloride measurement (moles/volume) 100 mmol/L 98-107 Carbon dioxide 27 mmol/L 21-32 Serum or plasma anion gap determination (moles/volume) 10 mmol/L 5-14 Serum or plasma urea nitrogen measurement (mass/volume ) 11 mg/dL 7-18 Serum or plasma creatinine measurement (mass/volume) 0.93 mg/dL 0.60-1.30 Serum or plasma urea nitrogen/creatinine mass ratio 12 NRG Serum or plasma creatinine measurement w ith calculation of estimated glomerular filtration rate > NRG Serum or plasma glucose measurement (mass/volume) 113 mg/dL 70-105 Serum or plasma calcium measurement (mass/volume) 9.2 mg/dL 8.5-10.1 Methicillin resistant Staphylococcus aur eus (MRSA) screening culture - 04/27/20 12:30 Methicillin resistant Staphylococcus aureus (MRSA) scr eening culture NEG NRG Coronavirus SARS-CoV-2 SO 2018 - 0 12:50 Coronavirus Ab [Units/volume] in Serum Negative Negative Encounters ACCT No. Visit Date/Time Discharge Status Pt. Type Provider Facility Loc./Unit Complaint [id number] 12/10/2018 09:41:00 Document Registration [id number] 10/16/2019 08:49:18 ACT Document Registration [id number] 03/30/2020 08:19:23 0 23:59:59 DIS Outpatient HUSEYIN PEMBERTON [facility] MARIAN RAD chronic sinusitis [id number] 07/10/2019 16:35:34 9 23:59:59 CLS Preadmit KASSIDY MONTGOMERY [facility] MARIAN PT Neck Pain [id number] 05/17/2019 07:57:01 9 23:59:59 DIS Outpatient CAYETANO VALDERRAMA [facility] MARIAN RAD lumbago [id number] 02/22/2019 09:01:03 9 17:22:00 DIS R Maryann Fox [facility] MARIAN PT LBP [id number] 04/10/2019 12:56:52 9 23:59:59 DIS Outpatient Maryann Fox [facility] MARIAN RAD Cervical radiculopa thy [id number] 04/05/2019 09:55:21 9 23:59:59 DIS Outpatient Maryann Fox [facility] MARIAN RAD cervical radiculopa thy [id number] 06/22/2019 13:20:00 06/22/2019 13:5 0:00 DIS Emergency SAVAGE [facility] ED [id number] 05/24/2019 11:00:00 05/31/2019 16:3 0:00 DIS R CAYETANO VALDERRAMA T [id number] 03/12/2018 10:45:00 03/12/2018 14:4 5:00 DIS Outpatient ADDY MARIE [facility] CL [id number] 03/09/2018 15:45:00 03/09/2018 19:4 5:00 DIS Outpatient [facility] ital CL [id number] 04/04/2016 14:45:00 04/04/2016 18:4 5:00 DIS CB [facility] CL [id number] 06/19/2015 10:15:00 06/19/2015 [facility]1 [id number]/05/2015 09:15:00 06/05/2015 13:1 5:00 DIS CB [facility] CL [id number] 05/31/2015 08:22:00 05/31/2015 09:1 4:00 DIS ED VASYL LOVE [facility] OT [id number] 05/13/2015 16:30:00 05/13/2015 20:3 0:[id number] 04/24/2015 15:30:00 04/24/2015 19:3 0:00 DIS CB SEBASTIÁN IBRAHIM [facility] CL [id number] 03/27/2015 13:28:00 03/27/2015 17:2 8:00 DIS OP BERNA YEE [facility] OT [id number] 03/10/2015 14:45:00 03/11/2015 00:4 5:00 DIS CB JARROD [facility] ital CL [id number] 03/10/2015 15:42:00 03/10/2015 19:4 2:00 DIS OP TAVARES GARAY [facility] ital OT [id number] 01/20/2015 13:45:00 Document Registration [id number] 12/22/2014 11:45:00 Document Registration [id number] 11/14/2014 09:15:00 Document Registration [id number] 07/17/2014 10:15:00 Document Registration [id number] 01/13/2014 21:11:00 Document Registration [id number] 01/13/2014 09:21:00 Document Registration [id number] 01/02/2020 09:20:13 ACT Unknown [id number] 04/27/2020 12:13:00 020 14:51:00 DIS Outpatient HUSEYIN PEMBERTON [facility] PREOP TURBINATE HYPERTROPHY [id number] 05/01/2020 08:00:00 P EN Preadmit HUSEYIN PEMBERTON MD [facility] SDC TURBINATE HYPERTROPHY [id number] 03/25/2019 14:30:00 03/25/2019 20: 30:00 DIS Outpatient Maryann Fox F/U.... [id number] 02/21/2019 13:43:00 02/21/2019 19: 43:00 DIS Outpatient Maryann Fox [id number] 01/24/2019 14:11:00 01/24/2019 20: 11:00 DIS Outpatient Maryann Fox [id number] 06/15/2016 13:38:51 6 16:45:00 DIS Outpatient BERNA YEE [facility] ENT
--- OUTSIDE RECORDS SUMMARY | 2020-05-01 06:22 | XMS REPORT | Clinical Summary ---
Author Author Admin, Thierry CASTRO Organization [facility] Address Unknown Phone Unavailable Allergies, Adverse Reactions, Alerts Allergy Name Reaction Description Start Date Severity Status Pr ovider SULFA Critical Active Robert Alireza A PRN Conditions or Problems Problem Name Problem Code Onset Date Status Entry Date Provider Comment Standard Description Annotate Sinusitis, acute (sinus infection) 461.9 Active 2 Robert Alireza AFTERSCHOOL BABYSITTER Acute sinusitis, unspecified Pharyngitis, acute / sore throat 462 Active 201 07/29/20 Robert Alireza AFTERSCHOOL BABYSITTER Acute pharyngitis Medication List Medication Instructions Start Date Stop Date Generic Name NDC Status Provider Patient Instruction FLONASE 50 MCG/ACT NASAL SUSPENSION 1 spray each nostr il twice daily for allergies and runny nose FLUTICASONE PROPIONATE 0102310299 0 Active Robert Alireza AFTERSCHOOL BABYSITTER Active ZYRTEC ALLERGY 10 MG ORAL CAPSULE 1 po qd CE TIRIZINE HCL 13365478189 Active Robert Alireza AFTERSCHOOL BABYSITTER Active ZITHROMAX Z-SANG 250 MG ORAL TABLET 2 today, then 1 daily for 4 d ays AZITHROMYCIN 63220130195 Active Robert Alireza AFTERSCHOOL BABYSITTER Acti ve PREDNISONE 50 MG ORAL TABLET take 50 mg dialy for 6 days PREDNISONE 04065588755 Active Robert Alireza AFTERSCHOOL BABYSITTER Active (OXYCODONE-ACETAMINOPHEN) (OXYCODONE-ACETAMIN OPHEN) Active Robert Alireza AFTERSCHOOL BABYSITTER Active Vital Signs Date Name Value Unit Range Description blood pressure, diastolic, repeated by physician 71 BP arteaga blood pressure, diastolic 71 mm[Hg] BP arteaga blood pressure, systolic, repeated by physician 140 BP sys blood pressure, systolic 140 mm[Hg] BP sys pulse rate E&M 74 /min Heart rate temperature E&M 97.6 [degF] Body temp erature weight E&M 152 [lb_av] Weight Measure d Encounters Code Encounter Date Provider Facility CPT-13041 Level 3 Est. Patient 10:05:19 MANAGER SPECIALTY Robert kurtz [employer]OL BABYSITTER [facility]
--- OUTSIDE RECORDS SUMMARY | 2020-05-01 06:22 | XMS REPORT | Clinical Summary ---
Author Author Admin, Thierry CASTRO Organization [facility] Address Unknown Phone Unavailable Allergies, Adverse Reactions, Alerts Allergy Name Reaction Description Start Date Severity Status Pr ovider SULFA Critical Active Robert Alireza A PRN Conditions or Problems Problem Name Problem Code Onset Date Status Entry Date Provider Comment Standard Description Annotate Sinusitis, acute (sinus infection) 461.9 Active 2 Robert Alireza DOG LICENSE OFFICER SUPERVISOR Acute sinusitis, unspecified Pharyngitis, acute / sore throat 462 Active 201 07/29/20 Robert Alireza DOG LICENSE OFFICER SUPERVISOR Acute pharyngitis Medication List Medication Instructions Start Date Stop Date Generic Name NDC Status Provider Patient Instruction FLONASE 50 MCG/ACT NASAL SUSPENSION 1 spray each nostr il twice daily for allergies and runny nose FLUTICASONE PROPIONATE 8070056556 0 Active Robert Alireza DOG LICENSE OFFICER SUPERVISOR Active ZYRTEC ALLERGY 10 MG ORAL CAPSULE 1 po qd CE TIRIZINE HCL 51520958835 Active Robert Alireza DOG LICENSE OFFICER SUPERVISOR Active ZITHROMAX Z-SANG 250 MG ORAL TABLET 2 today, then 1 daily for 4 d ays AZITHROMYCIN 23529712737 No Longer Active Robert Alireza DOG LICENSE OFFICER SUPERVISOR Active PREDNISONE 50 MG ORAL TABLET take 50 mg dialy for 6 days PREDNISONE 34394661144 No Longer Active Robert Alireza DOG LICENSE OFFICER SUPERVISOR Active (OXYCODONE-ACETAMINOPHEN) (OXYCODONE-ACETAMIN OPHEN) Active Robert Alireza DOG LICENSE OFFICER SUPERVISOR Active PREDNISONE 50 MG ORAL TABLET take 50 mg dialy for 6 days PREDNISONE 50 MG ORAL TABLET 212708 PREDNISONE Inactive ZITHROMAX Z-SANG 250 MG ORAL TABLET 2 today, then 1 daily for 4 d ays ZITHROMAX Z-SANG 250 MG ORAL TABLET 982991 AZITHROMYCIN Inactive Vital Signs Date Name Value [...] d Encounters Code Encounter Date Provider Facility CPT-68692 Level 3 Est. Patient 10:05:19 LETTER OF CREDIT CLERK Robert kurtz [facility]
--- OUTSIDE RECORDS SUMMARY | 2020-05-01 06:22 | XMS REPORT | Clinical Summary ---
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 Acute sinusitis, unspecified Pharyngitis, acute / sore throat 462 Active 201 07/29/20 Robert Alireza AUTO MACHINIST Acute pharyngitis Sinusitis, acute 461.9 Active Quique Carl Acute sinusitis, unspecified Cough 786.2 Active Quique Frey MD Cough Medication List Medication Instructions Start Date Stop Date Generic Name NDC Status Provider Patient Instruction OXYCODONE-ACETAMINOPHEN 7.5-325 MG ORAL TABLET 1 tab tid OXYCODONE-ACETAMINOPHEN 25353696743 Active Quique Frey MD Active GABAPENTIN 300 MG ORAL CAPSULE 1 po qHS GABAPENT IN 36979570534 Active Quique Frey MD Active ZYRTEC ALLERGY 10 MG ORAL CAPSULE 1 po qd CE TIRIZINE HCL 76310551758 No Longer Active Quique Frey MD Active FLONASE 50 MCG/ACT NASAL SUSPENSION 1 spray each nostr il twice daily for allergies and runny nose FLUTICASONE PROPIONATE 02174759181 No Longer Active Quique Frey MD Active ZITHROMAX Z-SANG 250 MG ORAL TABLET 2 today, then 1 daily for 4 d ays AZITHROMYCIN 60625702949 No Longer Active Robert Lay APRN Active PREDNISONE 50 MG ORAL TABLET take 50 mg dialy for 6 days PREDNISONE 06116427459 No Longer Active Robert Alireza AUTO MACHINIST Active (OXYCODONE-ACETAMINOPHEN) (OXYCODONE-AC ETAMINOPHEN) No Longer Active Robert Alireza AUTO MACHINIST Active FLONASE 50 MCG/ACT NASAL SUSPENSION 1 spray each nostr il twice daily for allergies and runny nose FLONASE 50 MCG/ ACT NASAL SUSPENSION 9999851 FLUTICASONE PROPIONATE Inactive ZYRTEC ALLERGY 10 MG ORAL CAPSULE 1 po qd ZYRTEC ALLERGY 10 MG ORAL CAPSULE CETIRIZINE HCL Inactive PREDNISONE 50 MG ORAL TABLET take 50 mg dialy for 6 days PREDNISONE 50 MG ORAL TABLET 182720 PREDNISONE Inactive ZITHROMAX Z-SANG 250 MG ORAL TABLET 2 today, then 1 daily for 4 d ays ZITHROMAX Z-SANG 250 MG ORAL TABLET 368254 AZITHROMYCIN Inactive Vital Signs Date Name Value [...] .6-14.8 platelet count 250 10^3/MM^3 10*3/mm3 142-424 Office Visit: chest congestion, headache s 302 - Chemistry HDL cholesterol, serum, target level 40 mg/dL cholesterol, target level 200 mg/dL triglyceride, target level 150 mg/dL Encounters Code Encounter Date Provider Facility CPT-11203 Level 3 Est. Patient 09:33:16 DIRECTOR MEDICAL Quique Frey MD [facility] CPT-17442 Level 3 Est. Patient 10:05:19 DIRECTOR MEDICAL Robert kurtz APRN [facility] Procedures Code Procedure Name Date Entry Date Standard Desc ription CPT-79571 Chest, 2 views 09:41:42 DIRECTOR MEDICAL
--- OUTSIDE RECORDS SUMMARY | 2020-05-01 06:22 | XMS REPORT | Clinical Summary ---
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 Acute sinusitis, unspecified Pharyngitis, acute / sore throat 462 Active 201 07/29/20 Robert Alireza MOVIE THEATER MANAGER Acute pharyngitis Medication List Medication Instructions Start Date Stop Date Generic Name NDC Status Provider Patient Instruction FLONASE 50 MCG/ACT NASAL SUSPENSION 1 spray each nostr il twice daily for allergies and runny nose FLUTICASONE PROPIONATE 4325724240 0 Active Robert Alireza MOVIE THEATER MANAGER Active ZYRTEC ALLERGY 10 MG ORAL CAPSULE 1 po qd CE TIRIZINE HCL 15107604171 Active Robert Alireza MOVIE THEATER MANAGER Active ZITHROMAX Z-SANG 250 MG ORAL TABLET 2 today, then 1 daily for 4 d ays AZITHROMYCIN 09329795677 No Longer Active Robert Alireza MOVIE THEATER MANAGER Active PREDNISONE 50 MG ORAL TABLET take 50 mg dialy for 6 days PREDNISONE 50858050569 No Longer Active Robert Alireza MOVIE THEATER MANAGER Active (OXYCODONE-ACETAMINOPHEN) (OXYCODONE-ACETAMIN OPHEN) Active Robert Alireza MOVIE THEATER MANAGER Active PREDNISONE 50 MG ORAL TABLET take 50 mg dialy for 6 days PREDNISONE 50 MG ORAL TABLET 185782 PREDNISONE Inactive ZITHROMAX Z-SANG 250 MG ORAL TABLET 2 today, then 1 daily for 4 d ays ZITHROMAX Z-SNAG 250 MG ORAL TABLET 868747 AZITHROMYCIN Inactive Vital Signs Date Name Value [...] d Encounters Code Encounter Date Provider Facility CPT-18111 Level 3 Est. 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
--- OUTSIDE RECORDS SUMMARY | 2020-05-01 06:22 | XMS REPORT | Clinical Summary ---
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 Acute sinusitis, unspecified Pharyngitis, acute / sore throat 462 Active 201 07/29/20 Robert Alireza OIL PRODUCER Acute pharyngitis Medication List Medication Instructions Start Date Stop Date Generic Name NDC Status Provider Patient Instruction FLONASE 50 MCG/ACT NASAL SUSPENSION 1 spray each nostr il twice daily for allergies and runny nose FLUTICASONE PROPIONATE 3688490410 0 Active Robert Alireza OIL PRODUCER Active ZYRTEC ALLERGY 10 MG ORAL CAPSULE 1 po qd CE TIRIZINE HCL 19888136114 Active Robert Alireza OIL PRODUCER Active ZITHROMAX Z-SANG 250 MG ORAL TABLET 2 today, then 1 daily for 4 d ays AZITHROMYCIN 98737153382 Active Robert Alireza OIL PRODUCER Acti ve PREDNISONE 50 MG ORAL TABLET take 50 mg dialy for 6 days PREDNISONE 81856606031 Active Robert Alireza OIL PRODUCER Active (OXYCODONE-ACETAMINOPHEN) (OXYCODONE-ACETAMIN OPHEN) Active Robert Alireza OIL PRODUCER Active Vital Signs Date Name Value Unit [...] d Encounters Code Encounter Date Provider Facility CPT-48508 Level 3 Est. 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
--- OUTSIDE RECORDS SUMMARY | 2020-05-01 06:22 | XMS REPORT | Clinical Summary ---
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 Acute sinusitis, unspecified Pharyngitis, acute / sore throat 462 Active 201 07/29/20 Robert Alireza DIVERSIFIED CROPS FARMWORKER Acute pharyngitis Medication List Medication Instructions Start Date Stop Date Generic Name NDC Status Provider Patient Instruction FLONASE 50 MCG/ACT NASAL SUSPENSION 1 spray each nostr il twice daily for allergies and runny nose FLUTICASONE PROPIONATE 3501432917 0 Active Robert Alireza DIVERSIFIED CROPS FARMWORKER Active ZYRTEC ALLERGY 10 MG ORAL CAPSULE 1 po qd CE TIRIZINE HCL 61209586965 Active Robert Alireza DIVERSIFIED CROPS FARMWORKER Active ZITHROMAX Z-SANG 250 MG ORAL TABLET 2 today, then 1 daily for 4 d ays AZITHROMYCIN 04197289072 Active Robert Alireza DIVERSIFIED CROPS FARMWORKER Acti ve PREDNISONE 50 MG ORAL TABLET take 50 mg dialy for 6 days PREDNISONE 07030903507 Active Robert Alireza DIVERSIFIED CROPS FARMWORKER Active (OXYCODONE-ACETAMINOPHEN) (OXYCODONE-ACETAMIN OPHEN) Active Robert Alireza DIVERSIFIED CROPS FARMWORKER Active Vital Signs Date Name Value Unit [...] d Encounters Code Encounter Date Provider Facility CPT-43737 Level 3 Est. 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
--- OUTSIDE RECORDS SUMMARY | 2020-05-01 06:22 | XMS REPORT | Clinical Summary ---
Author Author Admin, Thierry CASTRO Organization [facility] Address Unknown Phone Unavailable Allergies, Adverse Reactions, Alerts Allergy Name Reaction Description Start Date Severity Status Pr ovider SULFA Critical Active Robert Alireza A PRN Conditions or Problems Problem Name Problem Code Onset Date Status Entry Date Provider Comment Standard Description Annotate Sinusitis, acute (sinus infection) 461.9 Active 2 Robert Alireza DIE TURNER Acute sinusitis, unspecified Pharyngitis, acute / sore throat 462 Active 201 07/29/20 Robert Alireza DIE TURNER Acute pharyngitis Medication List Medication Instructions Start Date Stop Date Generic Name NDC Status Provider Patient Instruction FLONASE 50 MCG/ACT NASAL SUSPENSION 1 spray each nostr il twice daily for allergies and runny nose FLUTICASONE PROPIONATE 0011740323 0 Active Robert Alireza DIE TURNER Active ZYRTEC ALLERGY 10 MG ORAL CAPSULE 1 po qd CE TIRIZINE HCL 02739542052 Active Robert Alireza DIE TURNER Active ZITHROMAX Z-SANG 250 MG ORAL TABLET 2 today, then 1 daily for 4 d ays AZITHROMYCIN 61366727521 No Longer Active Robert Alireza DIE TURNER Active PREDNISONE 50 MG ORAL TABLET take 50 mg dialy for 6 days PREDNISONE 83615712382 No Longer Active Robert Alireza DIE TURNER Active (OXYCODONE-ACETAMINOPHEN) (OXYCODONE-ACETAMIN OPHEN) Active Robert Alireza DIE TURNER Active PREDNISONE 50 MG ORAL TABLET take 50 mg dialy for 6 days PREDNISONE 50 MG ORAL TABLET 971927 PREDNISONE Inactive ZITHROMAX Z-SANG 250 MG ORAL TABLET 2 today, then 1 daily for 4 d ays ZITHROMAX Z-SANG 250 MG ORAL TABLET 218897 AZITHROMYCIN Inactive Vital Signs Date Name Value [...] d Encounters Code Encounter Date Provider Facility CPT-00290 Level 3 Est. 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
--- OUTSIDE RECORDS SUMMARY | 2020-05-01 06:22 | XMS REPORT | Clinical Summary ---
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 Acute sinusitis, unspecified Pharyngitis, acute / sore throat 462 Active 201 07/29/20 Robert Alireza BOOTH SUPERVISOR Acute pharyngitis Sinusitis, acute 461.9 Active Quique Carl Acute sinusitis, unspecified Cough 786.2 Active Quique Frey MD Cough Medication List Medication Instructions Start Date Stop Date Generic Name NDC Status Provider Patient Instruction OXYCODONE-ACETAMINOPHEN 7.5-325 MG ORAL TABLET 1 tab tid OXYCODONE-ACETAMINOPHEN 21334251274 Active Quique Frey MD Active GABAPENTIN 300 MG ORAL CAPSULE 1 po qHS GABAPENT IN 54831877876 Active Quique Frey MD Active ZYRTEC ALLERGY 10 MG ORAL CAPSULE 1 po qd CE TIRIZINE HCL 81125433207 No Longer Active Quique Frey MD Active FLONASE 50 MCG/ACT NASAL SUSPENSION 1 spray each nostr il twice daily for allergies and runny nose FLUTICASONE PROPIONATE 51530702389 No Longer Active Quique Frey MD Active ZITHROMAX Z-SANG 250 MG ORAL TABLET 2 today, then 1 daily for 4 d ays AZITHROMYCIN 67405050544 No Longer Active Robert Lay APRN Active PREDNISONE 50 MG ORAL TABLET take 50 mg dialy for 6 days PREDNISONE 51928263949 No Longer Active Robert Alireza BOOTH SUPERVISOR Active (OXYCODONE-ACETAMINOPHEN) (OXYCODONE-AC ETAMINOPHEN) No Longer Active Robert Alireza BOOTH SUPERVISOR Active FLONASE 50 MCG/ACT NASAL SUSPENSION 1 spray each nostr il twice daily for allergies and runny nose FLONASE 50 MCG/ ACT NASAL SUSPENSION 0238213 FLUTICASONE PROPIONATE Inactive ZYRTEC ALLERGY 10 MG ORAL CAPSULE 1 po qd ZYRTEC ALLERGY 10 MG ORAL CAPSULE CETIRIZINE HCL Inactive PREDNISONE 50 MG ORAL TABLET take 50 mg dialy for 6 days PREDNISONE 50 MG ORAL TABLET 433093 PREDNISONE Inactive ZITHROMAX Z-SANG 250 MG ORAL TABLET 2 today, then 1 daily for 4 d ays ZITHROMAX Z-SANG 250 MG ORAL TABLET 037727 AZITHROMYCIN Inactive Vital Signs Date Name Value [...] Results Date Name Value Unit Range Description Office Visit: chest congestion, headache s 302 - Chemistry HDL cholesterol, serum, target level 40 mg/dL cholesterol, target level 200 mg/dL triglyceride, target level 150 mg/dL Encounters Code Encounter Date Provider Facility CPT-98056 Level 3 Est. Patient 09:33:16 PRODUCTION COUNTER Quique Frey MD [facility] CPT-96096 Level 3 Est. Patient 10:05:19 PRODUCTION COUNTER Robert kurtz APRN [facility] Procedures Code Procedure Name Date Entry Date Standard Desc ription CPT-21207 Chest, 2 views 09:41:42 PRODUCTION COUNTER
--- OUTSIDE RECORDS SUMMARY | 2020-05-01 06:22 | XMS REPORT | Clinical Summary ---
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 Acute sinusitis, unspecified Pharyngitis, acute / sore throat 462 Active 201 07/29/20 Robert Alireza SPLICER OPERATOR Acute pharyngitis Sinusitis, acute 461.9 Active Quique Carl Acute sinusitis, unspecified Cough 786.2 Active Quique Frey MD Cough Medication List Medication Instructions Start Date Stop Date Generic Name NDC Status Provider Patient Instruction OXYCODONE-ACETAMINOPHEN 7.5-325 MG ORAL TABLET 1 tab tid OXYCODONE-ACETAMINOPHEN 24358610852 Active Quique Frey MD Active GABAPENTIN 300 MG ORAL CAPSULE 1 po qHS GABAPENT IN 45321422916 Active Quique Frey MD Active ZYRTEC ALLERGY 10 MG ORAL CAPSULE 1 po qd CE TIRIZINE HCL 02439012807 No Longer Active Quique Frey MD Active FLONASE 50 MCG/ACT NASAL SUSPENSION 1 spray each nostr il twice daily for allergies and runny nose FLUTICASONE PROPIONATE 22820315890 No Longer Active Quique Frey MD Active ZITHROMAX Z-SANG 250 MG ORAL TABLET 2 today, then 1 daily for 4 d ays AZITHROMYCIN 40064665877 No Longer Active Robert Lay APRN Active PREDNISONE 50 MG ORAL TABLET take 50 mg dialy for 6 days PREDNISONE 18100591027 No Longer Active Robert Alireza SPLICER OPERATOR Active (OXYCODONE-ACETAMINOPHEN) (OXYCODONE-AC ETAMINOPHEN) No Longer Active Robert Alireza SPLICER OPERATOR Active FLONASE 50 MCG/ACT NASAL SUSPENSION 1 spray each nostr il twice daily for allergies and runny nose FLONASE 50 MCG/ ACT NASAL SUSPENSION 5868491 FLUTICASONE PROPIONATE Inactive ZYRTEC ALLERGY 10 MG ORAL CAPSULE 1 po qd ZYRTEC ALLERGY 10 MG ORAL CAPSULE CETIRIZINE HCL Inactive PREDNISONE 50 MG ORAL TABLET take 50 mg dialy for 6 days PREDNISONE 50 MG ORAL TABLET 821501 PREDNISONE Inactive ZITHROMAX Z-SANG 250 MG ORAL TABLET 2 today, then 1 daily for 4 d ays ZITHROMAX Z-SANG 250 MG ORAL TABLET 272591 AZITHROMYCIN Inactive Vital Signs Date Name Value [...] mg/dL Encounters Code Encounter Date Provider Facility CPT-02906 Level 3 Est. 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 Patient 10:05:19 WOOD CAR BUILDER Robert kurtz APRN [facility] Procedures Code Procedure Name Date Entry Date Standard Desc ription CPT-15332 Chest, 2 views 09:41:42 WOOD CAR BUILDER
[2020-05-01] MEDS ORDERED: LACTATED RINGERS 1,000 ML IV PRN (06:23)
[2020-05-01] MEDS ORDERED: ROCURONIUM 10 MG/ML 5 ML SYRINGE IV ONE (06:47)
[2020-05-01] MEDS ORDERED: ONDANSETRON 4 MG/2 ML (SDV) Z0FRAN ONE (06:47)
[2020-05-01] MEDS ORDERED: SEVOFLURANE (ULTANE) 15 ML INHAL SOLN ONE (06:47)
[2020-05-01] MEDS ORDERED: DEXAMETHASONE 10 MG/ML (DECADRON) 1 ML VIAL ONE (06:47)
[2020-05-01] MEDS ORDERED: proPOfol 200 MG/20 ML (DIPRIVAN) VIAL IV ONE ×2 (06:47→07:35)
[2020-05-01] MEDS ORDERED: fentaNYL INJECTION 100 MCG/2 ML AMP ONE (06:47)
[2020-05-01] MEDS ORDERED: MIDAZOLAM 2 MG/2 ML (VERSED) VIAL ONE (06:48)
[2020-05-01] MEDS ORDERED: COCAINE HCL 4% 2 ML SYR ONE (06:56)
[2020-05-01] MEDS ORDERED: MUPIROCIN 2% OINT 22 GM (BACTROBAN) TUBE ONE (06:57)
[2020-05-01] MEDS ORDERED: PHENYLEPHRINE 0.5% NASAL SPR (NEO-SYNEPHRINE) REG ONE (06:57)
[2020-05-01] MEDS ORDERED: BSS 15 ML ONE (06:57)
[2020-05-01] MEDS ORDERED: LIDOCAINE/EPI 1%-1:100,000 (XYLOCAINE) 20ML ONE (06:57)
--- NOTE | 2020-05-01 07:15 | Progress Note-Pre Operative ---
Pre-Operative Progress Note H&P Reviewed The H&P was reviewed, patient examined and no changes noted. Date Seen by Provider: May 01, 2020 Time Seen by Provider: 07:00 Date H&P Reviewed: May 01, 2020 Time H&P Reviewed: 07:00 Pre-Operative Diagnosis: Bilat nasal congestion with hyper of INf Turbs HUSEYIN PEMBERTON MD May 01, 2020 07:15
[2020-05-01] MEDS ORDERED: D5 1/2 NS W/KCL 20 MEQ/L 1,000 ML IV SCH (07:16)
--- NOTE | 2020-05-01 07:16 | Progress Note-Post Operative ---
Post-Operative Progess Note Surgeon (s)/Rodding Anode Worker (s) Surgeon HUSEYIN PEMBERTON MD Rodding Anode Worker n/a Pre-Operative Diagnosis Bilat nasal congestion with hyper of INf Turbs Post-Operative Diagnosis same Post-Op Procedure Note Date of Procedure: May 01, 2020 Name of Procedure Performed: Bilateral Partial REdiction of the INferior Turbinates Description & Findings Description and Findings: n/a Anesthesia Type get Estimated Blood Loss minimal Packing none. Specimen(s) collected/removed none HUSEYIN PEMBERTON MD May 01, 2020 07:16
[2020-05-01] MEDS ORDERED: ACETAMINOPHEN 325 MG TABLET PO PRN (07:30)
[2020-05-01] MEDS ORDERED: PROMETHAZINE INJ 25 MG/ML (PHENERGAN) AMP IVP PRN (07:30)
[2020-05-01] MEDS ORDERED: HYDROcodone/APAP 5 MG/325 MG (LORTAB) TAB PO PRN (07:30)
[2020-05-01] MEDS ORDERED: HYDROmorphone 2 MG/ML VIAL (DILAUDID) ONE (07:33)
[2020-05-01] MEDS ORDERED: SUGAMMADEX 500 MG/5 ML VIAL (BRIDION) IV ONE (07:40)
[2020-05-01] MEDS ORDERED: ONDANSETRON 4 MG/2 ML (SDV) Z0FRAN IVP PRN (08:00)
[2020-05-01] MEDS ORDERED: HYDROmorphone 2 MG/ML VIAL (DILAUDID) IV ONE (08:00)
[2020-05-01] MEDS ORDERED: HYDR-83 PO (08:22)
--- NOTE | 2020-05-01 09:10 | Anesthesia-General Post-Op ---
General Patient Condition Mental Status/LOC: Same as Preop Cardiovascular: Satisfactory Nausea/Vomiting: Absent Respiratory: Satisfactory Pain: Controlled Complications: Absent Post Op Complications Complications None Follow Up Care/Instructions Patient Instructions None needed. Anesthesia/Patient Condition Patient Condition Patient is doing well, no complaints, stable vital signs, no apparent adverse anesthesia problems. No complications reported per nursing. D/C home per [facility] Criteria: Yes ROBERTO FLYNN CRNA May 01, 2020 09:10
== END 2020-05-01 09:20 | disposition home or self-care (01) ==
LOC: SDC 06:11
PROVIDERS: ATTEND Otolaryngology Otolaryngology/Facial Plastic Surgery
DX: J34.3 Hypertrophy of nasal turbinates (principal); J34.89 Other specified disorders of nose and nasal sinuses; R09.81 Nasal congestion; Z91.040 Latex allergy status; Z80.2 Family history of malignant neoplasm of other respiratory and intrathoracic organs